=== PATIENT | male | born 1940 | race Caucasian/White ===

== ENCOUNTER 2017-12-15 16:58 | Inpatient (IN) | payer MEDICARE ==
[2017-12-15] MEDS ORDERED: SODIUM CHLORIDE 0.9% 1,000 ML IV ONE (17:20)
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
[2017-12-15] MEDS ORDERED: LORazepam 2 MG/ML INJ IV STA ×2 (17:48→22:24)
[2017-12-15 18:19] LABS: Basophils # (A) 0.1 k/uL (0-0.2); Basophils % (A) 1 %; Eosinophils # (A) 0.1 k/uL (0-0.7); Eosinophils % (A) 1 %; HCT 37.5 % (39.0-53.0); HGB 12.3 gm/dL (13.0-17.5); Lymphocytes # (A) 1.2 k/uL (1.0-4.8); Lymphocytes % (A) 19 %; MCH 28.7 pg (25.0-35.0); MCHC 32.8 g/dL (31.0-37.0); MCV 87.6 fL (80.0-100.0); Monocytes # (A) 0.5 k/uL (0-1.0); Monocytes % (A) 7 %; Neutrophils # (A) 4.6 k/uL (1.3-7.7); Neutrophils % (A) 70 %; Platelet Count 211 k/uL (150-450); RBC 4.28 m/uL (4.30-5.90); RDW 12.8 % (11.5-15.5); WBC 6.5 k/uL (3.8-10.6)
[2017-12-15 18:29] LABS: Ammonia <9 umol/L (<30); Lactic Acid, Venous 1.7 mmol/L (0.7-2.0)
[2017-12-15 18:31] LABS: ALT 32 U/L (21-72); AST 26 U/L (17-59); Albumin 4.4 g/dL (3.5-5.0); Alcohol <10 mg/dL; Alkaline Phosphatase 148 U/L (38-126); Amylase 163 U/L (30-110); Anion Gap 14 mmol/L; Blood Urea Nitrogen 16 mg/dL (9-20); Carbon Dioxide 25 mmol/L (22-30); Chloride 100 mmol/L (98-107); Glucose 351 mg/dL (74-99); Lipase 645 U/L (23-300); Potassium 4.6 mmol/L (3.5-5.1); Sodium 139 mmol/L (137-145); Total Bilirubin 0.5 mg/dL (0.2-1.3); Total Protein 7.4 g/dL (6.3-8.2)
[2017-12-15] MEDS ORDERED: INSULIN REGULAR 100 UNIT/ML VIAL IV ONE (18:46)
[2017-12-15 18:54] LABS: Glucose,Whole Blood 325 mg/dL (75-99)
[2017-12-15 21:28] LABS: Appearance,Urine Clear (Clear); Bilirubin,Urine Negative (Negative); Blood,Urine Negative (Negative); Color,Urine Light Yellow; Glucose,Urine (UA) 4+ (Negative); Ketones,Urine Negative (Negative); Leukocyte Esterase,Urine Negative (Negative); Nitrite,Urine Negative (Negative); Protein,Urine Negative (Negative); Specific Gravity,Urine 1.023 (1.001-1.035); Urobilinogen,Urine <2.0 mg/dL (<2.0)
[2017-12-15 21:37] LABS: Glucose,Whole Blood 162 mg/dL (75-99)
[2017-12-15 21:41] LABS: Amphetamine Screen,Urine Not Detected (NotDetected); Barbiturate Screen,Urine Not Detected (NotDetected); Benzodiazepines Screen,Urine Not Detected (NotDetected); Cocaine Screen,Urine Not Detected (NotDetected); Methadone Screen, Urine Not Detected (NotDetected); Opiate Screen,Urine Not Detected (NotDetected); Oxycodone Screen, Urine Not Detected (NotDetected); Phencyclidine Screen,Urine Not Detected (NotDetected); Tricyclic Antidepressant,Urine Not Detected (NotDetected); Urn Cannabinoid Scrn Not Detected (NotDetected)
--- NOTE | 2017-12-15 23:54 | CT ---
EXAMINATION TYPE: CT brain wo con DATE OF EXAM: 12/15/2017 COMPARISON: 04/16/2013 HISTORY: AMS CT DLP: 1065.90 mGycm Automated exposure control for dose reduction was used. FINDINGS: There is cerebral cortical atrophy. There is no mass effect nor midline shift. There is no sign of in tracranial hemorrhage. The calvarium is intact. There is mild mucosal thickening in ethmoid sinuses. There are small fluid levels in the maxillary sinuses. IMPRESSION: CEREBRAL ATROPHY. NO ACUTE INTRACRANIAL ABNORMALITY. WHILE SINUSITIS. BRAIN IS STABLE COMPARED TO OLD EXAM.
[2017-12-16 07:16] LABS: Glucose,Whole Blood 197 mg/dL (75-99)
[2017-12-16] MEDS: INSULIN ASPART 100 UNIT/ML 1 ML 10 ML VIAL SQ SCH ×4 (07:20→21:00)
[2017-12-16] MEDS: LISINOPRIL 2.5 MG TAB PO SCH (08:39)
[2017-12-16] MEDS: DONEPEZIL 10 MG TAB PO SCH (08:39)
[2017-12-16] MEDS: ESCITALOPRAM 10 MG TAB PO SCH (08:39)
[2017-12-16] MEDS: FUROSEMIDE 20 MG TAB PO SCH (08:39)
[2017-12-16 12:51] LABS: Glucose,Whole Blood 203 mg/dL (75-99)
[2017-12-16] MEDS ORDERED: ACETAMINOPHEN TAB 325 MG TAB PO PRN (14:17)
[2017-12-16] MEDS ORDERED: MAG HYDROX/AL HYDROX/SIMETH 30 ML CUP PO PRN (14:17)
[2017-12-16] MEDS ORDERED: MAGNESIUM HYDROXIDE 2,400 MG/10 ML CUP PO PRN (14:17)
[2017-12-16] MEDS: glipiZIDE 5 MG TAB PO SCH (15:36)
[2017-12-16 16:01] VITALS: BMI 24.2
[2017-12-16 17:30] LABS: Glucose,Whole Blood 252 mg/dL (75-99)
[2017-12-16] MEDS: metFORMIN 500 MG TAB PO SCH (17:45)
[2017-12-16 20:22] LABS: Glucose,Whole Blood 238 mg/dL (75-99)
[2017-12-16] MEDS ORDERED: NON-FORMULARY DRUG (Sitagliptin Phos/Metformin Hcl [Janumet 50-1,000 Mg Tablet] 1 TAB) PO SCH (21:00)
[2017-12-16] MEDS ORDERED: ATORVASTATIN 80 MG TAB PO SCH (21:00)
[2017-12-16] MEDS: ATORVASTATIN 80 MG TAB PO SCH (21:29)
[2017-12-17 06:58] LABS: Glucose,Whole Blood 189 mg/dL (75-99)
[2017-12-17] MEDS: INSULIN ASPART 100 UNIT/ML 1 ML 10 ML VIAL SQ SCH ×4 (07:41→21:00)
[2017-12-17] MEDS: INSULIN DETEMIR 100 UNIT/ML 10 ML VIAL SQ SCH (07:42)
[2017-12-17] MEDS ORDERED: FUROSEMIDE 20 MG TAB PO SCH (09:00)
[2017-12-17] MEDS ORDERED: ESCITALOPRAM 10 MG TAB PO SCH (09:00)
[2017-12-17] MEDS ORDERED: LISINOPRIL 2.5 MG TAB PO SCH (09:00)
[2017-12-17] MEDS ORDERED: DONEPEZIL 10 MG TAB PO SCH (09:00)
[2017-12-17] MEDS: LINAGLIPTIN 5 MG TABLET PO SCH (09:10)
[2017-12-17] MEDS: ESCITALOPRAM 10 MG TAB PO SCH (09:10)
[2017-12-17] MEDS: FUROSEMIDE 20 MG TAB PO SCH (09:10)
[2017-12-17] MEDS: LISINOPRIL 2.5 MG TAB PO SCH (09:10)
[2017-12-17] MEDS: metFORMIN 500 MG TAB PO SCH ×2 (09:10→17:32)
[2017-12-17] MEDS: DONEPEZIL 10 MG TAB PO SCH (09:11)
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
[2017-12-17 12:11] LABS: Glucose,Whole Blood 173 mg/dL (75-99)
[2017-12-17] MEDS ORDERED: glipiZIDE 10 MG TAB PO SCH (12:30)
[2017-12-17] MEDS: glipiZIDE 5 MG TAB PO SCH (12:52)
--- NOTE | 2017-12-17 14:38 | P.HP ---
Psychiatric H&P - . H&P Date: 12/17/17 History & Physical: IDENTIFYING DATA: Mr. Gomez is a 77-year-old male who has a history of Alzheimer's disease. He was admitted to the psychiatric unit involuntarily. HISTORY OF PRESENT ILLNESS: I interviewed the patient, reviewed the record and spoke to his . His only concern was ongoing conflict with his family including his , niece and son. He was unable to explain the reason for this hospitalization. He stated that he was in his car after leaving his niece' s home. The police pulled him over and brought him to the hospital. His completed a petition for hospitalization where she wrote that he is unable to control his personal behavior, he has frequent verbal outbursts leading to extreme foul language and leaving the house with no known destination and getting lost. She also noted in the petition that he made the statement "I'm either going to kill myself or kill you." His stated that the family noticed a change in his functioning and memory beginning about 4 years ago. They arranged an evaluation by a community neurologist who made the diagnosis of Alzheimer's disease. The patient refused continued follow-up with the neurologist. The neurologist initiated treatment with Aricept and titrated dose to a maximum of 10 mg per day. The reported little to no change in his functioning or his memory with the increased dose of Aricept. His family are primarily concerned about his impulsiveness, irritability and aggressive behavior. His reported this is a marked change from his normal self. She provided a list of her concerns and observations. For example, she complained that he rejects care suggestions from both his family and professionals. He canceled medical appointments including recommendations for mental health treatment and follow-up by the neurologist. He leaves the house in his car with no specific destination and becomes lost. For example she said that he called his sister [place] [address] [place] [address] and his sister had to drive to him and guide him back to her house. His called the [facility] after he had been missing from home for 9 hours. He had not taken his medication or eating properly. She complained that he currently has no ability to control his emotions and has extreme verbal outbursts and irrational behavior. He has displayed unusual r behaviors such as removing batteries from the garage door openers, withdrawing money from the bank account and carrying large sums of guevara, slamming doors, throwing objects such as coffee pots, remote controls, phone and shoes. She stated that rather than coming home to get his clothes she goes out and buys new clothing. He seems paranoid and feels people are hiding information and not communicating with him. She described incidents where he became confused, For example, in the middle of night he was "hallucinating or confused" where he woke up "messing with the bad" trying to "fix something" and when confronted he "snapped out of it and said "never mind". He does not remember his address or his phone number. He is confused about the month, the day and the year. He has difficulty conversing with people, he wanders around the house with no purpose, he has difficulty with basic household repairs and he easily gets frustrated. PAST PSYCHIATRIC HISTORY: He has had no past psychiatric hospitalizations or outpatient mental health treatment. PAST MEDICAL HISTORY: Diabetes mellitus, hyperlipidemia, hypertension, BPH. Intravenous consult appreciated. Computed tomography scan of the brain shows generalized atrophy. ALLERGIES: [No known drug allergies]. SUBSTANCE USE HISTORY: He denied history of drug or alcohol use. His denied that he is had a history of alcohol use problems.. Tobacco use: He is a former smoker. FAMILY PSYCHIATRIC/SUBSTANCE USE HISTORY: He is unaware of family history of mental illness. LEGAL HISTORY: Denied history of legal problems.. SOCIAL HISTORY: His born and raised in [place]. He graduated from high school. He's been to his current and only for 30 years. They have 2 adult children. One son lives at home. He is retired after 30 years from [employer]. He served in the [employer] and received an honorable discharge. He lives with his in their own home. He receives pension and Social Security. MENTAL STATUS EXAM: He presented as a casually groomed pleasant elderly man who maintained eye contact and appeared to attend to the interview. He had no distinguishing features or prominent physical abnormalities. He had a blunted and angry facial expression. He was alert and oriented to person, month and year. He knew he was in the hospital but did not know the name of the hospital. He showed slight psychomotor retardation but no abnormal movements. He had a normal gait. His speech was spontaneous with slight decrease in rhythm and volume. He had no articulation difficulties. His affect was dysphoric consisting of irritability and, anger and depression. He denied suicidal ideation or wishes. He denied homicidal ideation. He denied feeling hopeless, helpless or worthless. He ruminated about his family and his perception that his family are intrusive and uncaring. He did not express ideas reference or clear paranoid ideation. His thinking was concrete but his associations appeared logical. He did not demonstrate blocking or neologisms. He denied hallucinations and did not appear to be responding to internal stimuli. He denied hallucinations and did not appear to responding to internal stimuli. Global impression of intellect is average. He does not appear to have insight or understanding of his illness. We completed the Mini-Mental state exam and the frontal assessment staging of Alzheimer's disease. His total score on the Mini-Mental state exam was 19 consistent with mild to moderate cognitive impairment. He did not know the year or the date. He did not know the town or hospital. He was able to register 3 memory words but did not recall them after the attention and calculation component of the examination. He was unable to count backwards from 100 or spell the word "world " backwards. He demonstrated intact language skills that he name the pen and glasses. He is able to repeat the phrase "no if's, ands, and pots." He was able to follow 3 stage command, write a sentence and copy the drawing of intersecting pentagrams. We obtain information for the staging of the Functional Assessment Staging of Alzheimer's Disease from his . She describes problems with for for forgetting the location of objects, traveling to new locations and handling personal finances. He requires some assistance which selecting proper clothing but has no difficulty with putting clothing on properly. He shows no impairment with toileting, bathing, ambulating or communication skills. His FAST stage she has in the range of 3 or 4. STRENGTHS: Supportive family, adequate housing, adequate finances, access to appropriate medical care. WEAKNESSES: Health problems, progressive dementia. IMPRESSION: He is a 77-year-old male who has a history of probable Alzheimer's disease. He presented to the unit involuntarily with increasing impairment in functioning, paranoia, irritability and a change in personality. He shows no insight or understanding of his illness. The change in his personality with the irritability and increased aggressiveness is causing marked distress and concerned and his family. His performance on Mini- Mental state and the Functional Assessment Station of Alzheimer's Disease show mild to moderate functional impairment. It appears that the change in personality with the irritability and aggressiveness is disproportionate to the decline in his cognitive functioning. He should be treated on an inpatient basis with a combination of psychopharmacology and multimodal therapy. 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 Completed a second clinical certificate and proceed with involuntary hospitalization. Continue Aricept 10 mg daily, continue his other medications as recommended by the entry level sales consultant garde manger. When we receive a involuntary treatment order begin a trial of Depakote. Encourage participation in therapeutic groups and activities. Evaluate clinical status response to treatment on a daily basis. Laboratory Last Values WBC 6.5 k/uL (3.8-10.6) 12/15/17 18: RBC 4.28 m/uL (4.30-5.90) L 12/15/17 18: Hgb 12.3 gm/dL (13.0-17.5) L 12/15/17 18: Hct 37.5 % (39.0-53.0) L 12/15/17 18: MCV 87.6 fL (80.0-100.0) 12/15/17 18: MCH 28.7 pg (25.0-35.0) 12/15/17 18: MCHC 32.8 g/dL (31.0-37.0) 12/15/17 18: RDW 12.8 % (11.5-15.5) 12/15/17 18: Plt Count 211 k/uL (150-450) 12/15/17 18:02 Neutrophils % 70 % 12/15/17 18:02 Lymphocytes % 19 % 12/15/17 18:02 Monocytes % 7 % 12/15/17 18:02 Eosinophils % 1 % 12/15/17 18: Basophils % 1 % 12/15/17 18:02 Neutrophils # 4.6 k/uL (1.3-7.7) 12/15/17 18:02 Lymphocytes # 1.2 k/uL (1.0-4.8) 12/15/17 18: Monocytes # 0.5 k/uL (0-1.0) 12/15/17 18:02 Eosinophils # 0.1 k/uL (0-0.7) 12/15/17 18:02 Basophils # 0.1 k/uL (0-0.2) 12/15/17 18:02 Sodium 139 mmol/L (137-145) 12/15/17 18:02 Potassium 4.6 mmol/L (3.5-5.1) 12/15/17 18:02 Chloride 100 mmol/L (98-107) 12/15/17 18:02 Carbon Dioxide 25 mmol/L (22-30) 12/15/17 18:02 Anion Gap 14 mmol/L 12/15/17 18:02 BUN 16 mg/dL (9-20) 12/15/17 18:02 Creatinine 1.00 mg/dL (0.66-1.25) 12/15/17 18:02 Est GFR (CKD-EPI)AfAm 84 (>60 ml/min/1.73 sqM) 12/15/17 18:02 Est GFR (CKD-EPI)NonAf 72 (>60 ml/min/1.73 sqM) 12/15/17 18:02 Glucose 351 mg/dL (74-99) H 12/15/17 18:02 POC Glucose (mg/dL) 189 mg/dL (75-99) H 12/17/17 06:54 POC Glu Agricultural Economics Teacher ID Ghazal Chacon 12/17/17 06:54 Plasma Lactic Acid Joseph 1.7 mmol/L (0.7-2.0) 12/15/17 18: Calcium 10.0 mg/dL (8.4-10.2) 12/15/17 18:02 Total Bilirubin 0.5 mg/dL (0.2-1.3) 12/15/17 18:02 AST 26 U/L (17-59) 12/15/17 18:02 ALT 32 U/L (21-72) 12/15/17 18:02 Alkaline Phosphatase 148 U/L (38-126) H 12/15/17 18:02 Ammonia <9 umol/L (<30) 12/15/17 18:02 Total Protein 7.4 g/dL (6.3-8.2) 12/15/17 18:02 Albumin 4.4 g/dL (3.5-5.0) 12/15/17 18:02 Amylase 163 U/L (30-110) H 12/15/17 18:02 Lipase 645 U/L (23-300) H 12/15/17 18:02 Urine Color Light Yellow 12/15/17 21:17 Urine Appearance Clear (Clear) 12/15/17 21:17 Urine pH 6.0 (5.0-8.0) 12/15/17 21:17 Ur Specific [place] 1.023 (1.001-1.035) 12/15/17 21:17 Urine Protein Negative (Negative) 12/15/17 21:17 Urine Glucose (UA) 4+ (Negative) H 12/15/17 21:17 Urine Ketones Negative (Negative) 12/15/17 21:17 Urine Blood Negative (Negative) 12/15/17 21:17 Urine Nitrite Negative (Negative) 12/15/17 21:17 Urine Bilirubin Negative (Negative) 12/15/17 21:17 Urine Urobilinogen <2.0 mg/dL (<2.0) 12/15/17 21:17 Ur Leukocyte Esterase Negative (Negative) 12/15/17 21:17 Urine Opiates Screen Not Detected (NotDetected) 12/15/17 21:17 Ur Oxycodone Screen Not Detected (NotDetected) 12/15/17 21:17 Urine Methadone Screen Not Detected (NotDetected) 12/15/17 21:17 Ur Propoxyphene Screen Not Detected (NotDetected) 12/15/17 21:17 Ur Barbiturates Screen Not Detected (NotDetected) 12/15/17 21:17 U Tricyclic Antidepress Not Detected (NotDetected) 12/15/17 21:17 Ur Phencyclidine Scrn Not Detected (NotDetected) 12/15/17 21:17 Ur Amphetamines Screen Not Detected (NotDetected) 12/15/17 21:17 U Methamphetamines Scrn Not Detected (NotDetected) 12/15/17 21:17 U Benzodiazepines Scrn Not Detected (NotDetected) 12/15/17 21:17 Urine Cocaine Screen Not Detected (NotDetected) 12/15/17 21:17 U Marijuana (THC) Screen Not Detected (NotDetected) 12/15/17 21:17 Serum Alcohol <10 mg/dL 12/15/17 18:02 Acetone, Qual Negative (Negative) 12/15/17 18:02 12/17/17 09:11 12/17/17 14:00 12/17/17 14:27 health problems, progressive dementia
[2017-12-17 17:41] LABS: Glucose,Whole Blood 86 mg/dL (75-99)
[2017-12-17 18:27] LABS: Hemoglobin A1C 7.5 % (4.0-6.0)
[2017-12-17 20:18] LABS: Glucose,Whole Blood 107 mg/dL (75-99)
[2017-12-17] MEDS: ATORVASTATIN 80 MG TAB PO SCH (21:10)
[2017-12-18 06:40] LABS: Glucose,Whole Blood 75 mg/dL (75-99)
[2017-12-18] MEDS: INSULIN ASPART 100 UNIT/ML 1 ML 10 ML VIAL SQ SCH ×4 (07:47→20:13)
[2017-12-18 07:58] LABS: Glucose,Whole Blood 113 mg/dL (75-99)
[2017-12-18] MEDS: INSULIN DETEMIR 100 UNIT/ML 10 ML VIAL SQ SCH (08:28)
[2017-12-18] MEDS: metFORMIN 500 MG TAB PO SCH ×2 (08:45→19:23)
[2017-12-18] MEDS: LISINOPRIL 2.5 MG TAB PO SCH (08:46)
[2017-12-18] MEDS: FUROSEMIDE 20 MG TAB PO SCH (08:46)
[2017-12-18] MEDS: DONEPEZIL 10 MG TAB PO SCH (08:46)
[2017-12-18] MEDS: LINAGLIPTIN 5 MG TABLET PO SCH (08:46)
[2017-12-18] MEDS: ESCITALOPRAM 10 MG TAB PO SCH (08:46)
[2017-12-18 12:15] LABS: Glucose,Whole Blood 218 mg/dL (75-99)
[2017-12-18] MEDS: glipiZIDE 5 MG TAB PO SCH (12:52)
--- NOTE | 2017-12-18 13:07 | P.PN ---
Progress Note - Text Progress Note Date: 12/18/17 I reviewed the medical record, interviewed the patient and discuss his treatment and treatment plan during team meeting. He had no comments regarding the family meeting we had yesterday. He stated that he told his that he was not going to talk during the meeting. When I inquired about some of the concerns his raised he replied that she is entitled to her opinion. He denied that he is been more irritable or has had difficulty with his temper. He denied that he has episodes of confusion or that he became lost and required his sister's assistance to guide him home We talked about his experiences when he lived in [place] and his feelings about moving back to [place]. he stated he did not want to move to [place]. He had friends in [place] but is much less active here in [place]. He does not remember the home telephone number, his address or the city where he lives. We completed the [facility] Cognitive Assessment and discussed a trial of Depakote. He agreed to the medication but complained that he is already "taking too many medications." On mental status he presented as a neatly groomed elderly male who was pleasant on approach. He may contact and appeared to attend to the exam. He had no distinguishing features or prominent physical modalities. He had a angry facial expression. He was alert and oriented to person. He knew that he was in the hospital was located in [facility]. He showed slight psychomotor retardation but no abnormal movements. His gait was slow but steady. His speech was spontaneous, rate, rhythm and volume. He had no articulation difficulties. His affect was slightly irritable but stable and appropriate. He smiled during interview. He denied suicidal ideation or wishes. He denied homicidal ideation. He did not express such depressive cognitions as hopelessness, helplessness or worthlessness. He did not express ideas reference, paranoid ideation or delusions. His thinking was concrete but his associations appeared coherent. He denied hallucinations and did not appear to be responding to internal stimuli. On the [facility] Cognitive Assessment Of His Total Score Was 16/30 ; score greater than 26 is considered normal. he showed no impairments in visual spatial /executive functioning. He had difficulty with naming and didn't recognize the image of a rhinoceros. He had slight difficulties with attention and that he could not get the order of 4 digits proper and made errors when subtracting serial sevens. He demonstrated no impairment with language skills. He had difficulty with abstraction. He was unable to recall any of the 5 words. He knew the month , this city and understood that he was in hospital. He did not know her with the date. 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 Application and supporting documents have been supported probate Court for involuntary hospitalization. Continue Aricept 10 mg daily and Lexapro 10 mg daily. begin a trial of Depakote ER 250 mg at bedtime. Encourage participation in therapeutic groups and activities. Evaluate clinical status response to treatment daily basis.
[2017-12-18 17:30] LABS: Glucose,Whole Blood 54 mg/dL (75-99)
[2017-12-18 17:30] LABS: Glucose,Whole Blood 51 mg/dL (75-99)
[2017-12-18 17:54] LABS: Glucose,Whole Blood 61 mg/dL (75-99)
[2017-12-18 19:01] LABS: Glucose,Whole Blood 100 mg/dL (75-99)
[2017-12-18 19:01] LABS: Glucose,Whole Blood 78 mg/dL (75-99)
[2017-12-18 20:11] LABS: Glucose,Whole Blood 179 mg/dL (75-99)
[2017-12-18] MEDS: DIVALPROEX ER 250 MG TAB.ER.24H PO SCH (20:11)
[2017-12-18] MEDS: ATORVASTATIN 80 MG TAB PO SCH (20:11)
[2017-12-19 06:19] LABS: Glucose,Whole Blood 91 mg/dL (75-99)
[2017-12-19] MEDS: INSULIN ASPART 100 UNIT/ML 1 ML 10 ML VIAL SQ SCH ×4 (07:57→21:07)
[2017-12-19] MEDS: ESCITALOPRAM 10 MG TAB PO SCH (08:33)
[2017-12-19] MEDS: DONEPEZIL 10 MG TAB PO SCH (08:33)
[2017-12-19] MEDS: INSULIN DETEMIR 100 UNIT/ML 10 ML VIAL SQ SCH (08:34)
[2017-12-19] MEDS: LISINOPRIL 2.5 MG TAB PO SCH (10:02)
[2017-12-19] MEDS: FUROSEMIDE 20 MG TAB PO SCH (10:02)
[2017-12-19 12:37] LABS: Glucose,Whole Blood 153 mg/dL (75-99)
--- NOTE | 2017-12-19 13:51 | P.PN ---
Progress Note - Text Progress Note Date: 12/19/17 I reviewed the medical record, interviewed the patient and discuss his treatment and treatment plan during team meeting. He was without complaint or concern. He did not remember our discussion yesterday about beginning a trial of Depakote and did not remember that he had taken his first dose of Depakote last night. Staff reported that he had a good visit with his yesterday. He slept the night. He has not participated in therapeutic groups or activities. He is not been irritable, aggressive or hostile towards staff or peers. He presented as a neatly groomed casually dressed elderly man who was pleasant on approach. He made eye contact and appeared to attend to the interview. He had a blunted but bright facial expression he was alert and oriented to person only. He showed slight psychomotor retardation but no abnormal movements. Her speech was not spontaneous but had normal rate and rhythm. He answered questions with brief statements. His affect was blunted but stable and appropriate. He did not express suicidal ideation, wishes or homicidal ideation. He denied feeling hopeless or helpless. He did not express ideas reference or paranoid ideation. His thinking is concrete and associations appeared coherent and logical. He didn't express blocking or perseveration. He denied hallucinations and didn't appear to be responding to internal stimuli. Impression: probable major neurocognitive disorder due to Alzheimer's disease with behavioral disturbances Plan continue inpatient hospitalization pending the hearing for involuntary hospitalization. Continue Aricept 10 mg daily. Continue Depakote ER 250 mg at bedtime titrate based on tolerance and clinical effect. Continue to monitor interactions with staff and peers to for irritability, frustration tolerance and anger. Taper and discontinue Lexapro prior to discharge. Encourage participation as much as possible in therapeutic groups and activities. Evaluate clinical status response to treatment on a daily basis.
[2017-12-19 17:53] LABS: Glucose,Whole Blood 150 mg/dL (75-99)
[2017-12-19 20:19] LABS: Glucose,Whole Blood 137 mg/dL (75-99)
[2017-12-19] MEDS: ATORVASTATIN 80 MG TAB PO SCH (21:06)
[2017-12-19] MEDS: DIVALPROEX ER 250 MG TAB.ER.24H PO SCH (21:06)
[2017-12-20 05:45] LABS: Glucose,Whole Blood 83 mg/dL (75-99)
[2017-12-20] MEDS: INSULIN ASPART 100 UNIT/ML 1 ML 10 ML VIAL SQ SCH ×4 (07:48→21:04)
[2017-12-20] MEDS: ESCITALOPRAM 10 MG TAB PO SCH (08:48)
[2017-12-20] MEDS: DONEPEZIL 10 MG TAB PO SCH (08:48)
[2017-12-20] MEDS: INSULIN DETEMIR 100 UNIT/ML 10 ML VIAL SQ SCH (08:48)
[2017-12-20] MEDS: LISINOPRIL 2.5 MG TAB PO SCH ×2 (08:48→08:51)
[2017-12-20] MEDS: FUROSEMIDE 20 MG TAB PO SCH (08:48)
[2017-12-20 12:58] LABS: Glucose,Whole Blood 135 mg/dL (75-99)
--- NOTE | 2017-12-20 14:59 | P.PN ---
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 He was without complaint or concern. He alleged that he is sleeping well and denied side effects to his current medication. He denied feeling depressed, irritable or angry. He denied that he has had problems with his . He is understanding of the reason for this hospitalization was very concrete. He believes that his was angry at him because he did not let her drive his car and his sister called the police because she did not want him to drive. The staff reported that he became loud and appeared irritable during a telephone conversation with his . Objective - Vital Signs Vital signs: Vital Signs Temp 98.1 F 12/20/17 06:01 Pulse 70 12/20/17 10:50 Resp 17 12/20/17 10:50 BP 100/51 12/20/17 10:50 Pulse Ox 97 12/18/17 14:46 - Psychiatric Psychiatric Comment(s): He presented as a neatly groomed and casually dressed elderly male who was pleasant on approach. He made eye contact and appeared to attend to the interview. He had a blunted but bright facial expression. He is alert and oriented to person, month and year. He showed slight psychomotor retardation but no abnormal movements. His speech was spontaneous with decreased rate and rhythm. His affect was blunted but stable and appropriate. He denied suicidal ideation or wishes. He denied homicidal ideation. He denied that he is angry with his . He did not express phobias, paranoid ideation or delusional thoughts. His thinking was concrete but his associations appeared logical coherent. He denied hallucinations and didn't appear to be responding to internal stimuli. 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 Continue Depakote 250 mg at bedtime. Decrease Lexapro to 5 mg daily. Consider trial of Namenda. laundry worker to schedule a family meeting early next week to evaluate patient's behavior and interaction with his . Consider discharge next week. Encourage participation in therapeutic groups and activities. Evaluate clinical status response to treatment on a daily basis.
[2017-12-20 17:55] LABS: Glucose,Whole Blood 106 mg/dL (75-99)
[2017-12-20] MEDS: ATORVASTATIN 80 MG TAB PO SCH (19:59)
[2017-12-20] MEDS: DIVALPROEX ER 250 MG TAB.ER.24H PO SCH (20:00)
[2017-12-20 20:24] LABS: Glucose,Whole Blood 219 mg/dL (75-99)
[2017-12-21 05:59] LABS: Glucose,Whole Blood 77 mg/dL (75-99)
[2017-12-21] MEDS: INSULIN ASPART 100 UNIT/ML 1 ML 10 ML VIAL SQ SCH ×4 (07:43→20:10)
[2017-12-21] MEDS: LISINOPRIL 2.5 MG TAB PO SCH (08:41)
[2017-12-21] MEDS: INSULIN DETEMIR 100 UNIT/ML 10 ML VIAL SQ SCH (08:41)
[2017-12-21] MEDS: DONEPEZIL 10 MG TAB PO SCH (08:42)
[2017-12-21] MEDS: ESCITALOPRAM 5 MG TAB PO SCH (08:42)
[2017-12-21] MEDS: FUROSEMIDE 20 MG TAB PO SCH (08:42)
[2017-12-21 12:49] LABS: Glucose,Whole Blood 225 mg/dL (75-99)
[2017-12-21 17:38] LABS: Glucose,Whole Blood 67 mg/dL (75-99)
[2017-12-21 17:58] LABS: Glucose,Whole Blood 82 mg/dL (75-99)
[2017-12-21] MEDS: ATORVASTATIN 80 MG TAB PO SCH (20:12)
[2017-12-21] MEDS: DIVALPROEX ER 250 MG TAB.ER.24H PO SCH (20:12)
[2017-12-21 20:20] LABS: Glucose,Whole Blood 184 mg/dL (75-99)
--- NOTE | 2017-12-21 21:04 | P.PN ---
Progress Note - Text Progress Note Date: 12/21/17 Patient stated his has visited him today. He reports he'll go back to live with his up his discharge from the hospital. Reports being compliant with his medications. He however does not know the names of the medications he takes. He reports good sleep and appetite. He denies anger or agitation or irritability. He reports going to all his groups. He denies current symptoms of depression. 77-year-old male. He appears his stated age in fair grooming and hygiene. No abnormal movements noted.He maintains good eye contact. Speech and thought processes are linear and goal directed. His mood is reported as good and affect appropriate. He denies auditory or visual hallucinations. No paranoia. Denies current suicidal or homicidal ideations. He is alert and oriented 4. Continue Depakote 250 mg at bedtime, Lexapro to 5 mg daily, and Namenda. Monitor for symptoms.
[2017-12-22 06:15] LABS: Glucose,Whole Blood 73 mg/dL (75-99)
[2017-12-22] MEDS: INSULIN ASPART 100 UNIT/ML 1 ML 10 ML VIAL SQ SCH ×4 (08:35→20:52)
[2017-12-22] MEDS: FUROSEMIDE 20 MG TAB PO SCH (08:41)
[2017-12-22] MEDS: ESCITALOPRAM 5 MG TAB PO SCH (08:41)
[2017-12-22] MEDS: DONEPEZIL 10 MG TAB PO SCH (08:41)
[2017-12-22] MEDS: INSULIN DETEMIR 100 UNIT/ML 10 ML VIAL SQ SCH (08:42)
[2017-12-22] MEDS: LISINOPRIL 2.5 MG TAB PO SCH (08:43)
[2017-12-22 12:38] LABS: Glucose,Whole Blood 168 mg/dL (75-99)
[2017-12-22 17:38] LABS: Glucose,Whole Blood 201 mg/dL (75-99)
--- NOTE | 2017-12-22 18:22 | P.PN ---
Progress Note - Text Progress Note Date: 12/22/17 Patient was seen today. He reports feeling happy. He stated his will be visiting him again tonight. He is no longer angry he states. He reports good sleep and appetite. He denies symptoms of depression. rePorts going to all his groups. He plans to go back to live with his . 77-year-old male, he appeared his stated age and fair grooming and hygiene. He is pleasant and cooperative. Maintains good eye contact. No abnormal movements noted. His speech and thought processes are linear and goal directed. Mood is reported as happy affect appropriate. Denies auditory or visual hallucinations. His paranoia. He is alert and oriented 4. Insight and judgment are improving. Continue Depakote 250 mg at bedtime. Continue Lexapro 5 mg daily. Continue Namenda. Monitor for symptoms. Encourage participation in tenorio milieu and therapeutic groups. utility worker roller shop to schedule a family meeting with his and co-ordinate discharge.
[2017-12-22 20:06] LABS: Glucose,Whole Blood 152 mg/dL (75-99)
[2017-12-22] MEDS: DIVALPROEX ER 250 MG TAB.ER.24H PO SCH (20:49)
[2017-12-22] MEDS: ATORVASTATIN 80 MG TAB PO SCH (20:49)
[2017-12-23 06:16] LABS: Glucose,Whole Blood 97 mg/dL (75-99)
[2017-12-23] MEDS: INSULIN ASPART 100 UNIT/ML 1 ML 10 ML VIAL SQ SCH ×4 (07:40→20:09)
[2017-12-23] MEDS: INSULIN DETEMIR 100 UNIT/ML 10 ML VIAL SQ SCH (08:27)
[2017-12-23] MEDS: FUROSEMIDE 20 MG TAB PO SCH (08:27)
[2017-12-23] MEDS: LISINOPRIL 2.5 MG TAB PO SCH (08:27)
[2017-12-23] MEDS: ESCITALOPRAM 5 MG TAB PO SCH (08:27)
[2017-12-23] MEDS: DONEPEZIL 10 MG TAB PO SCH (08:27)
[2017-12-23 12:04] LABS: Glucose,Whole Blood 153 mg/dL (75-99)
--- NOTE | 2017-12-23 13:11 | P.PN ---
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 He was without complaint or concern. He reported a good visit with his over the weekend. He denied feeling depressed, irritable or angry. Nursing staff reported that his is "satisfied" with treatment and feels that he is less irritable than prior to admission. Objective - Vital Signs Vital signs: Vital Signs Temp 97.9 F 12/23/17 06:36 Pulse 67 12/23/17 08:30 Resp 18 12/23/17 08:30 BP 123/60 12/23/17 08:30 Pulse Ox 97 12/18/17 14:46 Intake & Output 12/22/17 12/23/17 12/23/17 18:59 06:59 18:59 Weight 70.9 kg - Psychiatric Psychiatric Comment(s): He presented as a neatly groomed casually dressed elderly man who was pleasant on approach. He made eye contact and appeared to attend to the interview. He had a blunted but bright facial expression he was alert and oriented to person only. He showed slight psychomotor retardation but no abnormal movements. Her speech was not spontaneous but had normal rate and rhythm. He answered questions with brief statements. His affect was blunted but stable and appropriate. He did not express suicidal ideation, wishes or homicidal ideation. He denied feeling hopeless or helpless. He did not express ideas reference or paranoid ideation. His thinking is concrete and associations appeared coherent and logical. He denied hallucinations and didn't appear to be responding to internal stimuli. 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 Continue Depakote 250 mg at bedtime. Discontinue Lexapro to 5 mg daily. Begin a trial of Namenda 5 mg daily and titrated according to clinical response and side effects. sand worker to schedule a family meeting early next week to evaluate patient's behavior and interaction with his . Consider discharge next week. Encourage participation in therapeutic groups and activities. Evaluate clinical status response to treatment on a daily basis.
[2017-12-23] MEDS: MEMANTINE 5 MG TAB PO SCH (14:11)
[2017-12-23 14:18] VITALS: RESP 16
[2017-12-23 17:44] LABS: Glucose,Whole Blood 124 mg/dL (75-99)
[2017-12-23 20:11] LABS: Glucose,Whole Blood 175 mg/dL (75-99)
[2017-12-23] MEDS: DIVALPROEX ER 250 MG TAB.ER.24H PO SCH (20:11)
[2017-12-23] MEDS: ATORVASTATIN 80 MG TAB PO SCH (20:11)
[2017-12-24 06:02] LABS: Glucose,Whole Blood 65 mg/dL (75-99)
[2017-12-24 06:16] LABS: Glucose,Whole Blood 79 mg/dL (75-99)
[2017-12-24 06:31] VITALS: BP 136/60; PULSE 68; TEMP 98.2
[2017-12-24] MEDS: INSULIN ASPART 100 UNIT/ML 1 ML 10 ML VIAL SQ SCH (07:45)
[2017-12-24] MEDS: INSULIN DETEMIR 100 UNIT/ML 10 ML VIAL SQ SCH (08:14)
[2017-12-24] MEDS: MEMANTINE 5 MG TAB PO SCH (08:14)
[2017-12-24] MEDS: FUROSEMIDE 20 MG TAB PO SCH (08:14)
[2017-12-24] MEDS: LISINOPRIL 2.5 MG TAB PO SCH (08:14)
[2017-12-24] MEDS: DONEPEZIL 10 MG TAB PO SCH (08:14)
--- NOTE | 2017-12-24 13:15 | P.DS ---
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 His only concern on admission was ongoing conflict with his family, niece and son. He was unable to explain the reason for this hospitalization and repeatedly referred to an incident where he left home with his car when his and his sister did not want him to drive. His completed the petition and reported increasing irritability, argumentativeness and memory impairments. His family noticed a change in his functioning and memory beginning about 4 years ago. He was evaluated by a community neurologist who made a diagnosis of Alzheimer's disease. The patient refused follow up with the neurologist but continued Aricept 10 mg daily as prescribed by a neurologist. The family doctor prescribed Lexapro 10 mg a day for treatment of his restlessness and agitation. We admitted him to the psychiatric unit involuntarily under the care of this automobile and property underwriter. We provided a copy a biopsychosocial assessment. His performance on neurocognitive testing (Mini-Mental state exam and the [place] cognitive assessment) were consistent with mild to moderate dementia. The client experience consultant head loft worker completed initial physical exam and medical history. In addition to dementia diagnosis the head loft worker diagnosed diabetes mellitus type 2, hyperglycemia (likely related to patient not taking his diabetic medications), hypertension and hyperlipidemia. We continued his outpatient medications including glipizide 5 mg daily, Janumet 50-1000 mg tablet 1 by mouth twice a day , Lantus 60 mg daily, furosemide 20 mg daily, Aricept 10 mg daily, Lipitor 80 mg daily and Lexapro 10 mg daily. We submitted the clinical certificate and proceeded with the involuntarily hospitalization application. The patient met with his assistant county attorney and consented to a deferral. We started Depakote ER 250 mg at bedtime for the treatment of his irritability. We gradually tapered and discontinued Lexapro and began a trial of Namenda 5 mg daily. The patient posed no management problem and required no emergency medications for the treatment of behavioral problems during this hospitalization. He was pleasant but had difficulty participating in therapeutic groups and activities. He maintained impeccable hygiene and grooming throughout the hospitalization. At time of discharge he presented as a neatly groomed elderly male who was pleasant on approach. He made eye contact and appeared to attend to the interview. He had a blunted facial expression. He was alert and oriented to person, month and year. He showed slight psychomotor retardation but no abnormal involuntary movements. His gait was slow but steady. His speech was not spontaneous and had decreased rate and rhythm. His affect was blunted but stable and appropriate. He denied suicidal ideation or wishes. He denied homicidal ideation. He denied feeling hopeless, helpless or worthless. He did not express ideas reference, paranoid ideation or delusional thoughts. His thinking was concrete but his associations were coherent. He denied hallucinations and did not appear to be responding to internal stimuli. Patient Condition at Discharge: Stable Plan - Discharge Summary Discharge Rx Participant: No New Discharge Prescriptions: New Divalproex ER [Depakote ER] 250 mg PO HS #30 tab.er.24h Memantine [Namenda] 5 mg PO DAILY #30 tab Continue Furosemide 20 mg PO DAILY Atorvastatin [Lipitor] 80 mg PO HS sitaGLIPtin PHOS/metFORMIN HCL [Janumet 50-1,000 mg Tablet] 1 tab PO BID glipiZIDE [Glipizide] 5 mg PO AC-LUNCH Lisinopril [Zestril] 2.5 mg PO DAILY Insulin Glargine [Lantus] 60 unit SQ DAILY Donepezil HCl [Aricept] 10 mg PO DAILY Discontinued Escitalopram [Lexapro] 10 mg PO DAILY Discharge Medication List Atorvastatin [Lipitor] 80 mg PO HS 12/21/15 [History] Furosemide 20 mg PO DAILY 12/21/15 [History] Lisinopril [Zestril] 2.5 mg PO DAILY 12/21/15 [History] glipiZIDE [Glipizide] 5 mg PO AC-LUNCH 12/21/15 [History] sitaGLIPtin PHOS/metFORMIN HCL [Janumet 50-1,000 mg Tablet] 1 tab PO BID [History] Donepezil HCl [Aricept] 10 mg PO DAILY 12/15/17 [History] Insulin Glargine [Lantus] 60 unit SQ DAILY 12/15/17 [History] Divalproex ER [Depakote ER] 250 mg PO HS #30 tab.er.24h 12/24/17 [Rx] Memantine [Namenda] 5 mg PO DAILY #30 tab 12/24/17 [Rx] Follow up Appointment(s)/Referral(s): [facility] [Outside] - 12/25/17 10:00 am (Home visit with Kecia) Franco Tracey DO [Primary Care Provider] - As Needed Patient Instructions/Handouts: Depression (GEN), Dementia (GEN) Activity/Diet/Wound Care/Special Instructions: Activity and diet as tolerated. Avoid the use of street drugs and alcohol. Take all medications as prescribed. When you are in need of refills on your medications please contact your medical provider and/or outpatient psychiatrist to have this done. Please go to scheduled outpatient appointment for aftercare treatment. If symptoms return or become worse call the crisis line at [phone] and/or go to the nearest emergency room for an evaluation. Discharge Disposition: HOME SELF-CARE
== END 2017-12-24 12:45 | disposition home or self-care (01) | DRG 57 ==
LOC: EC 16:58 → 3MHU 12-16 14:05
PROVIDERS: ADMIT Psychiatry & Neurology Psychiatry; ATTEND Psychiatry & Neurology Psychiatry
DX: G30.9 Alzheimer's disease, unspecified (principal); F02.81 Dementia in other diseases classified elsewhere, unspecified severity, with behavioral disturbance; E11.65 Type 2 diabetes mellitus with hyperglycemia; I10 Essential (primary) hypertension; E78.5 Hyperlipidemia, unspecified; N40.0 Benign prostatic hyperplasia without lower urinary tract symptoms; Z79.4 Long term (current) use of insulin; Z79.899 Other long term (current) drug therapy; Z87.891 Personal history of nicotine dependence; Z90.49 Acquired absence of other specified parts of digestive tract
CPT/HCPCS: 36415; 70450; 80053; 80306; 80320; 81003; 82009; 82140; 82150; 83036; 83605; 83690; 84443; 85025; 96361; 96374; 96376; 99285

== ENCOUNTER 2018-01-28 00:17 | Inpatient (IN) | payer MEDICARE ==
[2018-01-28 01:28] LABS: Glucose,Whole Blood 189 mg/dL (75-99)
--- NOTE | 2018-01-28 01:35 | ED ---
Psych HPI - General Chief Complaint: Psychiatric Symptoms Stated Complaint: Petition Time Seen by Provider: 01/28/18 01:19 Source: EMS, RN notes reviewed Mode of arrival: EMS - History of Present Illness Initial Comments: This is a 77-year-old male who presents to the emergency department for mental health evaluation. Patient is being petitioned by his family members. He has a history of being admitted for psychiatric issues. Patient has recently become very angry and agitated. Today, he made verbal threats about harming himself and his family members. Patient states that he does not want to speak with me. He states "I feel great." Patient is very angry and does not feel like he needs to be here. He denies any recent illnesses or infections. States he is a nonsmoker. Denies fevers or chills, chest pain or short of breath, abdominal pain, nausea or vomiting, dysuria or hematuria. Patient states that he does take insulin for diabetes but states that "I'm not going take it anymore because I don't wanna." - Related Data Home Medications Medication Instructions Recorded Confirmed Atorvastatin [Lipitor] 80 mg PO HS 12/21/15 01/28/18 Furosemide 20 mg PO DAILY 12/21/15 01/28/18 Lisinopril [Zestril] 2.5 mg PO DAILY 12/21/15 01/28/18 glipiZIDE [Glipizide] 5 mg PO AC-LUNCH 12/21/15 01/28/18 sitaGLIPtin PHOS/metFORMIN HCL 1 tab PO BID 12/21/15 01/28/18 [Janumet 50-1,000 mg Tablet] Donepezil HCl [Aricept] 10 mg PO DAILY 12/15/17 01/28/18 Insulin Glargine [Lantus] 60 unit SQ DAILY 12/15/17 01/28/18 Previous Rx's Medication Instructions Recorded Divalproex ER [Depakote ER] 250 mg PO HS #30 tab.er.24h 12/24/17 Memantine [Namenda] 5 mg PO DAILY #30 tab 12/24/17 Allergies Allergy/AdvReac Type Severity Reaction Status Date / Time No Known Allergies Allergy Verified 01/28/18 00:29 Review of Systems ROS Statement: Those systems with pertinent positive or pertinent negative responses have been documented in the HPI. ROS Other: All systems not noted in ROS Statement are negative. Past Medical History Past Medical History: Diabetes Mellitus, Hyperlipidemia, Hypertension, Prostate Disorder History of Any Multi-Drug Resistant Organisms: None Reported Past Surgical History: Appendectomy, Cholecystectomy Past Psychological History: Depression Smoking Status: Former smoker Past Alcohol Use History: None Reported Past Drug Use History: None Reported General Exam - General Exam Comments Initial Comments: General: Awake and alert, well-developed; in no apparent distress. HEENT: Head atraumatic, normocephalic. Pupils are equal, round and reactive to light. Extraocular movements intact. Oropharynx moist without erythema or exudate. Neck: Supple. Normal ROM. Cardiovascular: Regular rate and rhythm. No murmurs, rubs or gallops. Chest symmetrical. Respiratory: Lungs clear to auscultation bilaterally. No wheezes, rales or rhonchi. Normal respiratory effort with no use of accessory muscles. Musculoskeletal: Normal ROM, no tenderness bilateral upper and lower extremities. Ambulating normally. Skin: [place], warm and dry without rashes or lesions. Neurological: Alert and oriented x3. CN II-XII grossly intact. Speech is fluent and answers are appropriate. No focal neuro deficits. Psychiatric: Patient is very guarded. He is angry and agitated. Limitations: no limitations Course Vital Signs 01/28/18 00:20 Temperature 98.2 F Pulse Rate 75 Respiratory 20 Rate Blood Pressure 140/66 O2 Sat by Pulse 98 Oximetry Medical Decision Making - Medical Decision Making This is a 77-year-old male who presented to the emergency department for mental health evaluation. Patient is petitioned by his family. Patient reports feeling "great." He is angry and agitated. He is reported to have made threats against himself and his family earlier today. At this time, patient is guarded and not forthcoming. He does not want to speak with providers or nurses. Vital signs have been stable and patient is in no acute distress. CBC , CMP and UA are unremarkable. Patient's blood glucose is slightly elevated at 193. Patient states he did not take his insulin this evening. Given 2 units of Humalog. Negative ketones and no signs of infection within the urine. Patient denies any symptoms including fevers or chills, chest pain or shortness of breath, abdominal pain, nausea or vomiting. Patient evaluated by EPS nurse. He has a court hearing tomorrow regarding legal guardianship. Family does not want patient transferred to another facility because of this. Patient will be admitted to the psych unit here at [facility]. He is in no acute distress. - Lab Data Result diagrams: 01/28/18 01:35 01/28/18 01:35 Lab Results 01/28/18 01/28/18 01/28/18 Range/Units 01:27 01:35 01:35 WBC 7.1 (3.8-10.6) k/uL RBC 4.13 L (4.30-5.90) m/uL Hgb 11.9 L (13.0-17.5) gm/dL Hct 35.2 L (39.0-53.0) % MCV 85.3 (80.0-100.0) fL MCH 28.8 (25.0-35.0) pg MCHC 33.8 (31.0-37.0) g/dL RDW 12.8 (11.5-15.5) % Plt Count 224 (150-450) k/uL Neutrophils % 71 % Lymphocytes % 19 % Monocytes % 7 % Eosinophils % 1 % Basophils % 1 % Neutrophils # 5.0 (1.3-7.7) k/uL Lymphocytes # 1.4 (1.0-4.8) k/uL Monocytes # 0.5 (0-1.0) k/uL Eosinophils # 0.1 (0-0.7) k/uL Basophils # 0.1 (0-0.2) k/uL Sodium 139 (137-145) mmol/L Potassium 4.5 (3.5-5.1) mmol/L Chloride 100 (98-107) mmol/L Carbon Dioxide 25 (22-30) mmol/L Anion Gap 14 mmol/L BUN 25 H (9-20) mg/dL Creatinine 1.20 (0.66-1.25) mg/dL Est GFR (CKD-EPI)AfAm 67 (>60 ml/min/1.73 sqM) Est GFR (CKD-EPI)NonAf 58 (>60 ml/min/1.73 sqM) Glucose 193 H (74-99) mg/dL POC Glucose (mg/dL) 189 H (75-99) mg/dL POC Glu Jordan Worker ID Evangelista Ma Calcium 9.7 (8.4-10.2) mg/dL Urine Color Urine Appearance (Clear) Urine pH (5.0-8.0) Ur Specific [place] (1.001-1.035) Urine Protein (Negative) Urine Glucose (UA) (Negative) Urine Ketones (Negative) Urine Blood (Negative) Urine Nitrite (Negative) Urine Bilirubin (Negative) Urine Urobilinogen (<2.0) mg/dL Ur Leukocyte Esterase (Negative) Urine RBC (0-5) /hpf Urine WBC (0-5) /hpf Ur Squamous Epith Cells (0-4) /hpf Urine Bacteria (None) /hpf Urine Mucus (None) /hpf Urine Opiates Screen (NotDetected) Ur Oxycodone Screen (NotDetected) Urine Methadone Screen (NotDetected) Ur Propoxyphene Screen (NotDetected) Ur Barbiturates Screen (NotDetected) U Tricyclic Antidepress (NotDetected) Ur Phencyclidine Scrn (NotDetected) Ur Amphetamines Screen (NotDetected) U Methamphetamines Scrn (NotDetected) U Benzodiazepines Scrn (NotDetected) Urine Cocaine Screen (NotDetected) U Marijuana (THC) Screen (NotDetected) 01/28/18 Range/Units 01:35 WBC (3.8-10.6) k/uL RBC (4.30-5.90) m/uL Hgb (13.0-17.5) gm/dL Hct (39.0-53.0) % MCV (80.0-100.0) fL MCH (25.0-35.0) pg MCHC (31.0-37.0) g/dL RDW (11.5-15.5) % Plt Count (150-450) k/uL Neutrophils % % Lymphocytes % % Monocytes % % Eosinophils % % Basophils % % Neutrophils # (1.3-7.7) k/uL Lymphocytes # (1.0-4.8) k/uL Monocytes # (0-1.0) k/uL Eosinophils # (0-0.7) k/uL Basophils # (0-0.2) k/uL Sodium (137-145) mmol/L Potassium (3.5-5.1) mmol/L Chloride (98-107) mmol/L Carbon Dioxide (22-30) mmol/L Anion Gap mmol/L BUN (9-20) mg/dL Creatinine (0.66-1.25) mg/dL Est GFR (CKD-EPI)AfAm (>60 ml/min/1.73 sqM) Est GFR (CKD-EPI)NonAf (>60 ml/min/1.73 sqM) Glucose (74-99) mg/dL POC Glucose (mg/dL) (75-99) mg/dL POC Glu Jordan Worker ID Calcium (8.4-10.2) mg/dL Urine Color Yellow Urine Appearance Clear (Clear) Urine pH 6.5 (5.0-8.0) Ur Specific [place] 1.020 (1.001-1.035) Urine Protein Trace H (Negative) Urine Glucose (UA) 4+ H (Negative) Urine Ketones Negative (Negative) Urine Blood Negative (Negative) Urine Nitrite Negative (Negative) Urine Bilirubin Negative (Negative) Urine Urobilinogen <2.0 (<2.0) mg/dL Ur Leukocyte Esterase Small H (Negative) Urine RBC 2 (0-5) /hpf Urine WBC 8 H (0-5) /hpf Ur Squamous Epith Cells 1 (0-4) /hpf Urine Bacteria Rare H (None) /hpf Urine Mucus Rare H (None) /hpf Urine Opiates Screen Not Detected (NotDetected) Ur Oxycodone Screen Not Detected (NotDetected) Urine Methadone Screen Not Detected (NotDetected) Ur Propoxyphene Screen Not Detected (NotDetected) Ur Barbiturates Screen Not Detected (NotDetected) U Tricyclic Antidepress Not Detected (NotDetected) Ur Phencyclidine Scrn Not Detected (NotDetected) Ur Amphetamines Screen Not Detected (NotDetected) U Methamphetamines Scrn Not Detected (NotDetected) U Benzodiazepines Scrn Not Detected (NotDetected) Urine Cocaine Screen Not Detected (NotDetected) U Marijuana (THC) Screen Not Detected (NotDetected) - EKG Data EKG Comments: 1:31:31. Normal sinus rhythm. Inferior infarct, age undetermined. Ventricular 80 bpm, UT interval 146, QRS duration 80, QT/QTC 378/435. No evidence of ST segment elevation or depression. Disposition Clinical Impression: Dementia with behavioral disturbance Disposition: ADMITTED IP TO THIS HOSP Condition: Stable Is patient prescribed a controlled substance at d/c from ED?: No Referrals: Franco Tracey DO [Primary Care Provider] - 1-2 days
[2018-01-28 02:05] LABS: Basophils # (A) 0.1 k/uL (0-0.2); Basophils % (A) 1 %; Eosinophils # (A) 0.1 k/uL (0-0.7); Eosinophils % (A) 1 %; HCT 35.2 % (39.0-53.0); HGB 11.9 gm/dL (13.0-17.5); Lymphocytes # (A) 1.4 k/uL (1.0-4.8); Lymphocytes % (A) 19 %; MCH 28.8 pg (25.0-35.0); MCHC 33.8 g/dL (31.0-37.0); MCV 85.3 fL (80.0-100.0); Mean Platelet Volume 7.8; Monocytes # (A) 0.5 k/uL (0-1.0); Monocytes % (A) 7 %; Neutrophils % (A) 71 %; Platelet Count 224 k/uL (150-450); RBC 4.13 m/uL (4.30-5.90); RDW 12.8 % (11.5-15.5); WBC 7.1 k/uL (3.8-10.6)
[2018-01-28 02:20] LABS: Calcium 9.7 mg/dL (8.4-10.2); Potassium 4.5 mmol/L (3.5-5.1)
[2018-01-28 02:24] LABS: Appearance,Urine Clear (Clear); Bacteria,Urine Rare /hpf; Bilirubin,Urine Negative (Negative); Blood,Urine Negative (Negative); Color,Urine Yellow; Glucose,Urine (UA) 4+ (Negative); Ketones,Urine Negative (Negative); Leukocyte Esterase,Urine Small (Negative); Mucus,Urine Rare /hpf; Nitrite,Urine Negative (Negative); PH, Urine 6.5 (5.0-8.0); Protein,Urine Trace (Negative); RBC,Urine 2 /hpf (0-5); Squamous Epithelial Cell,Urine 1 /hpf (0-4); Urobilinogen,Urine <2.0 mg/dL (<2.0); WBC,Urine 8 /hpf (0-5)
[2018-01-28] MEDS ORDERED: INSULIN ASPART 100 UNIT/ML 1 ML 10 ML VIAL SQ ONE ×2 (02:34→21:19)
[2018-01-28] MEDS ORDERED: SODIUM CHLORIDE 0.9% 500 ML IV STA (02:36)
[2018-01-28 02:45] LABS: Amphetamine Screen,Urine Not Detected (NotDetected); Barbiturate Screen,Urine Not Detected (NotDetected); Benzodiazepines Screen,Urine Not Detected (NotDetected); Cocaine Screen,Urine Not Detected (NotDetected); Methadone Screen, Urine Not Detected (NotDetected); Opiate Screen,Urine Not Detected (NotDetected); Oxycodone Screen, Urine Not Detected (NotDetected); Phencyclidine Screen,Urine Not Detected (NotDetected); Tricyclic Antidepressant,Urine Not Detected (NotDetected); Urn Cannabinoid Scrn Not Detected (NotDetected)
[2018-01-28] MEDS ORDERED: MAG HYDROX/AL HYDROX/SIMETH 30 ML CUP PO PRN (04:43)
[2018-01-28] MEDS ORDERED: LORazepam 1 MG TAB PO PRN (04:43)
[2018-01-28] MEDS ORDERED: MAGNESIUM HYDROXIDE 2,400 MG/10 ML CUP PO PRN (04:43)
[2018-01-28] MEDS ORDERED: LINAGLIPTIN 5 MG TABLET PO SCH (09:00)
[2018-01-28] MEDS ORDERED: FUROSEMIDE 20 MG TAB PO SCH (09:00)
[2018-01-28] MEDS ORDERED: INSULIN DETEMIR 100 UNIT/ML 10 ML VIAL SQ SCH (09:00)
[2018-01-28 09:51] LABS: Valproic Acid (Depakene) 12.9 ug/mL
[2018-01-28] MEDS: DONEPEZIL 10 MG TAB PO SCH (10:07)
[2018-01-28] MEDS: LISINOPRIL 2.5 MG TAB PO SCH (10:08)
[2018-01-28] MEDS: LINAGLIPTIN 5 MG TABLET PO SCH ×2 (10:08→20:10)
[2018-01-28] MEDS: metFORMIN 500 MG TAB PO SCH ×2 (10:08→20:10)
[2018-01-28] MEDS: MEMANTINE 5 MG TAB PO SCH (10:08)
[2018-01-28] MEDS: glipiZIDE 10 MG TAB PO SCH (12:45)
[2018-01-28 13:01] LABS: Glucose,Whole Blood 183 mg/dL (75-99)
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
[2018-01-28 18:01] LABS: Hemoglobin A1C 7.9 % (4.0-6.0)
--- NOTE | 2018-01-28 18:12 | P.CONS ---
History of Present Illness - Reason for Consult Acute renal failure. - History of Present Illness 77-year-old admitted for suicidal and homicidal ideation patient does have history of Alzheimer's dementia. Patient denied any fever chills nausea vomiting. Patient had diarrhea patient does have mild renal dysfunction with creatinine going up to 1.2 patient is on Lasix at home doesn't have any history of congestive heart failure Lasix will be deciding her. Patient does have history of diabetes mellitus hypertension. Patient is on DEJAH inhibitor since it 's only mild decrease in renal function are good and continue DEJAH inhibitor for now. Blood pressure is fairly controlled and stable. Review of Systems REVIEW OF SYSTEMS: CONSTITUTIONAL: No fever, no malaise, no fatigue. HEENT: No recent visual problems or hearing problems. Denied any sore throat. CARDIOVASCULAR: No chest pain, orthopnea, PND, no palpitations, no syncope. PULMONARY: No shortness of breath, no cough, no hemoptysis. GASTROINTESTINAL: No diarrhea, no nausea, no vomiting, no abdominal pain. Normoactive bowel sounds. NEUROLOGICAL: No headaches, no weakness, no numbness. HEMATOLOGICAL: Denies any bleeding or petechiae. GENITOURINARY: Denies any burning micturition, frequency, or urgency. MUSCULOSKELETAL/RHEUMATOLOGICAL: Denies any joint pain, swelling, or any muscle pain. ENDOCRINE: Denies any polyuria or polydipsia. The rest of the 14-point review of systems is negative. Past Medical History Past Medical History: Diabetes Mellitus, Hyperlipidemia, Hypertension, Prostate Disorder History of Any Multi-Drug Resistant Organisms: None Reported Past Surgical History: Appendectomy, Cholecystectomy Past Psychological History: Depression Smoking Status: Former smoker Past Alcohol Use History: None Reported Past Drug Use History: None Reported Medications and Allergies Home Medications Medication Instructions Recorded Confirmed Type Atorvastatin [Lipitor] 80 mg PO HS 12/21/15 01/28/18 History Furosemide 20 mg PO DAILY 12/21/15 01/28/18 History Lisinopril [Zestril] 2.5 mg PO DAILY 12/21/15 01/28/18 History glipiZIDE [Glipizide] 5 mg PO AC-LUNCH 12/21/15 01/28/18 History sitaGLIPtin PHOS/metFORMIN HCL 1 tab PO BID 12/21/15 01/28/18 History [Janumet 50-1,000 mg Tablet] Donepezil HCl [Aricept] 10 mg PO DAILY 12/15/17 01/28/18 History Insulin Glargine [Lantus] 60 unit SQ DAILY 12/15/17 01/28/18 History Divalproex ER [Depakote ER] 250 mg PO HS #30 tab.er.24h 12/24/17 01/28/18 Rx Memantine [Namenda] 5 mg PO DAILY #30 tab 12/24/17 01/28/18 Rx Allergies Allergy/AdvReac Type Severity Reaction Status Date / Time No Known Allergies Allergy Verified 01/28/18 00:29 Physical Exam Vitals: Vital Signs Temp Pulse Pulse Resp BP BP Pulse Ox 01/28/18 05:54 97.3 F L 80 16 127/71 01/28/18 04:18 71 17 133/60 100 01/28/18 00:20 98.2 F 75 20 140/66 98 Intake and Output 01/28/18 01/28/18 01/28/18 06:59 14:59 22:59 Other: Weight 77.111 kg PHYSICAL EXAMINATION: GENERAL: The patient is alert and oriented x2-3, not in any acute distress. Well developed, well nourished. HEENT: Pupils are round and equally reacting to light. EOMI. No scleral icterus. No conjunctival pallor. Normocephalic, atraumatic. No pharyngeal erythema. No thyromegaly. CARDIOVASCULAR: S1 and S2 present. No murmurs, rubs, or gallops. PULMONARY: Chest is clear to auscultation, no wheezing or crackles. ABDOMEN: Soft, nontender, nondistended, normoactive bowel sounds. No palpable organomegaly. MUSCULOSKELETAL: No joint swelling or deformity. EXTREMITIES: No cyanosis, clubbing, or pedal edema. NEUROLOGICAL: Gross neurological examination did not reveal any focal deficits. SKIN: No rashes. Results CBC & Chem 7: 01/28/18 01:35 01/28/18 01:35 Labs: Abnormal Lab Results - Last 24 Hours (Table) 01/28/18 01/28/18 01/28/18 Range/Units 01:27 01:35 01:35 RBC 4.13 L (4.30-5.90) m/uL Hgb 11.9 L (13.0-17.5) gm/dL Hct 35.2 L (39.0-53.0) % BUN 25 H (9-20) mg/dL Glucose 193 H (74-99) mg/dL POC Glucose (mg/dL) 189 H (75-99) mg/dL Urine Protein (Negative) Urine Glucose (UA) (Negative) Ur Leukocyte Esterase (Negative) Urine WBC (0-5) /hpf Urine Bacteria (None) /hpf Urine Mucus (None) /hpf 01/28/18 01/28/18 Range/Units 01:35 12:34 RBC (4.30-5.90) m/uL Hgb (13.0-17.5) gm/dL Hct (39.0-53.0) % BUN (9-20) mg/dL Glucose (74-99) mg/dL POC Glucose (mg/dL) 183 H (75-99) mg/dL Urine Protein Trace H (Negative) Urine Glucose (UA) 4+ H (Negative) Ur Leukocyte Esterase Small H (Negative) Urine WBC 8 H (0-5) /hpf Urine Bacteria Rare H (None) /hpf Urine Mucus Rare H (None) /hpf Assessment and Plan Plan: -Mild acute renal failure: Hold off on Lasix. -Type 2 diabetes mellitus -Hypertension -Alzheimer's dementia with the some behavioral issues. Visual issues are being managed by psychiatry. Patient was resumed on Namenda -Hyperlipidemia continue with statin -Depression Medications and consideration is reviewed appropriate corrections were made will continue to follow on as-needed basis.
[2018-01-28 20:08] LABS: Glucose,Whole Blood 290 mg/dL (75-99)
[2018-01-28] MEDS: ATORVASTATIN 80 MG TAB PO SCH (20:10)
[2018-01-28] MEDS: DIVALPROEX ER 250 MG TAB.ER.24H PO SCH (20:10)
[2018-01-29 00:22] LABS: Glucose,Whole Blood 45 mg/dL (75-99)
[2018-01-29 00:51] LABS: Glucose,Whole Blood 75 mg/dL (75-99)
[2018-01-29 03:53] LABS: Glucose,Whole Blood 209 mg/dL (75-99)
[2018-01-29 06:02] LABS: Glucose,Whole Blood 204 mg/dL (75-99)
[2018-01-29] MEDS: INSULIN ASPART 100 UNIT/ML 1 ML 10 ML VIAL SQ SCH ×4 (08:00→20:17)
[2018-01-29] MEDS: metFORMIN 500 MG TAB PO SCH ×2 (09:07→20:19)
[2018-01-29] MEDS: LINAGLIPTIN 5 MG TABLET PO SCH ×2 (09:07→20:18)
[2018-01-29] MEDS: INSULIN DETEMIR 100 UNIT/ML 10 ML VIAL SQ SCH (09:07)
[2018-01-29] MEDS: LISINOPRIL 2.5 MG TAB PO SCH (09:07)
[2018-01-29] MEDS: DONEPEZIL 10 MG TAB PO SCH (09:07)
[2018-01-29] MEDS: MEMANTINE 5 MG TAB PO SCH (09:07)
[2018-01-29 12:18] LABS: Glucose,Whole Blood 194 mg/dL (75-99)
[2018-01-29] MEDS: glipiZIDE 10 MG TAB PO SCH (13:13)
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
[2018-01-29 17:23] LABS: Glucose,Whole Blood 106 mg/dL (75-99)
[2018-01-29 20:17] LABS: Glucose,Whole Blood 224 mg/dL (75-99)
[2018-01-29] MEDS: ATORVASTATIN 80 MG TAB PO SCH (20:18)
[2018-01-29] MEDS: DIVALPROEX ER 250 MG TAB.ER.24H PO SCH (20:18)
[2018-01-29] MEDS: ACETAMINOPHEN TAB 325 MG TAB PO PRN (22:44)
[2018-01-30 06:05] LABS: Glucose,Whole Blood 117 mg/dL (75-99)
[2018-01-30] MEDS: INSULIN DETEMIR 100 UNIT/ML 10 ML VIAL SQ SCH (08:59)
[2018-01-30] MEDS: INSULIN ASPART 100 UNIT/ML 1 ML 10 ML VIAL SQ SCH ×4 (08:59→21:12)
[2018-01-30] MEDS: MEMANTINE 5 MG TAB PO SCH (09:17)
[2018-01-30] MEDS: LINAGLIPTIN 5 MG TABLET PO SCH ×2 (09:17→21:09)
[2018-01-30] MEDS: metFORMIN 500 MG TAB PO SCH ×2 (09:17→21:08)
[2018-01-30] MEDS: LISINOPRIL 2.5 MG TAB PO SCH (09:17)
[2018-01-30] MEDS: DONEPEZIL 10 MG TAB PO SCH (09:17)
[2018-01-30] MEDS: glipiZIDE 10 MG TAB PO SCH (12:52)
[2018-01-30] MEDS: ACETAMINOPHEN TAB 325 MG TAB PO PRN (16:21)
--- NOTE | 2018-01-30 16:22 | P.PN ---
Subjective Progress Note Date: 01/30/18 Principal diagnosis: Probable major neurocognitive disorder due to Alzheimer's type with behavioral disturbances I reviewed the medical record, interviewed the patient and discussed his treatment and treatment plan during team meeting. He remains angry regarding this hospitalization. He used foul language when talking about his family. He has no insight or understanding of his cognitive impairment. During the interview he became frustrated and several time while talking about his family stated "why don't you just line me up and shoot me." Objective - Vital Signs Vital signs: Vital Signs Temp 98.3 F 01/30/18 06:10 Pulse 81 01/30/18 09:19 Resp 18 01/30/18 09:19 BP 132/61 01/30/18 09:19 Pulse Ox 100 01/28/18 04:18 - Psychiatric Psychiatric Comment(s): He presented as a casually dressed casually groomed elderly male who is irritable and angry. He made eye contact and appeared to attend to the interview. He was alert and oriented to person and place. He was at times restless but displayed no abnormal movements. His speech was spontaneous with increased volume when talking about his family. His affect was labile, angry and irritable. He expressed suicidal thoughts but denied plan or intent. He feels helpless and hopeless. He did not express clear paranoid ideation or delusional thoughts. His thinking was concrete and associations were not logical. He did not appear to responding to internal stimuli. - Labs CBC & Chem 7: 01/28/18 01:35 01/28/18 01:35 Labs: Abnormal Lab Results - Last 24 Hours (Table) 01/29/18 01/29/18 01/30/18 Range/Units 17:21 20:11 06:00 POC Glucose (mg/dL) 106 H 224 H 117 H (75-99) mg/dL Assessment and Plan Assessment: He remains angry regarding this hospitalization. He has no insight or understanding of his illness, cognitive limitations or impairment in judgment. (1) Suicidal ideation Current Visit: Yes Status: Acute Code(s): R45.851 - SUICIDAL IDEATIONS SNOMED Code(s): 6998762 (2) Homicidal ideation Current Visit: Yes Status: Acute Code(s): R45.850 - HOMICIDAL IDEATIONS SNOMED Code(s): 387137948 (3) Probable major neurocognitive disorder due to Alzheimer's disease with behavioral disturbance Current Visit: No Status: Chronic Priority: High Code(s): G30.9 - ALZHEIMER'S DISEASE, UNSPECIFIED; F02.81 - DEMENTIA IN OTH DISEASES CLASSD ELSWHR W BEHAVIORAL DISTURB SNOMED Code(s): 556372733 Plan: Continue inpatient hospitalization. Safety precautions. Probate hearing scheduled for 01/31/2018. His and son obtain guardianship on 01/28/2018. Continue psychotropic medications-Depakote ER 250 mg at bedtime, Aricept 10 mg daily and Namenda 5 mg daily. Continue other medications as recommended by the beauty sales consultant. Encourage participation in therapeutic groups and activities as tolerated. Evaluate clinical status response to treatment on a daily basis. receiving worker will coordinate discharge and aftercare with his family.
[2018-01-30 17:47] LABS: Glucose,Whole Blood 182 mg/dL (75-99)
[2018-01-30 20:21] LABS: Glucose,Whole Blood 147 mg/dL (75-99)
[2018-01-30] MEDS: ATORVASTATIN 80 MG TAB PO SCH (21:08)
[2018-01-30] MEDS: DIVALPROEX ER 250 MG TAB.ER.24H PO SCH (21:09)
[2018-01-31 06:21] LABS: Glucose,Whole Blood 150 mg/dL (75-99)
[2018-01-31] MEDS: INSULIN ASPART 100 UNIT/ML 1 ML 10 ML VIAL SQ SCH ×4 (08:01→20:09)
[2018-01-31] MEDS: metFORMIN 500 MG TAB PO SCH ×2 (08:07→20:07)
[2018-01-31] MEDS: DONEPEZIL 10 MG TAB PO SCH (08:07)
[2018-01-31] MEDS: INSULIN DETEMIR 100 UNIT/ML 10 ML VIAL SQ SCH (08:07)
[2018-01-31] MEDS: MEMANTINE 5 MG TAB PO SCH ×2 (08:07→20:08)
[2018-01-31] MEDS: LISINOPRIL 2.5 MG TAB PO SCH (08:08)
[2018-01-31] MEDS: LINAGLIPTIN 5 MG TABLET PO SCH ×2 (08:08→20:06)
[2018-01-31 12:33] LABS: Glucose,Whole Blood 194 mg/dL (75-99)
[2018-01-31] MEDS: glipiZIDE 10 MG TAB PO SCH (12:45)
--- NOTE | 2018-01-31 16:33 | P.PN ---
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 He wouldn't speak to me today. He made eye contact but would not exchange greeting. Objective - Vital Signs Vital signs: Vital Signs Temp 98.3 F 01/31/18 06:53 Pulse 76 01/31/18 08:10 Resp 18 01/31/18 08:10 BP 134/60 01/31/18 08:10 Pulse Ox 96 01/31/18 06:53 - Psychiatric Psychiatric Comment(s): He presented as a casually dressed casually groomed elderly male who is irritable and angry. Also time he was sitting alone in his room or in a chair in the hallway. He appears angry and internally preoccupied. He made eye contact but would not engage in a conversation or answer questions. He was alert. His speech was not spontaneous. His affect was labile, angry and irritable. He did not express suicidal thoughts. He did not express clear paranoid ideation or delusional thoughts. His thinking was concrete and associations were not logical. He did not appear to responding to internal stimuli. - Labs CBC & Chem 7: 01/28/18 01:35 01/28/18 01:35 Labs: Abnormal Lab Results - Last 24 Hours (Table) 01/30/18 01/30/18 01/31/18 Range/Units 17:42 20:19 06:06 POC Glucose (mg/dL) 182 H 147 H 150 H (75-99) mg/dL 01/31/18 Range/Units 12:29 POC Glucose (mg/dL) 194 H (75-99) mg/dL Assessment and Plan Assessment: He remains angry regarding this hospitalization. He has no insight or understanding of his illness, cognitive limitations or impairment in judgment. 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 Safety precautions. Probate hearing deferred. His and son obtain guardianship on 01/28/2018. Continue psychotropic medications-Depakote ER 250 mg at bedtime, Aricept 10 mg daily but increase Namenda 5 mg twice a day. Continue other medications as recommended by the information services consultant. Encourage participation in therapeutic groups and activities as tolerated. Evaluate clinical status response to treatment on a daily basis. stage set up worker will coordinate discharge and aftercare with his family.
[2018-01-31 17:58] LABS: Glucose,Whole Blood 125 mg/dL (75-99)
[2018-01-31 19:08] LABS: Urine Alcohol Negative (Negative); Urine Barbiturate Negative (Negative); Urine Cocaine Negative (Negative); Urine Methadone Negative (Negative); Urine Opiates Negative (Negative); Urine Phencyclidine Negative (Negative)
[2018-01-31] MEDS: ATORVASTATIN 80 MG TAB PO SCH (20:06)
[2018-01-31] MEDS: DIVALPROEX ER 250 MG TAB.ER.24H PO SCH (20:07)
[2018-01-31 20:14] LABS: Glucose,Whole Blood 194 mg/dL (75-99)
[2018-01-31] MEDS: ACETAMINOPHEN TAB 325 MG TAB PO PRN (22:42)
[2018-02-01 06:06] LABS: Glucose,Whole Blood 131 mg/dL (75-99)
[2018-02-01] MEDS: INSULIN DETEMIR 100 UNIT/ML 10 ML VIAL SQ SCH (08:37)
[2018-02-01] MEDS: MEMANTINE 5 MG TAB PO SCH ×2 (08:37→20:18)
[2018-02-01] MEDS: LISINOPRIL 2.5 MG TAB PO SCH (08:37)
[2018-02-01] MEDS: INSULIN ASPART 100 UNIT/ML 1 ML 10 ML VIAL SQ SCH ×4 (08:37→20:17)
[2018-02-01] MEDS: metFORMIN 500 MG TAB PO SCH ×2 (08:37→20:18)
[2018-02-01] MEDS: DONEPEZIL 10 MG TAB PO SCH (08:37)
[2018-02-01] MEDS: LINAGLIPTIN 5 MG TABLET PO SCH ×2 (08:38→20:19)
[2018-02-01] MEDS: glipiZIDE 10 MG TAB PO SCH (12:24)
[2018-02-01] MEDS: OLANZapine 5 MG TAB PO SCH ×2 (12:24→20:19)
[2018-02-01 12:31] LABS: Glucose,Whole Blood 235 mg/dL (75-99)
[2018-02-01 17:36] LABS: Glucose,Whole Blood 166 mg/dL (75-99)
--- NOTE | 2018-02-01 18:19 | PN ---
PROGRESS NOTE DATE OF SERVICE: 02/01/2018 CHIEF COMPLAINT: The patient has had onset of dementia with increasingly disorganized and impulsive behavior. He recently attempted to drive to [place]. He made threats to kill himself with his car. INTERVAL HISTORY: Patient has been continuing to struggle, he has quite a negative outlook. He continues to complain that his family are doing nefarious things to harm him. He says that they are simply trying to take all his money and abandon him. He feels his family is just trying to "put me away." He continues with a lot of anger about circumstances of his coming into the hospital when I am in an effort to review some of the things that were going on, he had difficulty recalling details. His orientation was limited. He expressed paranoid thoughts about things going on around him. When I asked him about his medications, he was not able to give any information about any aspects of his health issues or medications. He has been taking his medications. MENTAL STATUS: Patient gave fair eye contact. Psychomotor activity was restless. He answered questions with responses that were somewhat tangential. He had an intense affect. He was quite dysphoric. His mood was depressed. He was significantly distressed. He had paranoid thinking. When I attempted to do a basic cognitive exam, he did make an effort to answer any questions. ASSESSMENT AND PLAN: I will continue the current diagnosis and treatment plan. Will continue to engage the patient in individual and group therapeutic activities. Will continue the patient on Depakote 250 mg a day. He is also on Aricept and Namenda. I had a telephone call to Dr. Ivy who agreed with a plan of starting an antipsychotic for paranoia related to mood disorder as well as dementia. He will be started on Zyprexa 5 mg twice a day. I made effort to review issues regarding his admission and treatment plan. We will continue to focus on stabilization and discharge planning. I reviewed medical records and reviewed progress with staff. The patient was interviewed. KARTHIKEYAN / ANDRIA: [id number] /
[2018-02-01 20:10] LABS: Glucose,Whole Blood 200 mg/dL (75-99)
[2018-02-01] MEDS: ATORVASTATIN 80 MG TAB PO SCH (20:18)
[2018-02-01] MEDS: DIVALPROEX ER 250 MG TAB.ER.24H PO SCH (20:20)
[2018-02-02 07:00] LABS: Glucose,Whole Blood 110 mg/dL (75-99)
[2018-02-02] MEDS: INSULIN ASPART 100 UNIT/ML 1 ML 10 ML VIAL SQ SCH ×4 (08:59→20:18)
[2018-02-02] MEDS: INSULIN DETEMIR 100 UNIT/ML 10 ML VIAL SQ SCH (09:19)
[2018-02-02] MEDS: metFORMIN 500 MG TAB PO SCH ×2 (09:20→20:15)
[2018-02-02] MEDS: LISINOPRIL 2.5 MG TAB PO SCH (09:20)
[2018-02-02] MEDS: DONEPEZIL 10 MG TAB PO SCH (09:21)
[2018-02-02] MEDS: MEMANTINE 5 MG TAB PO SCH ×2 (09:21→20:16)
[2018-02-02] MEDS: LINAGLIPTIN 5 MG TABLET PO SCH ×2 (09:21→20:15)
[2018-02-02] MEDS: OLANZapine 5 MG TAB PO SCH ×2 (09:31→20:16)
[2018-02-02 12:56] LABS: Glucose,Whole Blood 241 mg/dL (75-99)
[2018-02-02] MEDS: glipiZIDE 10 MG TAB PO SCH (13:15)
[2018-02-02 17:35] LABS: Glucose,Whole Blood 113 mg/dL (75-99)
--- NOTE | 2018-02-02 17:56 | PN ---
PROGRESS NOTE DATE OF SERVICE: 02/02/2018. CHIEF COMPLAINT: The patient has had onset of dementia with increasingly disorganized and impulsive behavior. He recently attempted to drive to [place]. He made threats to kill himself with his car. INTERVAL HISTORY: Patient has been doing fair. He had a quiet evening last night. He slept 5 and 0.5 hours. He has been up. Staff seem to note that he is a little more irritable and negative today. He has been intrusive, going into another person's room and making efforts to go through things in the room. He does respond to staff support and will leave the room when requested. He has seemed to be a little more quiet, withdrawn mood today. When I saw him, he did not have much to say. He made a few comments about feeling he was okay. He did not have any complaints or concerns. Staff have noted that he has shown clear signs of cognitive difficulties and memory limitations. He tolerates his psychotropic medications. MENTAL STATUS: Patient gave fair eye contact. Psychomotor activity was slow. Speech was monotone. He answered questions with brief responses. He did not say much. His affect was blunted. His mood reserved. It was difficult to say if he was distressed in any way. ASSESSMENT: I will continue current diagnosis and treatment plan. I will continue psychotropic medications the same. We will continue to focus on stabilization and discharge planning. KARTHIKEYAN / ANDRIA: [id number] /
[2018-02-02] MEDS: DIVALPROEX ER 250 MG TAB.ER.24H PO SCH (20:16)
[2018-02-02] MEDS: ATORVASTATIN 80 MG TAB PO SCH (20:16)
[2018-02-02 20:19] LABS: Glucose,Whole Blood 179 mg/dL (75-99)
[2018-02-03 07:20] LABS: Glucose,Whole Blood 132 mg/dL (75-99)
[2018-02-03] MEDS: INSULIN ASPART 100 UNIT/ML 1 ML 10 ML VIAL SQ SCH ×4 (08:19→21:36)
[2018-02-03] MEDS: INSULIN DETEMIR 100 UNIT/ML 10 ML VIAL SQ SCH (08:21)
[2018-02-03] MEDS: DONEPEZIL 10 MG TAB PO SCH (09:37)
[2018-02-03] MEDS: LINAGLIPTIN 5 MG TABLET PO SCH ×3 (09:37→21:46)
[2018-02-03] MEDS: LISINOPRIL 2.5 MG TAB PO SCH (09:38)
[2018-02-03] MEDS: MEMANTINE 5 MG TAB PO SCH ×2 (09:38→21:28)
[2018-02-03] MEDS: metFORMIN 500 MG TAB PO SCH ×3 (09:39→21:46)
[2018-02-03] MEDS: OLANZapine 5 MG TAB PO SCH ×2 (09:39→21:28)
[2018-02-03 12:42] LABS: Glucose,Whole Blood 124 mg/dL (75-99)
[2018-02-03] MEDS: glipiZIDE 10 MG TAB PO SCH (13:28)
--- NOTE | 2018-02-03 13:48 | P.PN ---
Progress Note - Text Progress Note Date: 02/03/18 Interval History: Patient is a 77-year-old male who was admitted after he had been discharged earlier this year and was refusing to take his medications, threatening to kill himself and other family members as well as having left in his car to drive self. Patient states that he doesn't like it here and doesn't understand why he is here and blames his eldest son for putting him here. He states that he and his argued and he said he was going to leave and she said goodbye. He states that he decided he was going to drive [place] and states that he ended up in [place] when he decided to turn around and when checking into a motel states that the police came to his door. Patient is unable to tell me what medications he was taking in the past and states that he took his medications at home including his insulin. Patient states that he is unaware that he was diagnosed with a dementia in the past. Patient had been admitted here in November, states he is unsure of why he was admitted at that time. Patient states he doesn't want to wait for his hearing and doesn't understand why he is here. Mental Status: Appearance/Attitude: Patient is appropriately dressed, makes eye contact and is cooperative Behavior: Patient does not exhibit any psychomotor agitation or retardation but is easily irritated during the interview Speech/Language: Patient's speech is spontaneous, normal volume and rhythm and he is coherent Thought Process: Patient attempts to answer questions, his responses are vague and not goal directed and when he responds to the same question on different occasions his answers are different is no evidence of loose association or flight of ideas Thought Content: Patient denies any auditory or visual hallucinations and no delusions were elicited the patient is very upset with his son who he blames for putting him here and states that he also gets upset with his and DrGalindo and then stated that he wasn't taking his medications due to that. Patient denies that he was ever diagnosed with a dementia and then stated that his keeps telling him he has Alzheimer's disease. Patient denies that he refused medications in the past, denies that he threatened to hurt anyone. Patient is unable to give goal-directed responses, his responses are vague with little detail and his responses change during the course of the interview. Patient denies any sleep or appetite disturbance. Suicidal/Homicidal Ideation: Patient denies any current suicidal or homicidal ideation Sensorium/Cognition: Patient is alert and oriented to person, month but not year , that he is in the hospital and the name of the city. Patient's recent and remote memory were not formally tested but the patient has obvious difficulties with both recent and remote memory. Please see prior evaluation for more formal cognitive testing results which revealed that the patient had a neurocognitive disorder. Mood/Affect: Patient's mood is irritable, suspicious and his affect is appropriate to his mood Insight/Judgment: Patient's insight and judgment are impaired Assessment: Patient presents and complains that he doesn't know why he is in the hospital, states that he is upset with his oldest son who he feels is the reason he is here, he states that he did drive off [place] go [place] because he and his got into an argument however he doesn't understand why he is in the hospital and on one occasion stated that he was taking his medications and on another occasion stated that he had been refusing his medications. Patient states that his tells him he is been diagnosed with Alzheimer's but he states he doesn't know that he has or recall that he ever was told that he had this. Patient is not attending groups or activities. Plan: Patient currently is being treated with Aricept, Namenda and Zyprexa 5 mg twice a day to target his agitation and irritability is also continued on Depakote 250 mg at bedtime. Patient is awaiting a hearing on February 12 and his son and are currently his guardians which was obtained on January 28. Patient continues to require hospitalization and plans for discharge have been discussed with his and recommendations have been made. Patient will require supervised living situation upon discharge.
[2018-02-03 17:31] LABS: Glucose,Whole Blood 132 mg/dL (75-99)
[2018-02-03 20:38] LABS: Glucose,Whole Blood 196 mg/dL (75-99)
[2018-02-03] MEDS: DIVALPROEX ER 250 MG TAB.ER.24H PO SCH (21:28)
[2018-02-03] MEDS: ATORVASTATIN 80 MG TAB PO SCH (21:28)
[2018-02-04 06:40] LABS: Glucose,Whole Blood 93 mg/dL (75-99)
[2018-02-04] MEDS: INSULIN ASPART 100 UNIT/ML 1 ML 10 ML VIAL SQ SCH ×4 (08:05→20:19)
[2018-02-04] MEDS: DONEPEZIL 10 MG TAB PO SCH (09:13)
[2018-02-04] MEDS: LINAGLIPTIN 5 MG TABLET PO SCH ×2 (09:13→20:20)
[2018-02-04] MEDS: OLANZapine 5 MG TAB PO SCH ×2 (09:13→20:20)
[2018-02-04] MEDS: LISINOPRIL 2.5 MG TAB PO SCH ×2 (09:13→09:15)
[2018-02-04] MEDS: MEMANTINE 5 MG TAB PO SCH ×2 (09:13→20:20)
[2018-02-04] MEDS: INSULIN DETEMIR 100 UNIT/ML 10 ML VIAL SQ SCH (09:13)
[2018-02-04] MEDS: metFORMIN 500 MG TAB PO SCH ×2 (09:13→20:20)
--- NOTE | 2018-02-04 11:50 | P.PN ---
Progress Note - Text Progress Note Date: 02/04/18 Interval History: Patient is a 77-year-old male who was approached today and he refused to speak with me stating he had nothing to say to me. Mental Status: Patient refused to speak with me Assessment: Patient was continued on Depakote extended release and Zyprexa 5 mg twice a day and slept 6 hours last night. Patient did become agitated yesterday with another patient and tried to kick him. Patient refused to speak with me today telling me that he had nothing to say to me. Plan: Discharge planning was discussed in the team treatment meeting and his just contact the facility today. Patient will continue on Depakote extended release 250 mg at bedtime and Zyprexa 5 mg twice a day and his hearing is scheduled for February 12. Patient continues to require hospitalization to further stabilize his mood. We'll continue to work on placement.
[2018-02-04 12:28] LABS: Glucose,Whole Blood 139 mg/dL (75-99)
[2018-02-04] MEDS: glipiZIDE 10 MG TAB PO SCH (12:49)
[2018-02-04 17:55] LABS: Glucose,Whole Blood 160 mg/dL (75-99)
[2018-02-04 20:02] LABS: Glucose,Whole Blood 189 mg/dL (75-99)
[2018-02-04] MEDS: DIVALPROEX ER 250 MG TAB.ER.24H PO SCH (20:20)
[2018-02-04] MEDS: ATORVASTATIN 80 MG TAB PO SCH (20:20)
[2018-02-05 06:35] LABS: Glucose,Whole Blood 121 mg/dL (75-99)
[2018-02-05] MEDS: INSULIN ASPART 100 UNIT/ML 1 ML 10 ML VIAL SQ SCH ×4 (08:07→20:21)
[2018-02-05] MEDS: INSULIN DETEMIR 100 UNIT/ML 10 ML VIAL SQ SCH (08:54)
[2018-02-05] MEDS: metFORMIN 500 MG TAB PO SCH ×2 (09:04→20:19)
[2018-02-05] MEDS: DONEPEZIL 10 MG TAB PO SCH (09:04)
[2018-02-05] MEDS: OLANZapine 5 MG TAB PO SCH ×2 (09:04→20:19)
[2018-02-05] MEDS: MEMANTINE 5 MG TAB PO SCH ×2 (09:04→20:19)
[2018-02-05] MEDS: LINAGLIPTIN 5 MG TABLET PO SCH ×2 (09:04→20:19)
[2018-02-05] MEDS: LISINOPRIL 2.5 MG TAB PO SCH (09:05)
--- NOTE | 2018-02-05 12:22 | P.PN ---
Progress Note - Text Progress Note Date: 02/05/18 Interval History: Patient is a 77-year-old male who was refusing to come to the interview room with me and was seen in the parker. He denied any thoughts of hurting himself or others and states that he is refusing to go to groups because he doesn't want to go. He states that he has no idea why he is here and denies that he was ever assaultive or angry with anyone. Patient states that he is eating well. Mental Status: Appearance/Attitude: Patient is appropriately dressed, makes intermittent eye contact and is superficially cooperative. Patient refused to come to the interview room and would answer questions with me in the parker. Behavior: Patient has not exhibited any psychomotor agitation or retardation Speech/Language: Patient's speech is of normal volume and rhythm, he is not spontaneous answering questions with very brief responses. Thought Process: Patient's responses to questions are limited to 3-4 word sentences he does not volunteer any information and there is poverty of thought. Thought Content: Patient denies auditory or visual hallucinations and no delusions or paranoid ideation or elicited. Patient refuses to attend groups stating he doesn't want to, states he still does not understand why he is here and denies that he ever was angry or assaultive toward anyone in the past. Patient states he is sleeping and slept 6 hours last night and states that his appetite is good. Suicidal/Homicidal Ideation: Patient denies any current suicidal or homicidal ideation Sensorium/Cognition: Patient is alert and oriented to person further testing was not done as the patient refuses to answer the questions Mood/Affect: Patient's mood remains restricted and his affect blunted Insight/Judgment: Patient's insight and judgment are limited Assessment: Patient is not attending groups or activities however he has been taking his medications. He refuses to attend groups stating that he doesn't want to attend him and states that he is not going to the hearing next week either. Patient refused to come to the interview room with me in his responses to questions are very brief answers, he does not volunteer any information and does not spontaneously begin conversation. In team meeting it was discussed that his had contacted to the placements that were hurt her and she stated that they can't afford them. His son was contacted who stated that he has a list of adult foster care homes and will find one for his father. Plan: Patient will continue on Zyprexa 5 mg twice a day to target his behavior, he continues on his medications for dementia on Namenda and Aricept. Patient requires placement at the time of discharge. Patient's hearing was scheduled for February 12 at this time the patient continues to require hospitalization.
[2018-02-05 12:41] LABS: Glucose,Whole Blood 207 mg/dL (75-99)
[2018-02-05] MEDS: glipiZIDE 10 MG TAB PO SCH (12:43)
[2018-02-05 17:32] LABS: Glucose,Whole Blood 142 mg/dL (75-99)
[2018-02-05 20:10] LABS: Glucose,Whole Blood 185 mg/dL (75-99)
[2018-02-05] MEDS: DIVALPROEX ER 250 MG TAB.ER.24H PO SCH (20:19)
[2018-02-05] MEDS: ATORVASTATIN 80 MG TAB PO SCH (20:19)
[2018-02-06 05:55] LABS: Glucose,Whole Blood 124 mg/dL (75-99)
[2018-02-06] MEDS: INSULIN ASPART 100 UNIT/ML 1 ML 10 ML VIAL SQ SCH ×4 (07:59→20:14)
[2018-02-06] MEDS: INSULIN DETEMIR 100 UNIT/ML 10 ML VIAL SQ SCH (08:40)
[2018-02-06] MEDS: LINAGLIPTIN 5 MG TABLET PO SCH ×2 (08:41→20:12)
[2018-02-06] MEDS: metFORMIN 500 MG TAB PO SCH ×2 (08:41→20:12)
[2018-02-06] MEDS: OLANZapine 5 MG TAB PO SCH ×2 (08:41→20:12)
[2018-02-06] MEDS: LISINOPRIL 2.5 MG TAB PO SCH (08:41)
[2018-02-06] MEDS: DONEPEZIL 10 MG TAB PO SCH (08:41)
[2018-02-06] MEDS: MEMANTINE 5 MG TAB PO SCH ×2 (08:41→20:12)
[2018-02-06 12:19] LABS: Glucose,Whole Blood 173 mg/dL (75-99)
[2018-02-06] MEDS: glipiZIDE 10 MG TAB PO SCH (13:39)
--- NOTE | 2018-02-06 15:50 | P.PN ---
Progress Note - Text Progress Note Date: 02/06/18 Interval History: Patient is a 77-year-old male who was seen today again in the hallways the patient would not come with me to the interview room. Patient stated that he was sleeping fine, eating well. Patient again denied that he was feeling suicidal or homicidal. Patient states these been taking his medications. Patient stated he is not attending groups or activities because he does not want to. Patient had no other concerns or complaints at this time. Mental Status: Appearance/Attitude: Patient is neatly dressed, makes intermittent eye contact and was cooperative Behavior: Patient did not exhibit any psychomotor agitation or retardation Speech/Language: Patient is not spontaneous in his speech, he only answers questions in very brief sentences and he speaks in a normal volume and rhythm and is coherent. Thought Process: Patient is goal-directed in his responses although they are very brief wears no evidence of loose association or flight of ideas Thought Content: Patient denied any auditory or visual hallucinations no delusions or paranoid ideation were elicited. Patient states he is eating and sleeping well. Patient reported no other concerns or complaints at this time other than that he wonders why he continues to be in the hospital Suicidal/Homicidal Ideation: Patient denied any current suicidal or homicidal ideation Sensorium/Cognition: Patient is alert and oriented to person, location and during the interview had difficulty finding words for objects and has been diagnosed with a neurocognitive disorder Mood/Affect: Patient's mood is cooperative and his affect is blunted Insight/Judgment: Patient's insight and judgment are limited Assessment: Patient has been cooperative on the unit there've been no episodes of aggressive or assaultive or threatening behavior. He has been compliant taking his medications as requested. Patient has been sleeping and has been eating well. Patient has not been attending groups or activities. In team treatment meeting it was discussed that family stated that they could not find any affordable placement for the patient and aunt suggested the patient living in an apartment with meals on wheels. Later this afternoon social work and staff approached me stating that the patient's had contacted them stating that he had threatened to kill himself last night during a family meeting. Plan: [Patient continue on Depakote 250 mg extended release at night and Zyprexa 5 mg twice a day to target his aggressive behavior and mood. Patient has not had any episodes of aggressive or assaultive behavior on the unit and it was felt that it and for hearing was not required and so the court was contacted and letter sent to rescind the demand for hearing. Patient does require some type of supervised living once he is released from the hospital whether that is in his home or in another facility has yet to be determined in the family continues to be encouraged to find a discharge living situation.
[2018-02-06 17:20] LABS: Glucose,Whole Blood 212 mg/dL (75-99)
[2018-02-06 20:01] LABS: Glucose,Whole Blood 90 mg/dL (75-99)
[2018-02-06] MEDS: DIVALPROEX ER 250 MG TAB.ER.24H PO SCH (20:12)
[2018-02-06] MEDS: ATORVASTATIN 80 MG TAB PO SCH (20:12)
[2018-02-07 06:51] LABS: Glucose,Whole Blood 146 mg/dL (75-99)
[2018-02-07] MEDS: INSULIN ASPART 100 UNIT/ML 1 ML 10 ML VIAL SQ SCH ×4 (07:55→19:51)
[2018-02-07] MEDS: INSULIN DETEMIR 100 UNIT/ML 10 ML VIAL SQ SCH (08:08)
[2018-02-07] MEDS: LISINOPRIL 2.5 MG TAB PO SCH (08:10)
[2018-02-07] MEDS: LINAGLIPTIN 5 MG TABLET PO SCH ×2 (08:10→21:16)
[2018-02-07] MEDS: MEMANTINE 5 MG TAB PO SCH ×2 (08:10→21:16)
[2018-02-07] MEDS: DONEPEZIL 10 MG TAB PO SCH (08:10)
[2018-02-07] MEDS: metFORMIN 500 MG TAB PO SCH ×2 (08:11→21:16)
[2018-02-07] MEDS: OLANZapine 5 MG TAB PO SCH ×2 (08:11→21:16)
[2018-02-07 13:17] LABS: Glucose,Whole Blood 147 mg/dL (75-99)
[2018-02-07] MEDS: glipiZIDE 10 MG TAB PO SCH (13:21)
--- NOTE | 2018-02-07 14:54 | P.PN ---
Progress Note - Text Progress Note Date: 02/07/18 Interval History: Patient is a 77-year-old male who was seen today and he reports that he has been sleeping and eating well. Patient states that he has not been attending groups and does not want to. When I questioned the patient regarding his threatening to kill himself when he met with his on Saturday evening he denied that he made any of those statements stating "why would I kill myself". Patient had no complaints other than to question why he is in the hospital. Mental Status: Appearance/Attitude: Patient is casually dressed, makes good eye contact and was cooperative. Behavior: Patient did not exhibit any psychomotor agitation or retardation. Speech/Language: Patient's speech is in response to questions only, normal volume and rhythm and he is coherent. Thought Process: Patient's responses are goal directed however very brief and non-elaborative is no evidence of loose association or flight of ideas Thought Content: Patient denies any auditory or visual hallucinations there is no evidence that he is responding to internal stimuli. Patient did not exhibit any paranoid or delusional ideation although he is angry with his family for placing him in the hospital. Patient states that he sleeping and eating well. Patient reports he does not want to attend groups and will not do so. Suicidal/Homicidal Ideation: Patient when questioned whether he had made suicidal or homicidal statements to his family stated he had not and stated why would I want to harm myself. Patient states that he is not suicidal or homicidal at this time. Sensorium/Cognition: Patient is alert and oriented to person, situation and continues to have difficulty finding words when he is responding to questions as well as difficulty recalling information patient has been diagnosed with Alzheimer's Mood/Affect: Patient's mood has been less irritable and his affect is blunted Insight/Judgment: Patient's insight and judgment are impaired Assessment: Patient has not shown any aggression or self-harm behavior while on the unit and has been cooperative taking his medications. He has been eating and sleeping well. Patient has not been attending groups and states that he does not wish to. Patient's family has reported that in the meeting with his on Saturday night he voiced the fact that he would kill himself and his son and stated that when they met with him prior to the family meeting today that he again voiced he would kill himself or them. The family meeting was held today with his son Ash, and his , his coguardian as well as social work, Dr. Russo, recipient rights advisor, in the director of the unit and myself and his coguardian, his son Blaze. In this meeting it was discussed with the family that the patient requires supervised placement on discharge as after his last discharge home he became agitated, per the family, he was making threats to hurt himself and family members as well as was not being compliant with his medication. Patient's family reported that they had looked into several placement options but that the costs were too high. Patient 's diagnosis and behavioral issues were discussed with the family as well as his current treatment of both Depakote 250 mg extended release and Zyprexa 5 mg twice a day to target his behavior. Patient's family was encouraged to look at placement options as the patient does require supervision on discharge and his stated that his returning home was not an option. Patient's was given a referral to an [facility] to speak with them and view this facility and will get back with us regarding this. Plan: Patient continues on Depakote 250 mg extended release daily and Zyprexa 5 mg twice a day to target his behavior. Patient continues to verbalize to his family suicidal or threatening statements however on the unit he has been compliant with medication and has not verbalized any threatening behavior, self- harm behavior. Patient's family will continue to look for a supervised placement and advise us when this has been located. Patient requires hospitalization until such placement can be obtained.
[2018-02-07 17:10] LABS: Glucose,Whole Blood 148 mg/dL (75-99)
[2018-02-07 19:52] LABS: Glucose,Whole Blood 144 mg/dL (75-99)
[2018-02-07] MEDS: DIVALPROEX ER 250 MG TAB.ER.24H PO SCH (21:16)
[2018-02-07] MEDS: ATORVASTATIN 80 MG TAB PO SCH (21:16)
[2018-02-08 06:50] LABS: Glucose,Whole Blood 136 mg/dL (75-99)
[2018-02-08] MEDS: INSULIN ASPART 100 UNIT/ML 1 ML 10 ML VIAL SQ SCH ×4 (07:44→19:59)
[2018-02-08] MEDS: INSULIN DETEMIR 100 UNIT/ML 10 ML VIAL SQ SCH (09:07)
[2018-02-08] MEDS: metFORMIN 500 MG TAB PO SCH ×2 (09:08→19:59)
[2018-02-08] MEDS: OLANZapine 5 MG TAB PO SCH ×2 (09:09→19:59)
[2018-02-08] MEDS: LISINOPRIL 2.5 MG TAB PO SCH (09:09)
[2018-02-08] MEDS: DONEPEZIL 10 MG TAB PO SCH (09:09)
[2018-02-08] MEDS: LINAGLIPTIN 5 MG TABLET PO SCH ×2 (09:09→19:59)
[2018-02-08] MEDS: MEMANTINE 5 MG TAB PO SCH ×2 (09:10→19:59)
[2018-02-08 12:45] LABS: Glucose,Whole Blood 182 mg/dL (75-99)
[2018-02-08] MEDS: glipiZIDE 10 MG TAB PO SCH (12:48)
--- NOTE | 2018-02-08 14:44 | P.PN ---
Progress Note - Text Progress Note Date: 02/08/18 Interval history: Patient is seen in [facility] [place] today. He seems to report that he slept well last night and is eating well. He seems to describe his mood as okay. He does not voice any adverse psychotropic medication side effects. Mental status exam: He is alert and cooperative with the interview. He does not show any significant agitation. He is somewhat hard of hearing. He seems to describe his mood as okay. He denies any thoughts of harm to self or others. He has not verbalize any hallucinations. Plan: Patient will be maintained on current psychotropic medications. We'll monitor for any medication side effects side effects and monitor his ongoing response. We'll continue to cover this patient through the weekend.
[2018-02-08 17:34] LABS: Glucose,Whole Blood 102 mg/dL (75-99)
[2018-02-08] MEDS: ATORVASTATIN 80 MG TAB PO SCH (19:59)
[2018-02-08] MEDS: DIVALPROEX ER 250 MG TAB.ER.24H PO SCH (19:59)
[2018-02-08 20:07] LABS: Glucose,Whole Blood 155 mg/dL (75-99)
[2018-02-09 06:18] LABS: Glucose,Whole Blood 136 mg/dL (75-99)
[2018-02-09] MEDS: INSULIN ASPART 100 UNIT/ML 1 ML 10 ML VIAL SQ SCH ×4 (07:45→20:14)
[2018-02-09] MEDS: DONEPEZIL 10 MG TAB PO SCH (08:47)
[2018-02-09] MEDS: metFORMIN 500 MG TAB PO SCH ×2 (08:48→20:38)
[2018-02-09] MEDS: MEMANTINE 5 MG TAB PO SCH ×2 (08:48→20:38)
[2018-02-09] MEDS: OLANZapine 5 MG TAB PO SCH ×2 (08:48→20:38)
[2018-02-09] MEDS: LINAGLIPTIN 5 MG TABLET PO SCH ×2 (08:48→20:38)
[2018-02-09] MEDS: LISINOPRIL 2.5 MG TAB PO SCH (08:48)
[2018-02-09] MEDS: INSULIN DETEMIR 100 UNIT/ML 10 ML VIAL SQ SCH (09:40)
[2018-02-09 12:16] LABS: Glucose,Whole Blood 195 mg/dL (75-99)
[2018-02-09] MEDS: glipiZIDE 10 MG TAB PO SCH (12:36)
--- NOTE | 2018-02-09 14:56 | P.PN ---
Progress Note - Text Progress Note Date: 02/09/18 Interval history: Patient is seen again in [facility] today. He reports that he is sleeping and eating well. When asked about his mood he describes that it was doing good, but now verbalizes concerns over what his family is trying to do to him. When asked regarding this, he mentions multiple court things that he needs to go to. He does not seem to voice any adverse psychotropic medication side effects. Mental status exam: He is alert and cooperative with the interview. He voices that his mood was doing good but now verbalizes concern over what his family is trying to do to him. He denies any thoughts of harm to self and relates he has not been having any thoughts of harm to self over the last few days. He does not verbalize any thoughts of harm to others. He does not show any significant degree of agitation. He has not verbalize any hallucinations. Plan: We'll maintain current psychotropic medication regimen. We'll continue to monitor for any medication side effects and for his ongoing response.
[2018-02-09 17:26] LABS: Glucose,Whole Blood 129 mg/dL (75-99)
[2018-02-09 20:12] LABS: Glucose,Whole Blood 197 mg/dL (75-99)
[2018-02-09] MEDS: DIVALPROEX ER 250 MG TAB.ER.24H PO SCH (20:38)
[2018-02-09] MEDS: ATORVASTATIN 80 MG TAB PO SCH (20:38)
[2018-02-10 06:38] LABS: Glucose,Whole Blood 158 mg/dL (75-99)
[2018-02-10] MEDS: INSULIN ASPART 100 UNIT/ML 1 ML 10 ML VIAL SQ SCH ×4 (07:59→20:00)
[2018-02-10] MEDS: DONEPEZIL 10 MG TAB PO SCH (08:42)
[2018-02-10] MEDS: LISINOPRIL 2.5 MG TAB PO SCH (08:43)
[2018-02-10] MEDS: LINAGLIPTIN 5 MG TABLET PO SCH ×2 (08:43→20:02)
[2018-02-10] MEDS: MEMANTINE 5 MG TAB PO SCH ×2 (08:43→20:02)
[2018-02-10] MEDS: OLANZapine 5 MG TAB PO SCH ×2 (08:44→20:02)
[2018-02-10] MEDS: metFORMIN 500 MG TAB PO SCH ×2 (08:44→20:02)
[2018-02-10] MEDS: INSULIN DETEMIR 100 UNIT/ML 10 ML VIAL SQ SCH (08:45)
[2018-02-10 09:42] VITALS: BMI 23.2
[2018-02-10] MEDS: glipiZIDE 10 MG TAB PO SCH (12:39)
[2018-02-10 12:47] LABS: Glucose,Whole Blood 191 mg/dL (75-99)
--- NOTE | 2018-02-10 16:22 | P.PN ---
Progress Note - Text Progress Note Date: 02/10/18 Interval History: Patient is a 77-year-old male who was seen today and he states that he is sleeping and eating well. Patient and I discussed that his again reported that he had made suicidal statements this weekend while she was visiting the patient again adamantly denied that stating that she is lying about it and states that he has no current suicidal thoughts nor any homicidal thoughts. Patient states that his older son is instigating all this garbage. Patient then went on to state that he feels his older son once his house for his children. And patient also stated that they want to send me somewhere. Patient continues to refuse to go to groups stating that he doesn't like them. Mental Status: Appearance/Attitude: Patient is casually dressed, makes intermittent eye contact and was cooperative Behavior: Patient does not exhibit any psychomotor agitation or retardation. Speech/Language: Patient's speech is nonspontaneous but normal volume and rhythm , he responds only to my questions and is coherent Thought Process: Patient is goal-directed in his responses no evidence of loose association or flight of ideas Thought Content: Patient denies any auditory or visual hallucinations and no delusions or paranoid ideation or elicited. Patient states that he is sleeping and eating well. Suicidal/Homicidal Ideation: Patient continues to deny adamantly to me that he has any suicidal thoughts or homicidal thoughts and states that he has never made any suicidal threats while his is been visiting. Sensorium/Cognition: Patient is alert and oriented to person, situation stated that it was January 11 and could not recall the year and continues to have difficulty recalling words when he is discussing things, has been diagnosed with a neurocognitive disorder. Mood/Affect: Patient's mood is slightly irritable and his affect is blunted Insight/Judgment: Patient's insight and judgment are limited Assessment: Patient continues to deny that he is ever made any suicidal or homicidal threats to his or to other family members, when confronted again with this he again denies it. Patient's had reported to security that while visiting with him over the weekend he again made suicidal threats. Patient has been compliant with his medications and does not attend any groups or activities stating that he dislikes them. He has been sleeping and eating well. Patient's family contacted us and stated that they have found a senior apartment in [place] and that they would provide meals and dispense medication but that this was not a 24 hour supervised living situation or a locked unit. When I spoke with Blaze the patient's guardian he stated that the family was comfortable with this placement situation, when I discussed with him that we were uncomfortable with the placement secondary to the patient's continued voicing of suicidal threats per his he again stated that the family was comfortable with this placement. When I asked about [facility] he stated there were no beds available. I again voiced my concerns regarding the lack of supervised living, lack of a locked living situation and concerns that the patient would act on the threats that he has made to the family. Plan: Patient will continue on Depakote 250 mg extended release and Zyprexa 5 mg twice a day to target his aggressive agitated behavior. Patient remains in the hospital awaiting an appropriate placement as he continues to verbalize while family members visit suicidal threats. Patient's son, Blaze stated that he would get back with us regarding my concerns about this most recent placement suggestion of the family's.
[2018-02-10 17:24] LABS: Glucose,Whole Blood 165 mg/dL (75-99)
[2018-02-10 20:00] LABS: Glucose,Whole Blood 205 mg/dL (75-99)
[2018-02-10] MEDS: ATORVASTATIN 80 MG TAB PO SCH (20:02)
[2018-02-10] MEDS: DIVALPROEX ER 250 MG TAB.ER.24H PO SCH (20:02)
[2018-02-11 06:28] LABS: Glucose,Whole Blood 137 mg/dL (75-99)
[2018-02-11] MEDS: INSULIN ASPART 100 UNIT/ML 1 ML 10 ML VIAL SQ SCH ×4 (08:00→20:14)
[2018-02-11] MEDS: LINAGLIPTIN 5 MG TABLET PO SCH ×2 (08:28→21:03)
[2018-02-11] MEDS: DONEPEZIL 10 MG TAB PO SCH (08:28)
[2018-02-11] MEDS: MEMANTINE 5 MG TAB PO SCH ×2 (08:28→21:03)
[2018-02-11] MEDS: metFORMIN 500 MG TAB PO SCH ×2 (08:28→21:03)
[2018-02-11] MEDS: LISINOPRIL 2.5 MG TAB PO SCH (08:28)
[2018-02-11] MEDS: OLANZapine 5 MG TAB PO SCH ×2 (08:29→21:03)
[2018-02-11] MEDS: INSULIN DETEMIR 100 UNIT/ML 10 ML VIAL SQ SCH (08:55)
[2018-02-11 12:05] LABS: Glucose,Whole Blood 184 mg/dL (75-99)
[2018-02-11] MEDS: glipiZIDE 10 MG TAB PO SCH (12:54)
--- NOTE | 2018-02-11 13:27 | P.PN ---
Progress Note - Text Progress Note Date: 02/11/18 Interval History: Patient is a 77-year-old male who was seen today and states he had no complaints and states he is doing fine. He states he is eating and sleeping well. Patient became irritable when I discussed guardianship with him blaming his older son stating that he thinks his older son is after his money and feels that the older son should be helping his younger brother out financially. Patient did agree that he was having some difficulty with his memory but stated it sold age and it really isn't that much of a problem. Patient stated he had no other concerns at this time and stated he's had no side effects from his medication. Mental Status: Appearance/Attitude: Patient is appropriately dressed, makes intermittent eye contact and was cooperative Behavior: Patient did not display any psychomotor agitation or retardation but did become irritable when discussing guardianship. Speech/Language: Patient spoke in a normal volume and rhythm and he responded to questions otherwise he was not spontaneous and he was coherent Thought Process: Patient was goal-directed in his responses to questions are very brief and non-elaborative there is no evidence of loose association or flight of ideas Thought Content: Patient denied any auditory or visual hallucinations no delusions or paranoid ideation were elicited. Patient states that he is eating and sleeping well. Patient states he really dislikes his older son because he thinks he should be helping his brother financially and states that he is upset about the guardianship and that they have taken everything from him. He feels his guardian should've been his and his younger son. Patient stated that he had no complaints today no side effects from medication. Suicidal/Homicidal Ideation: Patient again adamantly stated that he is not currently suicidal or homicidal Sensorium/Cognition: Patient is alert and oriented to person, situation and further cognitive testing was not performed today the patient has a diagnosis of neurocognitive disorder Mood/Affect: Patient's mood became irritable when we were discussing his older son and guardianship patient's affect is slightly blunted Insight/Judgment: Patient's insight and judgment are limited Assessment: Patient has been compliant with medication, has not been attending groups or activities stating that he doesn't like groups. Patient is seen occasionally on the unit interacting with peers. Patient remains irritable when discussing the idea of guardianship and states that his younger son and should've been guardian as he dislikes his older son feels that he is out after his money and should be helping his younger brother financially. Patient again adamantly denies that he has any suicidal or homicidal ideation and denies that he is ever made those statements. Patient did admit today that he does have some problems with his memory but feels that stress due to old age. Patient states that he is eating and sleeping well the patient is appropriately dressed and groomed. Patient has not exhibited any aggressive behavior on the unit nor is there been any evidence of self-harm on the unit. Plan: abrasive worker spoken with his older son jimy again today and they discussed that the family has planned to visit an [facility] in [place] today after their visit they contacted the long term care social worker and said that they were agreeable with this placement. Social work has confirmed with the placement that they do not need to screen the patient, this is a supervised living situation and they will provide transportation to the [facility] tomorrow and the family was agreeable with staff transporting patient to [facility]. Patient will continue on Zyprexa 5 twice a day as well as the Depakote 250 mg extended release at bedtime. Plan will be for patient to be discharged to the [facility] tomorrow by staff, I will be informing the patient of this tomorrow when I meet with him.
[2018-02-11 17:49] LABS: Glucose,Whole Blood 145 mg/dL (75-99)
[2018-02-11 19:58] LABS: Glucose,Whole Blood 171 mg/dL (75-99)
[2018-02-11] MEDS: ATORVASTATIN 80 MG TAB PO SCH (21:02)
[2018-02-11] MEDS: DIVALPROEX ER 250 MG TAB.ER.24H PO SCH (21:02)
[2018-02-12 06:29] LABS: Glucose,Whole Blood 128 mg/dL (75-99)
[2018-02-12 06:54] VITALS: TEMP 98.1
[2018-02-12] MEDS: INSULIN ASPART 100 UNIT/ML 1 ML 10 ML VIAL SQ SCH ×2 (07:53→12:29)
[2018-02-12] MEDS: INSULIN DETEMIR 100 UNIT/ML 10 ML VIAL SQ SCH (09:08)
[2018-02-12] MEDS: OLANZapine 5 MG TAB PO SCH (09:11)
[2018-02-12] MEDS: LISINOPRIL 2.5 MG TAB PO SCH (09:12)
[2018-02-12] MEDS: DONEPEZIL 10 MG TAB PO SCH (09:12)
[2018-02-12] MEDS: LINAGLIPTIN 5 MG TABLET PO SCH (09:12)
[2018-02-12] MEDS: MEMANTINE 5 MG TAB PO SCH (09:12)
[2018-02-12] MEDS: metFORMIN 500 MG TAB PO SCH (09:12)
[2018-02-12 09:14] VITALS: BP 114/59; PULSE 88; RESP 16
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
[2018-02-12] MEDS ORDERED: glipiZIDE 5 MG TAB PO SCH (12:30)
[2018-02-12 12:32] LABS: Glucose,Whole Blood 224 mg/dL (75-99)
== END 2018-02-12 13:45 | disposition home or self-care (01) | DRG 57 ==
LOC: EC 00:17 → 3MHU 04:33
PROVIDERS: ADMIT Psychiatry & Neurology Psychiatry; ATTEND Psychiatry & Neurology Psychiatry
DX: G30.9 Alzheimer's disease, unspecified (principal); F02.81 Dementia in other diseases classified elsewhere, unspecified severity, with behavioral disturbance; R45.851 Suicidal ideations; N17.9 Acute kidney failure, unspecified; R45.850 Homicidal ideations; E11.9 Type 2 diabetes mellitus without complications; E78.5 Hyperlipidemia, unspecified; I10 Essential (primary) hypertension; N40.0 Benign prostatic hyperplasia without lower urinary tract symptoms; F39 Unspecified mood [affective] disorder; H91.90 Unspecified hearing loss, unspecified ear; Z79.84 Long term (current) use of oral hypoglycemic drugs; Z79.899 Other long term (current) drug therapy; Z90.49 Acquired absence of other specified parts of digestive tract; Z87.891 Personal history of nicotine dependence
CPT/HCPCS: 36415; 80048; 80061; 80164; 80306; 81001; 82075; 83036; 85025; 93005; 99285

== ENCOUNTER 2018-04-25 14:25 | Observation (INO) | payer MEDICARE ==
--- NOTE | 2018-04-25 15:30 | XR ---
EXAMINATION TYPE: XR hand complete LT DATE OF EXAM: 04/25/2018 CLINICAL HISTORY: pain TECHNIQUE: Frontal, lateral and oblique images of the left hand are obtained. COMPARISON: None. FINDINGS: There is no acute fracture/dislocation evident. Erosive changes noted at the DIP joint to left fifth digit. Scattered joint space narrowing identified. The overlying soft tissue appears unrem arkable. IMPRESSION: There is no acute fracture or dislocation. ICD 10 NO FRACTURE, INITIAL EVALUATION
[2018-04-25] MEDS ORDERED: SODIUM CHLORIDE 0.9% 1,000 ML IV STA (15:53)
[2018-04-25] MEDS ORDERED: AMPICILLIN-SULBACTAM 3 GM in SODIUM CHLORIDE 0.9% 100 ML IVPB STA (15:54)
[2018-04-25] MEDS ORDERED: NALOXONE 0.4 MG/ML 1 ML VIAL IV PRN (16:33)
[2018-04-25] MEDS ORDERED: HYDROcodone/APAP 5-325MG 1 EACH TAB PO PRN (16:33)
[2018-04-25] MEDS ORDERED: ACETAMINOPHEN TAB 325 MG TAB PO PRN (16:33)
--- NOTE | 2018-04-25 16:33 | ED ---
General Adult HPI - General Source: patient, RN notes reviewed Mode of arrival: ambulatory Limitations: no limitations <Saman Espino - Last Filed: 04/25/18 16:51> <Ross Hernandez - Last Filed: 04/25/18 17:03> - General Chief complaint: Extremity Injury, Upper Stated complaint: hand pain Time Seen by Provider: 04/25/18 15:24 - History of Present Illness Initial comments: 77-year-old male with a history of Type 2 diabetes controlled on metformin, hyperlipidemia, and hypertensionpresents to the emergency department for a chief complaint of left hand pain x 2 days. Patient states he has difficulty closing his fingers and hand. Patient states he has a history of a "trigger finger" in the past that he was supposed to have a surgery for but did not receive it. Patient states he did not have any difficulty with any other digits besides theleft fourth digit prior to this. Patient also complains of pain in the left wrist. Patient states this started last night and did keep him awake. Patient states he also noticed redness up the arm earlier today. He denies fevers or chills at home. Patient has no other complaints at this time including shortness of breath, chest pain, abdominal pain, nausea or vomiting, headache, or visual changes. (Saman Espino) - Related Data Home Medications Medication Instructions Recorded Confirmed sitaGLIPtin PHOSPHATE [Januvia] 100 mg PO DAILY 04/25/18 04/25/18 Previous Rx's Medication Instructions Recorded Atorvastatin [Lipitor] 80 mg PO HS #28 tab 02/12/18 Divalproex ER [Depakote ER] 250 mg PO HS #28 tab.er.24h 02/12/18 Donepezil HCl [Aricept] 10 mg PO DAILY #28 tablet 02/12/18 Insulin Detemir [Levemir] 15 unit SQ DAILY 28 Days #28 syr 02/12/18 Lisinopril [Zestril] 2.5 mg PO DAILY #28 tab 02/12/18 Memantine [Namenda] 5 mg PO DAILY #28 tab 02/12/18 OLANZapine [ZyPREXA] 5 mg PO BID #56 tab 02/12/18 glipiZIDE [Glucotrol] 5 mg PO AC-LUNCH #28 tab 02/12/18 metFORMIN HCL [Glucophage] 1,000 mg PO BID #152 tab 02/12/18 Allergies Allergy/AdvReac Type Severity Reaction Status Date / Time No Known Allergies Allergy Verified 04/25/18 14:31 Review of Systems ROS Other: All systems not noted in ROS Statement are negative. <Saman Espino P - Last Filed: 04/25/18 16:51> ROS Other: All systems not noted in ROS Statement are negative. <Ross Hernandez - Last Filed: 04/25/18 17:03> ROS Statement: Those systems with pertinent positive or pertinent negative responses have been documented in the HPI. Past Medical History Past Medical History: Diabetes Mellitus, Hyperlipidemia, Hypertension, Prostate Disorder History of Any Multi-Drug Resistant Organisms: None Reported Past Surgical History: Appendectomy, Cholecystectomy Past Psychological History: Depression Smoking Status: Former smoker Past Alcohol Use History: None Reported Past Drug Use History: None Reported <Saman Espino P - Last Filed: 04/25/18 16:51> General Exam Limitations: no limitations General appearance: alert, in no apparent distress Head exam: Present: atraumatic, normocephalic, normal inspection Eye exam: Present: normal appearance, PERRL, EOMI. Absent: scleral icterus, conjunctival injection, periorbital swelling ENT exam: Present: normal exam, mucous membranes moist Neck exam: Present: normal inspection, full ROM. Absent: tenderness, meningismus, lymphadenopathy, thyromegaly Respiratory exam: Present: normal lung sounds bilaterally. Absent: respiratory distress, wheezes, rales, rhonchi, stridor Cardiovascular Exam: Present: regular rate, normal rhythm, normal heart sounds. Absent: systolic murmur, diastolic murmur, rubs, gallop, clicks Extremities exam: Present: tenderness (Patient does have left flexor wrist tenderness. ), normal capillary refill (Capillary refill less than 2 seconds and radial pulse 2+ in the left upper extremity. ), other (Patient does have 2 areas of streaking redness from the wrist up the medial aspect of the forearm to the left elbow. Sensation intact in the left upper extremity). Absent: full ROM (Patient is not able to fully flex fingers and iso coordinator strength is decreased. No pain with extension of the fingers. No tenderness or erythema along the flexor tendons. Patient has limited flexion and extension of the left wrist as well. He has about 10 flexion and extension of the wrist) Neurological exam: Present: alert, oriented X3, CN II-XII intact Psychiatric exam: Present: normal affect, normal mood <Saman Espino - Last Filed: 04/25/18 16:51> Vital Signs 04/25/18 14:30 Temperature 97.7 F Pulse Rate 65 Respiratory 18 Rate Blood Pressure 130/69 O2 Sat by Pulse 100 Oximetry Medical Decision Making - Lab Data Result diagrams: 04/25/18 16:10 <Saman Espino - Last Filed: 04/25/18 16:51> - Lab Data Result diagrams: 04/25/18 16:10 <Ross Hernandez - Last Filed: 04/25/18 17:03> - Medical Decision Making 77-year-old male with history of diabetes, hypertension, hyperlipidemia presents to the emergency department for left hand and wrist pain 2 days. Patient states he noticed the left wrist pain last night and it kept him awake. Patient states he noticed redness this morning. Patient has decreased range of motion of the left wrist to about 20 flexion and extension. Patient does have pain with both flexion and extension. There is evident redness noted on the fall or wrist radial aspect. There are 2 small streaks noted from the wrist up to the volar aspect of the left elbow consistent with lymphangitis Patient also complains of left hand pain. No pain with extension of the fingers or tenderness of the flexor tendons in the hand. No erythema noted of the flexor tendons in the hand. CBC unremarkable with a white count of 7.6. Blood cultures were obtained. X-rays of the hand and wrist were also obtained. Hand x-ray shows no acute fracture or dislocation. There are erosive changes noted at the DIP joint of the left fifth digit. Scattered joint space narrowing identified. Wrist x-ray pending at this time. Patient was started on Unasyn. Patient will be admitted to Dr. keith. Dr. Hernandez did see the patient and spoke with Dr. keith. (Saman Espino) Patient reevaluated by myself, Dr. Hernandez. Patient does have some erythema of the bullae are left wrist with lymphangitic streaking above the left elbow. Mild tenderness. Patient and family updated on results and plan. Case was discussed in detail with Dr. keith, who will admit for Dr. Tracey. (Ross Hernandez) - Lab Data Lab Results 04/25/18 Range/Units 16:10 WBC 7.6 (3.8-10.6) k/uL RBC 4.33 (4.30-5.90) m/uL Hgb 12.3 L (13.0-17.5) gm/dL Hct 37.3 L (39.0-53.0) % MCV 86.0 (80.0-100.0) fL MCH 28.4 (25.0-35.0) pg MCHC 33.0 (31.0-37.0) g/dL RDW 13.4 (11.5-15.5) % Plt Count 193 (150-450) k/uL Neutrophils % 69 % Lymphocytes % 19 % Monocytes % 7 % Eosinophils % 3 % Basophils % 1 % Neutrophils # 5.2 (1.3-7.7) k/uL Lymphocytes # 1.4 (1.0-4.8) k/uL Monocytes # 0.5 (0-1.0) k/uL Eosinophils # 0.3 (0-0.7) k/uL Basophils # 0.1 (0-0.2) k/uL Disposition Is patient prescribed a controlled substance at d/c from ED?: No Time of Disposition: 16:33 <Saman Espino - Last Filed: 04/25/18 16:51> <Ross Hernandez - Last Filed: 04/25/18 17:03> Clinical Impression: Wrist pain, left, Lymphangitis Disposition: ADMITTED IP TO THIS HOSP Condition: Good Referrals: Franco Tracey DO [Primary Care Provider] - 1-2 days
[2018-04-25 16:36] LABS: Basophils # (A) 0.1 k/uL (0-0.2); Basophils % (A) 1 %; Eosinophils # (A) 0.3 k/uL (0-0.7); Eosinophils % (A) 3 %; HCT 37.3 % (39.0-53.0); HGB 12.3 gm/dL (13.0-17.5); Lymphocytes # (A) 1.4 k/uL (1.0-4.8); Lymphocytes % (A) 19 %; MCH 28.4 pg (25.0-35.0); Mean Platelet Volume 8.8; Monocytes # (A) 0.5 k/uL (0-1.0); Monocytes % (A) 7 %; Neutrophils # (A) 5.2 k/uL (1.3-7.7); Neutrophils % (A) 69 %; Platelet Count 193 k/uL (150-450); RBC 4.33 m/uL (4.30-5.90); RDW 13.4 % (11.5-15.5); WBC 7.6 k/uL (3.8-10.6)
--- NOTE | 2018-04-25 16:58 | XR ---
EXAMINATION TYPE: XR wrist complete LT DATE OF EXAM: 04/25/2018 COMPARISON: NONE HISTORY: Pain and redness TECHNIQUE: 4 views FINDINGS: There is atherosclerotic vascular calcification. There are small degenerative cyst in the d istal scaphoid bone. There is minor spurring at the first carpometacarpal joint. I see no fracture no r dislocation. IMPRESSION: No acute abnormality of the left wrist.
[2018-04-25 16:59] LABS: ALT 38 U/L (21-72); AST 43 U/L (17-59); Albumin 4.5 g/dL (3.5-5.0); Alkaline Phosphatase 111 U/L (38-126); Anion Gap 10 mmol/L; Blood Urea Nitrogen 19 mg/dL (9-20); C Reactive Protein <5.0 mg/L (<10.0); Calcium 10.1 mg/dL (8.4-10.2); Carbon Dioxide 26 mmol/L (22-30); Chloride 103 mmol/L (98-107); Glucose 123 mg/dL (74-99); Sodium 139 mmol/L (137-145); Total Bilirubin 0.4 mg/dL (0.2-1.3); Total Protein 7.8 g/dL (6.3-8.2)
[2018-04-25 17:28] VITALS: BMI 25.0
[2018-04-25 18:07] LABS: Glucose,Whole Blood 87 mg/dL (75-99)
[2018-04-25] MEDS ORDERED: ALPRAZolam 0.25 MG TAB PO PRN (18:17)
--- NOTE | 2018-04-25 19:33 | P.CNOR ---
History of Present Illness - [facility] Consult date: 04/25/18 Consult reason: other (Lymph swelling left upper extremity) History of present illness: Patient is a pleasant 77-year-old male who started having some pain and mild swelling in his left upper extremity yesterday. He says it was bothering him and he was unable to sleep last night and he denies any injury. Denies any pain in his left upper extremity today. He says he feels like getting better. Denies any changes in his neurologic status is lumbar and left upper extremity. Denies any neck pain. Denies any injury or trauma. Denies any recent bites or abrasions of his left upper extremity. Review of Systems Denies chest pain shortness breath. Denies neck pain. Denies any weakness in his upper extremity. He says his pain in the left upper extremity getting significantly better. He's noticed some red streaking at the left volar forearm with some very mild swelling however this seems to be resolving well. He is not having changes in sensation. Denies any trauma area denies any history of this issue in the past. Denies a proximal right upper extremity. Past Medical History Past Medical History: Dementia, Diabetes Mellitus, Hyperlipidemia, Hypertension , Prostate Disorder, Seizure Disorder History of Any Multi-Drug Resistant Organisms: None Reported Past Surgical History: Appendectomy, Cholecystectomy Past Psychological History: Depression Smoking Status: Former smoker Past Alcohol Use History: None Reported Past Drug Use History: None Reported - Past Family History Mother Family Medical History: Diabetes Mellitus Father History Unknown: Yes Medications and Allergies Home Medications Medication Instructions Recorded Confirmed Type Atorvastatin [Lipitor] 80 mg PO HS #28 tab 02/12/18 04/25/18 Rx Divalproex ER [Depakote ER] 250 mg PO HS #28 tab.er.24h 02/12/18 04/25/18 Rx Donepezil HCl [Aricept] 10 mg PO DAILY #28 tablet 02/12/18 04/25/18 Rx Insulin Detemir [Levemir] 15 unit SQ DAILY 28 Days #28 syr 02/12/18 04/25/18 Rx Lisinopril [Zestril] 2.5 mg PO DAILY #28 tab 02/12/18 04/25/18 Rx Memantine [Namenda] 5 mg PO DAILY #28 tab 02/12/18 04/25/18 Rx OLANZapine [ZyPREXA] 5 mg PO BID #56 tab 02/12/18 04/25/18 Rx glipiZIDE [Glucotrol] 5 mg PO AC-LUNCH #28 tab 02/12/18 04/25/18 Rx metFORMIN HCL [Glucophage] 1,000 mg PO BID #152 tab 02/12/18 04/25/18 Rx sitaGLIPtin PHOSPHATE [Januvia] 100 mg PO DAILY 04/25/18 04/25/18 History Allergies Allergy/AdvReac Type Severity Reaction Status Date / Time No Known Allergies Allergy Verified 04/25/18 17:42 Physical Examination Osteopathic Statement: *. No significant issues noted on an osteopathic structural exam other than those noted in the History and Physical/Consult. - Wrist & Hand left Location of pain: no pain, volar wrist (At left lower extremity there is some very mild volar streaking ranging coming from the wrist up toward the elbow. There is no swelling. He is nontender over the area. There is no significant meningitis at his axilla or neck. He has good motion of his wrist and fingers and hand. His good strength. Cap refill less than 2 seconds pulses are 2 over 4. His compartments are soft. He has good motion and is nontender to palpation over his wrist and fingers perform elbow or shoulder. He's no pain with active passive range of motion of his neck. Remainder of exam is essentially negative) Results - Labs Labs: Abnormal Lab Results - Last 24 Hours (Table) 04/25/18 04/25/18 Range/Units 16:10 16:10 Hgb 12.3 L (13.0-17.5) gm/dL Hct 37.3 L (39.0-53.0) % Glucose 123 H (74-99) mg/dL H & H 04/25/18 Range/Units 16:10 Hgb 12.3 L (13.0-17.5) gm/dL Hct 37.3 L (39.0-53.0) % Result Diagrams: 04/25/18 16:10 04/25/18 16:10 - Diagnostic results Wrist/Hand x-ray: report reviewed, image reviewed (X-rays of the forearm and left wrist and hand show no evidence of any fracture dislocation or foreign object) Assessment and Plan Assessment: Mild left forearm swelling with some lymphangitis, acute and resolving Plan: The patient does not have any bony injury. He does not seem to have any injury around his joint. There is no trauma. He has some very mild swelling and very mild streaking or wrist limp tract at the volar forearm but this seems to be resolving well with medical management. I do not plan any surgical intervention or further orthopedic imaging. It is okay for him to use his left upper extremity to his tolerance. He should continue his medical management per medicine service. From an orthopedic standpoint we can sign off and We can follow him up on as-needed basis.
--- NOTE | 2018-04-25 20:20 | HP ---
HISTORY AND PHYSICAL DATE OF SERVICE: 04/05/2018 CHIEF COMPLAINT: Pain and redness of the left wrist. HISTORY OF PRESENT ILLNESS: This 77-year-old gentleman with past medical history of dementia, hypertension, hyperlipidemia, history of diabetes, prostate disorder being followed by Dr. Tracey in the outpatient setting, living in an assisted living facility. The patient noted some hardness in the left palm and as well as noted some difficulty in the left wrist and was unable to sleep last night. This morning, the patient woke up and still discomfort was persisting. Patient noted diffuse reddish lesions on the left wrist with streaking also, history of lymphangitis also. There is no history of fever, rigors or chills. No history of headache, loss of consciousness, seizures at this time. PAST MEDICAL HISTORY: History of dementia, diabetes, hypertension, hyperlipidemia, history of prostate disorder. MEDICATIONS: Prior to admission include home medication include: 1. Glucophage 1000 mg p.o. b.i.d. 2. Glucotrol 5 mg a.c. lunch. 3. Namenda 5 mg p.o. daily. 4. Zestril 2.5 mg daily. 5. Aricept 10 mg p.o. daily. 6. Depakote ER 250 mg q.h.s. 7. Janumet 100 mg p.o. daily. 8. Zyprexa 5 mg p.o. b.i.d. 9. Levemir 115 units subcu daily. 10.Lipitor 80 mg q.h.s. ALLERGIES: None. FAMILY HISTORY: History of diabetes in the family. SOCIAL HISTORY: Previous history of smoking. No history of current smoking or alcohol intake. REVIEW OF SYSTEMS: ENT: Diminished hearing and diminished vision. CARDIOVASCULAR: No angina or palpitations. RESPIRATORY: No cough. No hemoptysis. GASTROINTESTINAL: As mentioned earlier. : No dysuria or retention. NERVOUS SYSTEM: No numbness or weakness. ALLERGY/IMMUNOLOGY: No asthma or hayfever. MUSCULOSKELETAL: As mentioned earlier. HEMATOLOGY/ONCOLOGY: As mentioned earlier. CONSTITUTIONAL: As mentioned earlier. ENDOCRINE: As mentioned earlier. DERMATOLOGY: As mentioned earlier. RHEUMATOLOGY: Negative. PSYCHIATRIC: As mentioned earlier. PHYSICAL EXAMINATION: Alert and oriented x3. The pulse is 61, blood pressure 139/66, respirations 16, temperature 97.6, pulse ox 94% on 2 L. HEENT: Conjunctivae normal. Oral mucosa moist. Neck is no jugular venous distention. No carotid bruit. No lymph node enlargement. Cardiovascular: S1, S2 muffled. No S3, no S4. RESPIRATORY: Breath sounds diminished in the bases. A few scattered rhonchi. ABDOMEN: Soft, nontender. No mass palpable. LEGS: No edema. No swelling. Nervous system: Higher functions as mentioned earlier. Moves all four extremities. No focal motor or sensory deficits. Lymphatics: No lymph nodes palpable in the neck, axillae or groin. movement of joint, left wrist joint is mildly painful. Skin: Sticky reddish areas in the left wrist also moving proximally also noted. LABS: WBC 11.7, hemoglobin 12.3. ASSESSMENT: 1. 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 2. Dementia. 3. Diabetes mellitus type 2. 4. Hypertension. 5. Hyperlipidemia. 6. History of prostate disorder. 7. History of depression. 8. Remote history of nicotine dependence. 9. NO CODE, NO CPR, NO VENT. RECOMMENDATIONS AND DISCUSSION: In this 77-year-old gentleman who presented with multiple complex medical issues , at this time, I recommend to continue current management and symptomatic treatment. The exact etiology of the redness unknown at this time. I will treat the patient empirically with Unasyn. Orthopedic and infectious disease evaluation. Otherwise, I would also resume the home medications. Monitor blood sugars closely. Guarded prognosis because of multiple complex medical issues. Further recommendations to follow. Discussed with the family. See orders for details. Copy of dictation forwarded to Dr. Tracey who is the primary physician. MMZABRINA / FERNANDON: [id number] / MTDD
[2018-04-25 20:27] LABS: Glucose,Whole Blood 162 mg/dL (75-99)
[2018-04-25] MEDS: ATORVASTATIN 80 MG TAB PO SCH (20:38)
[2018-04-25] MEDS: PANTOPRAZOLE 40 MG TABLET PO SCH (20:38)
[2018-04-25] MEDS: SODIUM CHLORIDE 0.9% 1,000 ML IV SCH (20:38)
[2018-04-25] MEDS: metFORMIN 500 MG TAB PO SCH (20:38)
[2018-04-25] MEDS: HEPARIN SODIUM,PORCINE 5,000 UNIT/ML 1 ML VIAL SQ SCH (20:38)
[2018-04-25] MEDS: OLANZapine 5 MG TAB PO SCH (20:38)
[2018-04-25] MEDS: DIVALPROEX ER 250 MG TAB.ER.24H PO SCH (20:39)
[2018-04-25] MEDS: INSULIN ASPART 100 UNIT/ML 1 ML 10 ML VIAL SQ SCH (20:39)
[2018-04-25 23:50] LABS: Appearance,Urine Clear (Clear); Bilirubin,Urine Negative (Negative); Blood,Urine Negative (Negative); Color,Urine Light Yellow; Glucose,Urine (UA) Negative (Negative); Ketones,Urine Negative (Negative); Leukocyte Esterase,Urine Negative (Negative); Nitrite,Urine Negative (Negative); Protein,Urine Negative (Negative); Specific Gravity,Urine 1.009 (1.001-1.035); Urobilinogen,Urine <2.0 mg/dL (<2.0)
[2018-04-25] MEDS: AMPICILLIN-SULBACTAM 3 GM in SODIUM CHLORIDE 0.9% 100 ML IVPB SCH (23:50)
[2018-04-26] MEDS: AMPICILLIN-SULBACTAM 3 GM in SODIUM CHLORIDE 0.9% 100 ML IVPB SCH ×4 (04:02→20:08)
[2018-04-26] MEDS: SODIUM CHLORIDE 0.9% 1,000 ML IV SCH (04:03)
[2018-04-26 06:53] LABS: Glucose,Whole Blood 114 mg/dL (75-99)
[2018-04-26] MEDS: INSULIN ASPART 100 UNIT/ML 1 ML 10 ML VIAL SQ SCH ×4 (07:12→20:09)
[2018-04-26 07:35] VITALS: RESP 16
[2018-04-26 07:36] LABS: Basophils % (A) 0 %; Eosinophils # (A) 0.1 k/uL (0-0.7); Eosinophils % (A) 2 %; HCT 33.8 % (39.0-53.0); HGB 10.6 gm/dL (13.0-17.5); Lymphocytes # (A) 0.9 k/uL (1.0-4.8); Lymphocytes % (A) 14 %; MCH 27.7 pg (25.0-35.0); MCHC 31.5 g/dL (31.0-37.0); MCV 88.1 fL (80.0-100.0); Monocytes # (A) 0.3 k/uL (0-1.0); Monocytes % (A) 5 %; Neutrophils % (A) 78 %; Platelet Count 156 k/uL (150-450); RBC 3.84 m/uL (4.30-5.90); RDW 13.3 % (11.5-15.5); WBC 6.3 k/uL (3.8-10.6)
[2018-04-26 07:59] LABS: Anion Gap 8 mmol/L; Blood Urea Nitrogen 15 mg/dL (9-20); Calcium 9.1 mg/dL (8.4-10.2); Carbon Dioxide 26 mmol/L (22-30); Chloride 107 mmol/L (98-107); Glucose 102 mg/dL (74-99); Potassium 4.6 mmol/L (3.5-5.1); Sodium 141 mmol/L (137-145)
[2018-04-26] MEDS: LISINOPRIL 2.5 MG TAB PO SCH (08:42)
[2018-04-26] MEDS: LINAGLIPTIN 5 MG TABLET PO SCH (08:42)
[2018-04-26] MEDS: MEMANTINE 5 MG TAB PO SCH (08:42)
[2018-04-26] MEDS: metFORMIN 500 MG TAB PO SCH ×2 (08:42→20:08)
[2018-04-26] MEDS: DONEPEZIL 10 MG TAB PO SCH (08:42)
[2018-04-26] MEDS: OLANZapine 5 MG TAB PO SCH ×2 (08:42→20:08)
[2018-04-26] MEDS: PANTOPRAZOLE 40 MG TABLET PO SCH (08:42)
[2018-04-26] MEDS: INSULIN DETEMIR 100 UNIT/ML 10 ML VIAL SQ SCH (08:42)
[2018-04-26] MEDS: HEPARIN SODIUM,PORCINE 5,000 UNIT/ML 1 ML VIAL SQ SCH ×2 (08:44→20:09)
[2018-04-26 12:19] LABS: Glucose,Whole Blood 144 mg/dL (75-99)
[2018-04-26] MEDS ORDERED: glipiZIDE 5 MG TAB PO SCH (12:30)
[2018-04-26 16:51] LABS: Glucose,Whole Blood 168 mg/dL (75-99)
[2018-04-26 19:55] LABS: Glucose,Whole Blood 125 mg/dL (75-99)
--- NOTE | 2018-04-26 19:55 | PN ---
PROGRESS NOTE DATE OF SERVICE: 04/26/2018. HISTORY: This 77-year-old gentleman admitted with erythema and lymphangitis of the left wrist is started on broad-spectrum IV antibiotics. The patient is feeling much better at this time. No chest pain. No palpitations. No fever. The cultures are negative so far. Uric acid was only 5. EXAM: Alert, oriented x3. Pulse is 68, blood pressure 140/75, respirations 6, temperature 97.2, pulse ox 100 percent on room air. HEENT: Conjunctivae normal. Oral mucosa moist. NECK: No jugular venous distention. No lymph node enlargement. CARDIOVASCULAR: S1 and S2 muffled. LUNGS: Breath sounds diminished in the bases. No rhonchi, no crackles. ABDOMEN: Soft, nontender. EXTREMITIES: Left arm minimal erythema present, otherwise much improved. No other focal deficits. LABS: WBC 6.2, hemoglobin 10.6. ASSESSMENT: 1. Acute left wrist cellulitis and lymphangitis. 2. Dementia. 3. Diabetes mellitus type 2. 4. Hypertension. 5. Hyperlipidemia. 6. History of prostate disorder. 7. History of depression. 8. Remote history of nicotine dependency. 9. NO CODE, NO CPR, NO VENT. RECOMMENDATIONS: Continue current management. Continue with antibiotics. Monitor blood sugars closely. Orthopedic input appreciated. Guarded prognosis. Further recommendations to follow. MMODL / IJN: [id number] /
[2018-04-26] MEDS: ATORVASTATIN 80 MG TAB PO SCH (20:08)
[2018-04-26] MEDS: DIVALPROEX ER 250 MG TAB.ER.24H PO SCH (20:08)
[2018-04-27] MEDS: SODIUM CHLORIDE 0.9% 1,000 ML IV SCH (01:57)
[2018-04-27] MEDS: AMPICILLIN-SULBACTAM 3 GM in SODIUM CHLORIDE 0.9% 100 ML IVPB SCH ×2 (03:26→09:04)
--- NOTE | 2018-04-27 05:27 | CONS ---
CONSULTATION DATE OF SERVICE: 04/26/2018. REASON FOR CONSULTATION: Left forearm lymphangitis and possible cellulitis. HISTORY OF PRESENT ILLNESS: The patient is a 77-year-old male who presented to the ER at [facility] yesterday with the chief complaints of left hand and forearm pain for 2 days. The patient was complaining of some difficulty closing his fingers and hand. The patient denies any history of any trauma. Subsequently noticed to have some redness involving the left forearm just above the wrist and a little bit medially. The patient is complaining of pain to be more of a dull aching pain intensity 3 to 4/10, and no radiation with the redness spreading. The patient got concerned and he was brought to the ER. The patient denies any high-grade fever, rigors or chills though. The patient has been diagnosed with cellulitis/lymphangitis. He did have x-rays of the hand and wrist area which did not show any bony destruction. The patient has been in the hospital started on Unasyn. Infectious Disease was consulted for further recommendation regarding antibiotic therapy. REVIEW OF SYSTEMS: CONSTITUTIONAL: Positive for weakness. No high-grade fever. EYES: No complaint. ENT: No complaint. RESPIRATORY: No complaint. CARDIOVASCULAR: No complaint. GENITOURINARY no complaint. GASTROINTESTINAL: No complaint. MUSCULOSKELETAL as per HPI. INTEGUMENTARY as per HPI. PSYCHOLOGICAL no complaint. ENDOCRINE no complaint. NEUROLOGIC no complaint. PAST MEDICAL HISTORY: Diabetes mellitus type 2, hypertension, hyperlipidemia, benign prostatic hypertrophy. PAST SURGICAL HISTORY: Appendectomy and cholecystectomy. SOCIAL HISTORY: Remote history of smoking. No drinking or drug use. FAMILY HISTORY: No pertinent findings noticed. ALLERGIES: No known drug allergies. MEDICATIONS: The patient is currently on Tylenol, [place], Xanax, Unasyn 3 g q.6h. He is on Lipitor, Depakote, Aricept, Glucotrol, heparin, NovoLog, Levemir, Tradjenta, Zestril, Namenda, Glucophage, Narcan, Zyprexa, Protonix. EXAMINATION: VITAL SIGNS: Blood pressure 155/63 with a pulse of 74, temperature 98.8. He is 98% on room air. GENERAL DESCRIPTION is an elderly male up in the room in no distress. No tachypnea or accessory muscles for respiration use. HEENT: Shows slight pallor. No scleral icterus. Oral mucosal membranes is dry. No pharyngeal erythema or thrush. NECK: Trachea central. No thyromegaly. LUNGS: Unlabored breathing. Clear to auscultation anteriorly. No wheeze or crackles. HEART S1, S2. Regular rate and rhythm. ABDOMEN: Soft, no tenderness. No guarding or rigidity. EXTREMITIES: No edema of the feet. Examination of left forearm, the area of the redness seems to have completely resolved. The patient did have good movement of the wrist joint. No open wounds were noticed or any drainage. NEUROLOGICAL: The patient is awake, alert, oriented x3. Mood and affect normal. LABS: Hemoglobin is 10.6, white count 6.3, BUN of 15, creatinine 0.91. Electrolytes have been normal. Blood culture obtained currently pending. DIAGNOSTIC IMPRESSION AND PLAN: Patient admitted to the hospital with left wrist hand and the forearm swelling and redness with concern for cellulitis/lymphangitis more likely from a gram-positive skin ramón that seemed to have responded well to the Unasyn. PLAN: 1. The patient will be kept on Unasyn 3 g every 6 hours. 2. If the patient continues to improve, plan to finish therapy with oral Augmentin 875 b.i.d. for about 5-7 days with close outpatient followup. Family was present at bedside. Their questions were answered. MMODL / IJN: [id number] /
[2018-04-27 06:52] LABS: Glucose,Whole Blood 79 mg/dL (75-99)
[2018-04-27] MEDS: INSULIN ASPART 100 UNIT/ML 1 ML 10 ML VIAL SQ SCH ×2 (07:00→12:59)
[2018-04-27 07:20] LABS: Basophils % (A) 1 %; Eosinophils # (A) 0.1 k/uL (0-0.7); Eosinophils % (A) 3 %; HCT 29.2 % (39.0-53.0); HGB 9.6 gm/dL (13.0-17.5); Lymphocytes % (A) 21 %; MCH 28.3 pg (25.0-35.0); MCHC 32.7 g/dL (31.0-37.0); MCV 86.4 fL (80.0-100.0); Mean Platelet Volume 8.3; Monocytes # (A) 0.3 k/uL (0-1.0); Monocytes % (A) 6 %; Neutrophils # (A) 3.3 k/uL (1.3-7.7); Neutrophils % (A) 68 %; Platelet Count 132 k/uL (150-450); RBC 3.38 m/uL (4.30-5.90); RDW 13.2 % (11.5-15.5); WBC 4.9 k/uL (3.8-10.6)
[2018-04-27 07:23] VITALS: BP 135/74; PULSE 76; TEMP 98.6
[2018-04-27 07:29] LABS: Calcium 8.3 mg/dL (8.4-10.2); Potassium 4.3 mmol/L (3.5-5.1)
[2018-04-27] MEDS: MEMANTINE 5 MG TAB PO SCH (08:10)
[2018-04-27] MEDS: LISINOPRIL 2.5 MG TAB PO SCH (08:10)
[2018-04-27] MEDS: LINAGLIPTIN 5 MG TABLET PO SCH (08:10)
[2018-04-27] MEDS: DONEPEZIL 10 MG TAB PO SCH (08:10)
[2018-04-27] MEDS: metFORMIN 500 MG TAB PO SCH (08:10)
[2018-04-27] MEDS: PANTOPRAZOLE 40 MG TABLET PO SCH (08:10)
[2018-04-27] MEDS: OLANZapine 5 MG TAB PO SCH (08:10)
[2018-04-27] MEDS: HEPARIN SODIUM,PORCINE 5,000 UNIT/ML 1 ML VIAL SQ SCH (08:10)
[2018-04-27] MEDS: INSULIN DETEMIR 100 UNIT/ML 10 ML VIAL SQ SCH (09:04)
[2018-04-27 11:55] LABS: Glucose,Whole Blood 88 mg/dL (75-99)
--- NOTE | 2018-04-27 15:44 | DS ---
DISCHARGE SUMMARY DATE OF SERVICE: 04/27/2018 FINAL DIAGNOSES: 1. Acute left wrist cellulitis and lymphangitis. 2. Dementia. 3. Diabetes mellitus type 2. 4. Hypertension. 5. Hyperlipidemia. 6. History of prostate disease. 7. History of depression. 8. Remote history of nicotine dependence. 9. NO CODE, NO CPR. DISCHARGE DISPOSITION: The patient is being discharged in stable condition with guarded prognosis. HISTORY OF PRESENT ILLNESS: This 77-year-old gentleman with past medical history of multiple medical problems being followed by Dr. Tracey in the outpatient admitted with pain and swelling of the left wrist and as well as lymphangitic streaks going upwards. Patient treated with IV antibiotics. The patient improved significantly. Dr. Bell saw the patient. Cultures are negative at this time. Dr. Bell saw the patient during hospitalization. On exam, vital signs are stable. CARDIOVASCULAR: S1, S2. ABDOMEN: Soft. NERVOUS SYSTEM: No focal deficits. Left wrist appears to be normal. No limitation of movement. No swelling. DISCHARGE ADVICE AND MEDICATIONS: 1. Diet is cardiac. 2. Activity limited until followup. 3. Follow up with Dr. Franco Tracey in 1 to 2 days. Medications are: 1. Sitagliptin 100 mg p.o. daily. 2. Augmentin 875 1 p.o. b.i.d. 3. Lipitor 80 mg q.h.s. 4. Depakote ER 250 mg. 5. Aricept 10 mg p.o. daily. 6. Glucotrol 5 mg a.c. lunch. 7. Levemir 15 units subcu daily. 8. Zestril 2.5 mg daily. 9. Namenda 5 mg p.o. daily. 10.Glucophage 1000 mg p.o. b.i.d. 11.Multivitamins 1 p.o. daily. 12.Zyprexa 5 mg p.o. b.i.d. Follow up labs. Followup evaluation by Dr. Tracey. KARTHIKEYAN / FERNANDON: [id number] /
== END 2018-04-27 13:30 | disposition home or self-care (01) ==
LOC: EC 14:25 → 3SUR 17:03
PROVIDERS: ADMIT Family Medicine; ATTEND Family Medicine
DX: L03.114 Cellulitis of left upper limb (principal); I89.1 Lymphangitis; F03.90 Unspecified dementia, unspecified severity, without behavioral disturbance, psychotic disturbance, mood disturbance, and anxiety; E11.9 Type 2 diabetes mellitus without complications; Z79.84 Long term (current) use of oral hypoglycemic drugs; I10 Essential (primary) hypertension; E78.5 Hyperlipidemia, unspecified; N40.0 Benign prostatic hyperplasia without lower urinary tract symptoms; F32.9 Major depressive disorder, single episode, unspecified; Z87.891 Personal history of nicotine dependence; Z66 Do not resuscitate; G40.909 Epilepsy, unspecified, not intractable, without status epilepticus; M65.30 Trigger finger, unspecified finger; Z90.49 Acquired absence of other specified parts of digestive tract; Z79.899 Other long term (current) drug therapy; Z79.4 Long term (current) use of insulin
CPT/HCPCS: 99284 ×2; 96365 ×2; 96366 ×3; 96372 ×3; 36415; 80053; 80048 ×2; 84550; 85025 ×3; 86140; 81003; 87040; 87086; 83036; 73110; 73130; G0378 ×3; J1644 ×3; J0295 ×3

== ENCOUNTER 2019-06-03 10:02 | Emergency (ER) | payer MEDICARE ==
[2019-06-03 10:16] VITALS: BP 114/60; PULSE 87; RESP 18; TEMP 98
--- NOTE | 2019-06-03 11:10 | XR ---
EXAMINATION TYPE: XR thoracic spine 2V DATE OF EXAM: 06/03/2019 CLINICAL HISTORY: pain TECHNIQUE: Frontal, lateral, and swimmer's view of thoracic spine are obtained. COMPARISON: None. FINDINGS: Thoracic spine show satisfactory alignment without evidence of acute fracture or dislocatio n. Vertebral body heights are preserved. Mild scattered degenerative disc space narrowing. Visuali zed ribs are unremarkable. IMPRESSION: No acute fracture or dislocation is seen in the thoracic spine. ICD 10 NO FRACTURE, INIT IAL EVALUATION
--- NOTE | 2019-06-03 11:35 | ED ---
Back Pain HPI - General Source: patient, family Limitations: no limitations <Jaclyn Rich - Last Filed: 06/03/19 11:13> <Edison Bernal - Last Filed: 06/03/19 11:46> - General Chief Complaint: Back Pain/Injury Stated Complaint: fall, back pain Time Seen by Provider: 06/03/19 10:38 - History of Present Illness Initial Comments: Patient is a 79-year-old male, with history of dementia, presenting to emergency Department with complaints of thoracic back pain that has been intermittent for the last 3-4 weeks. Patient denies any injuries to his back. His states he has had some falls in the past with his most recent being 1 month ago. Patient denies any injuries with that fall. Patient denies any surgeries of his back. Patient's states that he does sit in one certain chair for most of the day and frequently falls asleep in the same chair making him slouched over. Patient has no other complaints at this time. Patient denies fever, chills, numbness and tingling into his extremities. Upon arrival to the ER, vital signs are stable. (Jaclyn Rich) - Related Data Home Medications Medication Instructions Recorded Confirmed sitaGLIPtin PHOSPHATE [Januvia] 100 mg PO DAILY 04/25/18 01/19/19 Divalproex ER [Depakote ER] 500 mg PO HS 01/19/19 01/19/19 Insulin Detemir (Levemir) [Levemir] See Protocol SQ DAILY 01/19/19 01/19/19 Previous Rx's Medication Instructions Recorded Atorvastatin [Lipitor] 80 mg PO HS #28 tab 02/12/18 Donepezil HCl [Aricept] 10 mg PO DAILY #28 tablet 02/12/18 Lisinopril [Zestril] 2.5 mg PO DAILY #28 tab 02/12/18 Memantine [Namenda] 5 mg PO DAILY #28 tab 02/12/18 OLANZapine [ZyPREXA] 5 mg PO BID #56 tab 02/12/18 glipiZIDE [Glucotrol] 5 mg PO AC-LUNCH #28 tab 02/12/18 metFORMIN HCL [Glucophage] 1,000 mg PO BID #152 tab 02/12/18 Allergies Allergy/AdvReac Type Severity Reaction Status Date / Time No Known Allergies Allergy Verified 06/03/19 10:12 Review of Systems ROS Other: All systems not noted in ROS Statement are negative. <Jaclyn Rich - Last Filed: 06/03/19 11:13> ROS Other: All systems not noted in ROS Statement are negative. <Edison Bernal - Last Filed: 06/03/19 11:46> ROS Statement: Those systems with pertinent positive or pertinent negative responses have been documented in the HPI. Past Medical History Past Medical History: Dementia, Diabetes Mellitus, Hyperlipidemia, Hypertension, Prostate Disorder History of Any Multi-Drug Resistant Organisms: None Reported Past Surgical History: Appendectomy, Cholecystectomy Past Psychological History: Depression Smoking Status: Former smoker Past Alcohol Use History: None Reported Past Drug Use History: None Reported - Past Family History Mother Family Medical History: Diabetes Mellitus Father History Unknown: Yes <Jaclyn Rich - Last Filed: 06/03/19 11:13> General Exam Limitations: no limitations <Jaclyn Rich - Last Filed: 06/03/19 11:13> - General Exam Comments Initial Comments: GENERAL: Well-appearing, well-nourished and in no acute distress. HEAD: Atraumatic, normocephalic. EYES: Pupils equal round and reactive to light, extraocular movements intact, sclera anicteric, conjunctiva are normal. ENT: TMs normal, nares patent, oropharynx clear without exudates. Moist mucous membranes. NECK: Normal range of motion, supple without lymphadenopathy or JVD. LUNGS: Breath sounds clear to auscultation bilaterally and equal. No wheezes rales or rhonchi. HEART: Regular rate and rhythm without murmurs, rubs or gallops. ABDOMEN: Soft, nontender, normoactive bowel sounds. No guarding, no rebound. No masses appreciated. : Deferred EXTREMITIES: Normal range of motion, no pitting or edema. No clubbing or cyanosis. No pain with palpation of the cervical, thoracic, lumbar spine. No pain of the paraspinals. Patient has full trunk range of motion. NEUROLOGICAL: Cranial nerves II through XII grossly intact. Normal speech, normal gait. PSYCH: Normal mood, normal affect. SKIN: Warm, Dry, normal turgor, no rashes or lesions noted. (Jaclyn Rich) Course <Edison Bernal - Last Filed: 06/03/19 11:46> Vital Signs 06/03/19 10:12 Temperature 98 F Pulse Rate 87 Respiratory 18 Rate Blood Pressure 114/60 O2 Sat by Pulse 92 L Oximetry - Reevaluation(s) Reevaluation #1: 06/03/19 11:46 PA supervision: I proceeded [id number] evaluation the patient he did present with complaints this back pain the workup thus far is negative I do agree with the assessment and plan patient be discharged after follow-up with his family doctor. I did discuss this with the patient's family. (Edison Bernal) Medical Decision Making <Jaclyn Rich - Last Filed: 06/03/19 11:13> - Medical Decision Making Patient is a 79-year-old male presenting with thoracic intermittent back pain 3-4 weeks. Patient denies any injuries or trauma to the back. Patient has history dementia. X-rays reveal no acute fractures or dislocations. It was discussed with patient his pain is most likely from a sitting in a chair and falling asleep hunched over. Patient will attempt to use heat to the area as well as not using that position for sleep. Patient and are in agreement with this plan of care. Patient is stable for discharge at this time. Patient was discussed with Dr. Bernal who agrees this plan of care. (Jaclyn Rich) Disposition Is patient prescribed a controlled substance at d/c from ED?: No <Jaclyn Rich - Last Filed: 06/03/19 11:13> <Edison Bernal - Last Filed: 06/03/19 11:46> Clinical Impression: Thoracic back pain Disposition: HOME SELF-CARE Condition: Stable Instructions (If sedation given, give patient instructions): Back Pain (ED) Additional Instructions: Please return to the Emergency Department if symptoms worsen or any other concerns. May use Tylenol for pain. Also try heat to the area and avoid sleeping in a slouched position. Referrals: Franco Tracey DO [Primary Care Provider] - 1-2 days
== END 2019-06-03 11:46 | disposition home or self-care (01) ==
LOC: EC 10:02
DX: M54.6 Pain in thoracic spine (principal); F03.90 Unspecified dementia, unspecified severity, without behavioral disturbance, psychotic disturbance, mood disturbance, and anxiety; E11.9 Type 2 diabetes mellitus without complications; F32.9 Major depressive disorder, single episode, unspecified; Z79.4 Long term (current) use of insulin; Z79.899 Other long term (current) drug therapy
CPT/HCPCS: 72070; 99283

== ENCOUNTER 2019-07-13 04:42 | Inpatient (IN) | payer MEDICARE ==
--- NOTE | 2019-07-13 05:05 | ED ---
Altered Mental Status HPI - General Chief Complaint: Altered Mental Status Stated Complaint: Neuro Deficit Time Seen by Provider: 07/13/19 04:46 Source: family, EMS Mode of arrival: EMS Limitations: no limitations - History of Present Illness Initial Comments: this patient is a 79-year-old man who presents to be evaluated for possible stroke. The patient reportedly has history of dementia, and family found him wandering around the house this morning around 4 AM. When he sat down and he appeared to be leaning to his left side. He was last seen around 10 PM and was normal. The patient denies any complaints when I interview him. He is not having headache, chest or abdominal pain. No dyspnea. MD Complaint: altered mental status -: hour(s) Severity: moderate - Related Data Home Medications Medication Instructions Recorded Confirmed sitaGLIPtin PHOSPHATE [Januvia] 100 mg PO DAILY 04/25/18 01/19/19 Divalproex ER [Depakote ER] 500 mg PO HS 01/19/19 01/19/19 Insulin Detemir (Levemir) [Levemir] See Protocol SQ DAILY 01/19/19 01/19/19 Previous Rx's Medication Instructions Recorded Atorvastatin [Lipitor] 80 mg PO HS #28 tab 02/12/18 Donepezil HCl [Aricept] 10 mg PO DAILY #28 tablet 02/12/18 Lisinopril [Zestril] 2.5 mg PO DAILY #28 tab 02/12/18 Memantine [Namenda] 5 mg PO DAILY #28 tab 02/12/18 OLANZapine [ZyPREXA] 5 mg PO BID #56 tab 02/12/18 glipiZIDE [Glucotrol] 5 mg PO AC-LUNCH #28 tab 02/12/18 metFORMIN HCL [Glucophage] 1,000 mg PO BID #152 tab 02/12/18 Allergies Allergy/AdvReac Type Severity Reaction Status Date / Time No Known Allergies Allergy Verified 06/03/19 10:12 Review of Systems ROS Statement: Those systems with pertinent positive or pertinent negative responses have been documented in the HPI. ROS Other: All systems not noted in ROS Statement are negative. Constitutional: Denies: fever, weakness Eyes: Denies: vision change Respiratory: Denies: cough, dyspnea Cardiovascular: Denies: chest pain, syncope Gastrointestinal: Denies: abdominal pain, vomiting Musculoskeletal: Denies: back pain Neurological: Denies: headache, weakness, numbness Past Medical History Past Medical History: Dementia, Diabetes Mellitus, Hyperlipidemia, Hypertension, Prostate Disorder History of Any Multi-Drug Resistant Organisms: None Reported Past Surgical History: Appendectomy, Cholecystectomy Past Psychological History: Depression Smoking Status: Former smoker Past Alcohol Use History: None Reported Past Drug Use History: None Reported - Past Family History Mother Family Medical History: Diabetes Mellitus Father History Unknown: Yes General Exam Limitations: no limitations General appearance: alert, in no apparent distress Head exam: Present: atraumatic, normocephalic Eye exam: Present: normal appearance, PERRL, EOMI. Absent: scleral icterus, conjunctival injection ENT exam: Present: normal oropharynx Neck exam: Present: normal inspection Respiratory exam: Present: normal lung sounds bilaterally. Absent: respiratory distress, wheezes, rales, rhonchi, stridor Cardiovascular Exam: Present: regular rate, normal rhythm, systolic murmur (.). Absent: diastolic murmur, rubs, gallop GI/Abdominal exam: Present: soft. Absent: distended, tenderness, guarding, gary ound, rigid Extremities exam: Present: normal inspection, normal capillary refill. Absent: pedal edema, calf tenderness Back exam: Present: normal inspection. Absent: CVA tenderness (R), CVA tenderness (L) Neurological exam: Present: alert, CN II-XII intact. Absent: oriented X3 (patient is oriented to person and place but did not know the date.), motor sensory deficit Skin exam: Present: warm, dry, intact, normal color. Absent: rash Course Vital Signs 07/13/19 07/13/19 07/13/19 04:43 06:58 07:08 Temperature 99.1 F 99.1 F Pulse Rate 91 82 82 Respiratory 18 18 18 Rate Blood Pressure 107/58 131/62 117/63 O2 Sat by Pulse 98 98 97 Oximetry Medical Decision Making - Lab Data Result diagrams: 07/13/19 04:50 07/13/19 04:50 Lab Results 07/13/19 07/13/19 07/13/19 Range/Units 04:50 04:50 04:50 WBC 8.3 (3.8-10.6) k/uL RBC 3.64 L (4.30-5.90) m/uL Hgb 10.3 L (13.0-17.5) gm/dL Hct 31.0 L (39.0-53.0) % MCV 85.3 (80.0-100.0) fL MCH 28.2 (25.0-35.0) pg MCHC 33.0 (31.0-37.0) g/dL RDW 13.4 (11.5-15.5) % Plt Count 236 (150-450) k/uL Neutrophils % 84 % Lymphocytes % 8 % Monocytes % 6 % Eosinophils % 0 % Basophils % 0 % Neutrophils # 6.9 (1.3-7.7) k/uL Lymphocytes # 0.6 L (1.0-4.8) k/uL Monocytes # 0.5 (0-1.0) k/uL Eosinophils # 0.0 (0-0.7) k/uL Basophils # 0.0 (0-0.2) k/uL PT 10.8 (9.0-12.0) sec INR 1.0 (<1.2) APTT 26.2 (22.0-30.0) sec Sodium 137 (137-145) mmol/L Potassium 5.7 H (3.5-5.1) mmol/L Chloride 105 (98-107) mmol/L Carbon Dioxide 22 (22-30) mmol/L Anion Gap 10 mmol/L BUN 35 H (9-20) mg/dL Creatinine 1.07 (0.66-1.25) mg/dL Est GFR (CKD-EPI)AfAm 77 (>60 ml/min/1.73 sqM) Est GFR (CKD-EPI)NonAf 66 (>60 ml/min/1.73 sqM) Glucose 285 H (74-99) mg/dL Calcium 9.6 (8.4-10.2) mg/dL Total Bilirubin 0.4 (0.2-1.3) mg/dL AST 21 (17-59) U/L ALT 21 (4-49) U/L Alkaline Phosphatase 103 (38-126) U/L Troponin I (0.000-0.034) ng/mL Total Protein 6.6 (6.3-8.2) g/dL Albumin 3.8 (3.5-5.0) g/dL Urine Color Urine Appearance (Clear) Urine pH (5.0-8.0) Ur Specific Surveyor (1.001-1.035) Urine Protein (Negative) Urine Glucose (UA) (Negative) Urine Ketones (Negative) Urine Blood (Negative) Urine Nitrite (Negative) Urine Bilirubin (Negative) Urine Urobilinogen (<2.0) mg/dL Ur Leukocyte Esterase (Negative) 07/13/19 07/13/19 Range/Units 04:50 05:15 WBC (3.8-10.6) k/uL RBC (4.30-5.90) m/uL Hgb (13.0-17.5) gm/dL Hct (39.0-53.0) % MCV (80.0-100.0) fL MCH (25.0-35.0) pg MCHC (31.0-37.0) g/dL RDW (11.5-15.5) % Plt Count (150-450) k/uL Neutrophils % % Lymphocytes % % Monocytes % % Eosinophils % % Basophils % % Neutrophils # (1.3-7.7) k/uL Lymphocytes # (1.0-4.8) k/uL Monocytes # (0-1.0) k/uL Eosinophils # (0-0.7) k/uL Basophils # (0-0.2) k/uL PT (9.0-12.0) sec INR (<1.2) APTT (22.0-30.0) sec Sodium (137-145) mmol/L Potassium (3.5-5.1) mmol/L Chloride (98-107) mmol/L Carbon Dioxide (22-30) mmol/L Anion Gap mmol/L BUN (9-20) mg/dL Creatinine (0.66-1.25) mg/dL Est GFR (CKD-EPI)AfAm (>60 ml/min/1.73 sqM) Est GFR (CKD-EPI)NonAf (>60 ml/min/1.73 sqM) Glucose (74-99) mg/dL Calcium (8.4-10.2) mg/dL Total Bilirubin (0.2-1.3) mg/dL AST (17-59) U/L ALT (4-49) U/L Alkaline Phosphatase (38-126) U/L Troponin I <0.012 (0.000-0.034) ng/mL Total Protein (6.3-8.2) g/dL Albumin (3.5-5.0) g/dL Urine Color Yellow Urine Appearance Clear (Clear) Urine pH 5.5 (5.0-8.0) Ur Specific Surveyor 1.023 (1.001-1.035) Urine Protein Negative (Negative) Urine Glucose (UA) 3+ H (Negative) Urine Ketones 1+ H (Negative) Urine Blood Negative (Negative) Urine Nitrite Negative (Negative) Urine Bilirubin Negative (Negative) Urine Urobilinogen <2.0 (<2.0) mg/dL Ur Leukocyte Esterase Negative (Negative) - EKG Data -: EKG Interpreted by De EKG shows normal: sinus rhythm, axis (normal), intervals (normal), QRS complexes (normal), ST-T waves (normal) Rate: normal (Rate 86 bpm) Interpretation: normal EKG Disposition Clinical Impression: Pneumonia Disposition: ADMITTED IP TO THIS [facility] Condition: Fair Instructions (If sedation given, give patient instructions): Altered Mental Status (ED) Is patient prescribed a controlled substance at d/c from ED?: No Referrals: Franco Tracey DO [Primary Care Provider] - 1-2 days
[2019-07-13 05:07] LABS: Basophils % (A) 0 %; Eosinophils % (A) 0 %; HGB 10.3 gm/dL (13.0-17.5); Lymphocytes # (A) 0.6 k/uL (1.0-4.8); Lymphocytes % (A) 8 %; MCH 28.2 pg (25.0-35.0); MCV 85.3 fL (80.0-100.0); Mean Platelet Volume 8.5; Monocytes # (A) 0.5 k/uL (0-1.0); Monocytes % (A) 6 %; Neutrophils # (A) 6.9 k/uL (1.3-7.7); Neutrophils % (A) 84 %; Platelet Count 236 k/uL (150-450); RBC 3.64 m/uL (4.30-5.90); RDW 13.4 % (11.5-15.5); WBC 8.3 k/uL (3.8-10.6)
--- NOTE | 2019-07-13 05:14 | CT ---
EXAM: CT Head Without Intravenous Contrast CLINICAL HISTORY: ITS.REASON CT Reason: Neuro deficit, acute, stroke suspected TECHNIQUE: Axial computed tomography images of the head/brain without intravenous contrast. CTDI is 49 mGy and DLP is 1109 mGy-cm. This CT exam was performed using one or more of the following dose reduction techniques: automated exposure control, adjustment of the mA and/or kV according to patient size, and/or use of iterative reconstruction technique. COMPARISON: No relevant prior studies available. FINDINGS: Brain: No hemorrhage, herniation, or mass effect. Chronic microvascular ischemic changes. Ventricles: No hydrocephalus. Moderate cerebral volume loss. Bones/joints: Unremarkable. Soft tissues: Unremarkable. Sinuses: Trace bilateral maxillary sinus air-fluid levels. Mastoid air cells: Clear. IMPRESSION: No acute hemorrhage, hydrocephalus, or mass effect. Correlate with maxillary sinusitis.
[2019-07-13 05:16] LABS: Partial Thromboplastin Time 26.2 sec (22.0-30.0); Prothrombin Time 10.8 sec (9.0-12.0)
[2019-07-13 05:17] LABS: Albumin 3.8 g/dL (3.5-5.0); Calcium 9.6 mg/dL (8.4-10.2); Potassium 5.7 mmol/L (3.5-5.1); Total Bilirubin 0.4 mg/dL (0.2-1.3); Total Protein 6.6 g/dL (6.3-8.2)
[2019-07-13 05:24] LABS: Appearance,Urine Clear (Clear); Bilirubin,Urine Negative (Negative); Blood,Urine Negative (Negative); Color,Urine Yellow; Glucose,Urine (UA) 3+ (Negative); Ketones,Urine 1+ (Negative); Leukocyte Esterase,Urine Negative (Negative); Nitrite,Urine Negative (Negative); PH, Urine 5.5 (5.0-8.0); Protein,Urine Negative (Negative); Specific Gravity,Urine 1.023 (1.001-1.035); Urobilinogen,Urine <2.0 mg/dL (<2.0)
--- NOTE | 2019-07-13 05:44 | XR ---
EXAM: XR Chest, 1 View CLINICAL HISTORY: ITS.REASON XR Reason: altered mental status TECHNIQUE: Frontal view of the chest. COMPARISON: No relevant prior studies available. IMPRESSION: Cardiomegaly. Left lower lobe opacity, possibly aspiration/infection versus atelectasis. Possible trace left pleural effusion.
[2019-07-13] MEDS ORDERED: PNEUMONIA PROTOCOL UTILIZED 1 EACH MISC PO PRN (07:03)
[2019-07-13] MEDS: AZITHROMYCIN 500 MG TAB PO SCH (09:09)
[2019-07-13] MEDS: DONEPEZIL 10 MG TAB PO SCH (09:17)
[2019-07-13] MEDS: metFORMIN 500 MG TAB PO SCH ×2 (09:17→21:05)
[2019-07-13] MEDS: LISINOPRIL 2.5 MG TAB PO SCH (09:17)
[2019-07-13] MEDS: MEMANTINE 5 MG TAB PO SCH (09:17)
[2019-07-13] MEDS: LINAGLIPTIN 5 MG TABLET PO SCH (09:17)
[2019-07-13] MEDS: OLANZapine 5 MG TAB PO SCH ×2 (09:17→21:04)
[2019-07-13 11:38] LABS: Glucose,Whole Blood 255 mg/dL (75-99)
[2019-07-13] MEDS: glipiZIDE 5 MG TAB PO SCH (11:58)
--- NOTE | 2019-07-13 13:21 | P.HPIM ---
History of Present Illness H&P Date: 07/13/19 Chief Complaint: increased lethargy this is a 79-year-old gentleman with history of dementia, diabetes mellitus, hyperlipidemia, hypertension, prostate disorder, depression, former nicotine dependence and multiple other medical issues, presented to the ER with worsening lethargy,wandering around early this morning,appeared to be leaning more to the left side upon sitting,as per . Patient was last seen around 10 PM, sitting upright,normal. Speech appropriate,generalized weakness.Patient denies chest pain, palpitations or increased shortness of breath. Denies headache, lightheadedness, dizziness or focal deficits.denies numbness.Vital signs stable with O2 sats of high 90s on room air.T-max 99.1,normal WBC, hemoglobin 10.3. BUN 35, creatinine 1.07, potassium 5.7.glucose on admission 285. Brain CT reporting no acute hemorrhage, hydrocephalus or mass effect, bi lateralmaxillary sinusitis. chest x-ray reporting left lower lobe opacity, possibly aspiration/infection , atelectasis. Trace left pleural effusion. EKG reporting normal sinus rhythm,troponins negative 1 urine 3+ glucose, 1+ ketones Zithromycin and Rocephin initiated. Review of Systems ROS Statement: Those systems with pertinent positive or pertinent negative responses have been documented in the HPI. ROS Other: All systems not noted in ROS Statement are negative. Past Medical History Past Medical History: Dementia, Diabetes Mellitus, Hyperlipidemia, Hypertension, Prostate Disorder Additional Past Medical History / Comment(s): "right carotid artery cleaned out".. cataracts History of Any Multi-Drug Resistant Organisms: None Reported Past Surgical History: Appendectomy, Cholecystectomy Past Psychological History: Depression Smoking Status: Former smoker Past Alcohol Use History: None Reported Past Drug Use History: None Reported - Past Family History Mother Family Medical History: Diabetes Mellitus Father History Unknown: Yes Medications and Allergies Home Medications Medication Instructions Recorded Confirmed Type Atorvastatin [Lipitor] 80 mg PO HS #28 tab 02/12/18 07/13/19 Rx Donepezil HCl [Aricept] 10 mg PO DAILY #28 tablet 02/12/18 07/13/19 Rx Lisinopril [Zestril] 2.5 mg PO DAILY #28 tab 02/12/18 07/13/19 Rx Memantine [Namenda] 5 mg PO DAILY #28 tab 07/18/18 12/16/19 Rx OLANZapine [ZyPREXA] 5 mg PO BID #56 tab 02/12/18 07/13/19 Rx glipiZIDE [Glucotrol] 5 mg PO AC-LUNCH #28 tab 02/12/18 07/13/19 Rx sitaGLIPtin PHOSPHATE [Januvia] 100 mg PO DAILY 04/25/18 07/13/19 History Divalproex ER [Depakote ER] 500 mg PO HS 01/19/19 07/13/19 History Insulin Detemir (Levemir) [Levemir] 30 unit SQ HS 07/13/19 07/13/19 History metFORMIN HCL 1,000 mg PO BID 07/13/19 07/13/19 History Allergies Allergy/AdvReac Type Severity Reaction Status Date / Time No Known Allergies Allergy Verified 07/13/19 07:13 Physical Exam Vitals: Vital Signs Temp Pulse Pulse Resp BP BP Pulse Ox 07/13/19 08:23 98.0 F 83 16 128/71 97 07/13/19 07:59 99.1 F 88 18 145/69 98 07/13/19 07:08 99.1 F 82 18 117/63 97 07/13/19 06:58 82 18 131/62 98 07/13/19 04:43 99.1 F 91 18 107/58 98 Intake and Output 07/12/19 07/13/19 07/13/19 22:59 06:59 14:59 Other: Voiding Method Incontinent Weight 58.967 kg 58.967 kg PHYSICAL EXAM: VITAL SIGNS: [as above] GENERAL: lying in bed, no acute distress HEENT: Conjunctivae normal. eyes normal. NECK: No JVD. No thyroid enlargement. No LNs CARDIOVASCULAR: S1, S2 regular.. No murmur RESPIRATION: Breath sounds diminished in the bases. No rhonchi or crackles. No bronchial breathing. ABDOMEN: Soft, nontender . No guarding. no masses palpable. No ascites, No hepatosplenomegaly.Bowel sounds heard. LEGS: No edema. no swelling PSYCHIATRY: Alert and oriented X2,disoriented to date, mood and affect normal. NERVOUS SYSTEM: Cranial N 2-12 grossly normal. Moves all 4 limbs. Diffuse weakness No focal deficits. Strength and sensation grossly intact. Skin: no lesions, no rash Joints: No active swelling. No inflammation. Lymphatic system. No LN neck axilla or groin. Results CBC & Chem 7: 07/13/19 04:50 07/13/19 04:50 Labs: Abnormal Lab Results - Last 24 Hours (Table) 07/13/19 07/13/19 07/13/19 Range/Units 04:50 04:50 05:15 RBC 3.64 L (4.30-5.90) m/uL Hgb 10.3 L (13.0-17.5) gm/dL Hct 31.0 L (39.0-53.0) % Lymphocytes # 0.6 L (1.0-4.8) k/uL Potassium 5.7 H (3.5-5.1) mmol/L BUN 35 H (9-20) mg/dL Glucose 285 H (74-99) mg/dL Urine Glucose (UA) 3+ H (Negative) Urine Ketones 1+ H (Negative) Thrombosis Risk Factor Assmnt - Choose All That Apply Each Risk Factor Represents 3 Points: Age 75 years or older Thrombosis Risk Factor Assessment Total Risk Factor Score: 3 Thrombosis Risk Factor Assessment Level: Moderate Risk Assessment and Plan Assessment: acute exacerbation of advancing Parkinson's Disease,with advancing dementia,Pos sible acute TIA acute left lower lobe pneumonia, community-acquired, possibly aspiration atelectasis dehydration hyperkalemia secondary to the above Mild Acute renal failure secondary to dehydration. Baseline creatinine around 0.9. Chronic renal failure, stage II anemia, possibly chronic secondary to renal failure plan: Continue on current medication regime ,monitoring and symptomatic treatmen t. Neurology consulted. Strict aspiration precautions ordered. Speech therapy consulted. low potassium diet. Maintain IV antibiotics of Zithromax. close monitoring of electrolytes and renal function with repeat labs ordered for a.m. Rocephin.PT/OT consulted. Social work consulted for potential subacute rehab/ECF placement.plan of care discussed at bedside with both patient and , verbalize understanding of, and agreement with. Questions and concerns addressed. The impression and plan of care has been dictated as directed. : I performed a history and examination of this patient, discussed the same with the dictator. I agree with the dictator's note ,documented as a scribe. Any additional findings or plans will be noted.
[2019-07-13] MEDS: ASPIRIN 81 MG PO SCH (13:29)
[2019-07-13 16:42] LABS: Glucose,Whole Blood 220 mg/dL (75-99)
[2019-07-13] MEDS: ATORVASTATIN 80 MG TAB PO SCH (21:04)
[2019-07-13] MEDS: DIVALPROEX ER 500 MG TAB.ER.24H PO SCH (21:04)
[2019-07-13 21:24] LABS: Glucose,Whole Blood 123 mg/dL (75-99)
[2019-07-13] MEDS: INSULIN DETEMIR (LEVEMIR) 100 UNIT/ML SYR SQ SCH (21:29)
[2019-07-14 07:03] LABS: Glucose,Whole Blood 54 mg/dL (75-99)
[2019-07-14 07:26] LABS: Glucose,Whole Blood 89 mg/dL (75-99)
[2019-07-14] MEDS: ASPIRIN 81 MG PO SCH (07:59)
[2019-07-14] MEDS: AZITHROMYCIN 500 MG TAB PO SCH (07:59)
[2019-07-14] MEDS: LINAGLIPTIN 5 MG TABLET PO SCH (08:00)
[2019-07-14] MEDS: MEMANTINE 5 MG TAB PO SCH (08:00)
[2019-07-14] MEDS: metFORMIN 500 MG TAB PO SCH (08:00)
[2019-07-14] MEDS: DONEPEZIL 10 MG TAB PO SCH (08:00)
[2019-07-14] MEDS: OLANZapine 5 MG TAB PO SCH ×2 (08:00→11:47)
[2019-07-14] MEDS: LISINOPRIL 2.5 MG TAB PO SCH (08:00)
[2019-07-14 08:51] LABS: Basophils % (A) 0 %; Eosinophils # (A) 0.1 k/uL (0-0.7); Eosinophils % (A) 1 %; HCT 34.3 % (39.0-53.0); HGB 11.1 gm/dL (13.0-17.5); Hypochromasia Slight; Lymphocytes # (A) 0.9 k/uL (1.0-4.8); Lymphocytes % (A) 10 %; MCH 28.2 pg (25.0-35.0); MCHC 32.4 g/dL (31.0-37.0); MCV 87.2 fL (80.0-100.0); Mean Platelet Volume 8.6; Monocytes # (A) 0.5 k/uL (0-1.0); Monocytes % (A) 6 %; Neutrophils # (A) 7.3 k/uL (1.3-7.7); Neutrophils % (A) 82 %; Platelet Count 256 k/uL (150-450); RBC 3.93 m/uL (4.30-5.90); RDW 13.2 % (11.5-15.5); WBC 8.9 k/uL (3.8-10.6)
[2019-07-14 09:10] LABS: African American GFR (CKD) >90 (>60 ml/min/1.73 sqM); Anion Gap 16 mmol/L; Blood Urea Nitrogen 18 mg/dL (9-20); Calcium 9.7 mg/dL (8.4-10.2); Carbon Dioxide 23 mmol/L (22-30); Chloride 102 mmol/L (98-107); Glucose 162 mg/dL (74-99); Non-African American GFR(CKD) 85 (>60 ml/min/1.73 sqM); Potassium 5.3 mmol/L (3.5-5.1); Sodium 141 mmol/L (137-145)
[2019-07-14] MEDS ORDERED: IPRATROPIUM-ALBUTEROL 3 ML NEB INHALATION PRN (10:18)
--- NOTE | 2019-07-14 10:22 | P.PN ---
Subjective Progress Note Date: 07/14/19 this is a 79-year-old gentleman with history of dementia, diabetes mellitus, hyperlipidemia, hypertension, prostate disorder, depression, former nicotine dependence and multiple other medical issues, presented to the ER with worsening lethargy,wandering around early this morning,appeared to be leaning more to the left side upon sitting,as per . Patient was last seen around 10 PM, sitting upright,normal. Speech appropriate,generalized weakness.Patient denies chest pain, palpitations or increased shortness of breath. Denies headache, lightheadedness, dizziness or focal deficits.denies numbness.Vital signs stable with O2 sats of high 90s on room air.T-max 99.1,normal WBC, hemoglobin 10.3. BUN 35, creatinine 1.07, potassium 5.7.glucose on admission 285. Brain CT reporting no acute hemorrhage, hydrocephalus or mass effect, bilateralmaxillary sinusitis. chest x-ray reporting left lower lobe opacity, possibly aspiration/infection , atelectasis. Trace left pleural effusion. EKG reporting normal sinus rhythm,troponins negative 1 urine 3+ glucose, 1+ ketones 07/14/2019 evaluated by speech therapy reporting no overt signs/symptoms of aspiration with varying consistencies.neurology consult in place, recommendations pending.PT/OT evaluation pending.afebrile,normal WBCvital signs stable, maintaining O2 sats in the 90s on room air. maintained on Zithromax, Rocephin. Reports nonproductive cough.potassium 5.3.hemoglobin 11.1.good diet intake, consuming 100% of breakfast. Denies nausea vomiting or diarrhea.denies chest pain or palpitations.denies increased shortness of breath. Objective - Vital Signs Vital signs: Vital Signs Temp 97.5 F L 07/14/19 06:31 Pulse 79 07/14/19 06:31 Resp 15 07/14/19 06:31 BP 105/57 07/14/19 06:31 Pulse Ox 97 07/14/19 06:31 Intake & Output 07/13/19 07/14/19 07/14/19 18:59 06:59 18:59 Intake Total 1280 100 Output Total 675 Balance 1280 -575 Weight 58.967 kg Intake: Oral 1280 100 Output: Urine 675 Other: Voiding Method Incontinent Incontinent # Voids 2 - Exam VITAL SIGNS: [as above] GENERAL: sitting up at bedside, no acute distress HEENT: Conjunctivae normal. eyes normal. NECK: No JVD. No thyroid enlargement. No LNs CARDIOVASCULAR: S1, S2 regular. No murmur RESPIRATION: Breath sounds diminished in the bases. scattered rhonchi or crackles. fine expiratory wheezing ABDOMEN: Soft, nontender . No guarding. no masses palpable. No ascites, No hepatosplenomegaly.Bowel sounds heard. LEGS: No edema. no swelling PSYCHIATRY: Alert and oriented X2,disoriented to date, mood and affect normal. NERVOUS SYSTEM: Cranial N 2-12 grossly normal. Moves all 4 limbs. Diffuse weakness No focal deficits. Strength and sensation grossly intact. Skin: no rash - Labs CBC & Chem 7: 07/14/19 08:25 07/14/19 08:25 Labs: Abnormal Lab Results - Last 24 Hours (Table) 07/13/19 07/13/19 07/13/19 Range/Units 11:33 16:35 21:20 RBC (4.30-5.90) m/uL Hgb (13.0-17.5) gm/dL Hct (39.0-53.0) % Lymphocytes # (1.0-4.8) k/uL Potassium (3.5-5.1) mmol/L Glucose (74-99) mg/dL POC Glucose (mg/dL) 255 H 220 H 123 H (75-99) mg/dL 07/14/19 07/14/19 07/14/19 Range/Units 06:53 08:25 08:25 RBC 3.93 L (4.30-5.90) m/uL Hgb 11.1 L (13.0-17.5) gm/dL Hct 34.3 L (39.0-53.0) % Lymphocytes # 0.9 L (1.0-4.8) k/uL Potassium 5.3 H (3.5-5.1) mmol/L Glucose 162 H (74-99) mg/dL POC Glucose (mg/dL) 54 L (75-99) mg/dL Assessment and Plan Assessment: acute exacerbation of advancing Parkinson's Disease,with advancing dementia,Possible acute TIA. acute left lower lobe pneumonia, community-acquired, possibly aspiration atelectasis dehydration hyperkalemia secondary to the above Mild Acute renal failure secondary to dehydration. Baseline creatinine around 0.9. Chronic renal failure, stage II anemia, possibly chronic secondary to renal failure plan: Continue on current medication regime ,monitoring and symptomatic treatment. Neurology consult in place, recommendations pending. continue antibiotics of Zithromax. low potassium diet.close monitoring of electrolytes and renal function with repeat labs ordered for a.m. up in chair for meals.PT/OT evaluation pending. Social work assisting with discharge planning to subacute rehab/ECF. The impression and plan of care has been dictated as directed. : I performed a history and examination of this patient, discussed the same with the dictator. I agree with the dictator's note ,documented as a scribe. Any additional findings or plans will be noted.
[2019-07-14 11:47] LABS: Glucose,Whole Blood 158 mg/dL (75-99)
[2019-07-14] MEDS: IPRATROPIUM-ALBUTEROL 3 ML NEB INHALATION SCH ×3 (12:20→19:17)
[2019-07-14] MEDS: glipiZIDE 5 MG TAB PO SCH (12:38)
[2019-07-14 13:43] VITALS: BMI 19.9
[2019-07-14 16:46] LABS: Glucose,Whole Blood 282 mg/dL (75-99)
--- NOTE | 2019-07-14 19:07 | P.CNNES ---
History of Present Illness Consult date: 07/14/19 Reason for Consult: TIA/Parkinson's Exacerbation Chief complaint: Leaning to his L side History of Present Illness: HISTORY OF PRESENT ILLNESS: Thank you for allowing me to evaluate Mr. Blaze Gomez. Mr. Gomez is a 79 year-old man with PMhx of dementia, diabetes, HLD, HTN, prostate disorder, depression, consulting Neurology for concern for TIA. No family at bedside, but per ED note, patient's family had reported that they noticed patient leaning towards the L side and there was concern for stroke. No obvious weakness noted. PAST MEDICAL HISTORY: dementia, diabetes, HLD, HTN, prostate disorder, depression PAST SURGICAL HISTORY: appendectomy, cholecystectomy HOME MEDICATIONS: Januvia, Depakote, insulin, atorvastatin, donepezil, lisinopril, memantine, olanzapine, glipizide, metformin ALLERGIES: NKDA SOCIAL HISTORY: Former smoker REVIEW OF SYSTEMS: The 14 systems are reviewed and no additional points are identified compared to the review of systems documented history and physical PHYSICAL EXAMINATION: VITAL SIGNS: T 97.5 HR 79 RR 15 O2 sat 105/57 O2 sat 97% on RA GEN.: NAD, moderately irritable but mostly cooperative HEENT: NCAT, sclera without icterus NECK: Supple SKIN AND EXTREMITIES: Warm to touch, no edema NEURO: MENTAL STATUS: Patient alert and oriented to name only. Speech fluent, able to name with some redirection and repeat, following all commands readily. No right and left disorientation, neglect. CRANIAL NERVES II THROUGH XII: II: Pupils are equal and reactive to light symmetrically. Blinks to threat bilaterally. III, IV, : No ptosis. Extraocular movements full. No nystagmus. V: Facial sensation intact from V1-3. VII. No clear facial asymmetry. IX, X: Symmetric palate elevation. XI: Shoulder shrug intact. XII: Tongue midline without fasciculation or atrophy. MOTOR: Normal bulk/tone. No pronator drift or tremor. Strength is 4+/5 in b/l UE. Patient is able to keep b/l LE against gravity and also against some resistance. SENSORY: Intact to light touch in all 4 extremities. REFLEXES: 2+ throughout. Toes are downgoing. COORDINATION: Finger to nose intact. No dysmetria. GAIT: Patient with difficulty sitting up but able to stay seated once he is sitting. Unable to stand on his own and unable to place himself back in his bed. DIAGNOSTIC TESTING: LABORATORY: WBC 8.9 Hgb 11.1 Platelet 256 Na 141 K 5.3 Cl 102 CO2 23 BUN 18 Cr 0.81 Glucose 162 IMAGING: CT head w/o contrast 07/13/19 No acute hemorrhage, hydrocephalus, or mass effect. CXR 07/13/19: Cardiomegaly. LLL opacity, possible aspiration/infection vs. atelectasis ASSESSMENT: 79 year-old man with PMhx of dementia, diabetes, HLD, HTN, prostate disorder, depression, consulting Neurology for concern for TIA. Patient with history of dementia, unable to obtain 100% accurate neuro exam, but patient with difficulty sitting up and standing. No focal deficits at this time, but patient with risk factors for stroke. Will first obtain MRI brain w/o contrast, and if there's any indication for further stroke management. RECOMMENDATIONS: 1. MRI brain w/o contrast 2. If MRI brain negative, Neurology will sign off. 3. continue meds for dementia 4. Patient needs follow up with his outpatient neurologist within 2-3 weeks of discharge. Past Medical History Past Medical History: Dementia, Diabetes Mellitus, Hyperlipidemia, Hypertension, Prostate Disorder Additional Past Medical History / Comment(s): "right carotid artery cleaned out".. cataracts History of Any Multi-Drug Resistant Organisms: None Reported Past Surgical History: Appendectomy, Cholecystectomy Past Psychological History: Depression Smoking Status: Former smoker Past Alcohol Use History: None Reported Past Drug Use History: None Reported - Past Family History Mother Family Medical History: Diabetes Mellitus Father History Unknown: Yes Medications and Allergies Home Medications Medication Instructions Recorded Confirmed Type Atorvastatin [Lipitor] 80 mg PO HS #28 tab 02/12/18 07/13/19 Rx Donepezil HCl [Aricept] 10 mg PO DAILY #28 tablet 02/12/18 07/13/19 Rx Lisinopril [Zestril] 2.5 mg PO DAILY #28 tab 02/12/18 07/13/19 Rx Memantine [Namenda] 5 mg PO DAILY #28 tab 02/12/18 07/13/19 Rx OLANZapine [ZyPREXA] 5 mg PO BID #56 tab 02/12/18 07/13/19 Rx glipiZIDE [Glucotrol] 5 mg PO AC-LUNCH #28 tab 02/12/18 07/13/19 Rx sitaGLIPtin PHOSPHATE [Januvia] 100 mg PO DAILY 04/25/18 07/13/19 History Divalproex ER [Depakote ER] 500 mg PO HS 01/19/19 07/13/19 History Insulin Detemir (Levemir) [Levemir] 30 unit SQ HS 07/13/19 07/13/19 History metFORMIN HCL 1,000 mg PO BID 07/13/19 07/13/19 History Allergies Allergy/AdvReac Type Severity Reaction Status Date / Time No Known Allergies Allergy Verified 07/13/19 07:13 Physical Examination - Vital Signs Vital Signs: Vital Signs Temp Pulse Resp BP Pulse Ox 07/14/19 06:31 97.5 F L 79 15 105/57 97 07/13/19 22:02 97.2 F L 72 16 136/63 98 07/13/19 15:41 77 16 07/13/19 13:28 97.7 F 77 16 115/66 99 Intake and Output 07/13/19 07/14/19 07/14/19 22:59 06:59 14:59 Intake Total 740 100 Output Total 375 300 Balance 365 -200 Intake: Oral 740 100 Output: Urine 375 300 Other: Voiding Method Incontinent Incontinent Incontinent # Voids 2 Results - Laboratory Findings CBC and BMP: 07/14/19 08:25 07/14/19 08:25 Abnormal Lab Findings: Abnormal Labs 07/13/19 07/13/19 07/13/19 04:50 04:50 05:15 RBC 3.64 L Hgb 10.3 L Hct 31.0 L Lymphocytes # 0.6 L Potassium 5.7 H BUN 35 H Glucose 285 H POC Glucose (mg/dL) Urine Glucose (UA) 3+ H Urine Ketones 1+ H 07/13/19 07/13/19 07/13/19 11:33 16:35 21:20 RBC Hgb Hct Lymphocytes # Potassium BUN Glucose POC Glucose (mg/dL) 255 H 220 H 123 H Urine Glucose (UA) Urine Ketones 07/14/19 07/14/19 07/14/19 06:53 08:25 08:25 RBC 3.93 L Hgb 11.1 L Hct 34.3 L Lymphocytes # 0.9 L Potassium 5.3 H BUN Glucose 162 H POC Glucose (mg/dL) 54 L Urine Glucose (UA) Urine Ketones
[2019-07-14] MEDS ORDERED: LORazepam 2 MG/ML INJ IV STA (20:15)
[2019-07-14] MEDS: ATORVASTATIN 80 MG TAB PO SCH (21:00)
[2019-07-14] MEDS: QUEtiapine 25 MG TAB PO SCH (21:00)
[2019-07-14] MEDS: DIVALPROEX ER 500 MG TAB.ER.24H PO SCH (21:00)
[2019-07-14 21:53] LABS: Glucose,Whole Blood 193 mg/dL (75-99)
[2019-07-14] MEDS: INSULIN DETEMIR (LEVEMIR) 100 UNIT/ML SYR SQ SCH (22:34)
[2019-07-15] MEDS: metFORMIN 500 MG TAB PO SCH ×2 (01:42→10:00)
[2019-07-15] MEDS: IPRATROPIUM-ALBUTEROL 3 ML NEB INHALATION SCH ×4 (07:06→19:17)
[2019-07-15 07:19] LABS: Glucose,Whole Blood 45 mg/dL (75-99)
[2019-07-15 07:42] LABS: Glucose,Whole Blood 41 mg/dL (75-99)
[2019-07-15 07:42] LABS: Glucose,Whole Blood 46 mg/dL (75-99)
[2019-07-15 08:10] LABS: Glucose,Whole Blood 74 mg/dL (75-99)
[2019-07-15 08:10] LABS: Glucose,Whole Blood 56 mg/dL (75-99)
[2019-07-15] MEDS: DONEPEZIL 10 MG TAB PO SCH (09:55)
[2019-07-15] MEDS: LISINOPRIL 2.5 MG TAB PO SCH (09:55)
[2019-07-15] MEDS: MEMANTINE 5 MG TAB PO SCH (09:55)
[2019-07-15] MEDS: OLANZapine 5 MG TAB PO SCH ×2 (09:55→19:52)
[2019-07-15] MEDS: AZITHROMYCIN 500 MG TAB PO SCH (09:55)
[2019-07-15] MEDS: ASPIRIN 81 MG PO SCH (09:55)
[2019-07-15] MEDS: LINAGLIPTIN 5 MG TABLET PO SCH (10:00)
[2019-07-15 10:05] LABS: Basophils % (A) 0 %; Eosinophils % (A) 1 %; HCT 31.8 % (39.0-53.0); HGB 10.2 gm/dL (13.0-17.5); Lymphocytes # (A) 0.6 k/uL (1.0-4.8); Lymphocytes % (A) 8 %; MCH 27.9 pg (25.0-35.0); MCHC 32.2 g/dL (31.0-37.0); MCV 86.6 fL (80.0-100.0); Mean Platelet Volume 8.4; Monocytes # (A) 0.5 k/uL (0-1.0); Monocytes % (A) 7 %; Neutrophils # (A) 6.3 k/uL (1.3-7.7); Neutrophils % (A) 83 %; Platelet Count 208 k/uL (150-450); RBC 3.67 m/uL (4.30-5.90); RDW 13.6 % (11.5-15.5); WBC 7.5 k/uL (3.8-10.6)
[2019-07-15 10:11] LABS: African American GFR (CKD) >90 (>60 ml/min/1.73 sqM); Anion Gap 11 mmol/L; Blood Urea Nitrogen 14 mg/dL (9-20); Calcium 9.6 mg/dL (8.4-10.2); Carbon Dioxide 26 mmol/L (22-30); Chloride 102 mmol/L (98-107); Glucose 220 mg/dL (74-99); Non-African American GFR(CKD) 82 (>60 ml/min/1.73 sqM); Potassium 4.7 mmol/L (3.5-5.1); Sodium 139 mmol/L (137-145)
[2019-07-15 12:10] LABS: Glucose,Whole Blood 298 mg/dL (75-99)
[2019-07-15] MEDS: INSULIN ASPART (NovoLOG) 100 UNIT/ML VIAL SQ SCH ×3 (12:49→21:55)
--- NOTE | 2019-07-15 12:52 | P.PN ---
Progress Note - Text Progress Note Date: 07/15/19 SUBJECTIVE/INTERVAL EVENTS: No acute overnight events. There are times when patient gets very irritable. at bedside. Discussed with her about future plans. Patient cannot tolerate MRI. Patient, before this episode, was able to walk with walker although he always needed help getting into bed. 's biggest concern at this time is that she cannot take care of the patient. Discussed with about how patient has exam findings that could indicate Parkinsons' disease. Discussed about how Parkinson's medication can cause agitation, manic episodes. would prefer not starting the medication as she doesn't feel that the tremor or stiffness really affects the patient's daily living. PHYSICAL EXAMINATION: VITAL SIGNS: T 97.6 HR 88 RR 20 BP 122/70 O2 sat 96% on RA GEN.: NAD, moderately irritable but mostly cooperative HEENT: NCAT, sclera without icterus NECK: Supple SKIN AND EXTREMITIES: Warm to touch, no edema NEURO: MENTAL STATUS: Patient alert and oriented to name only. Speech fluent, able to name with some redirection and repeat, following all commands readily. No right and left disorientation, neglect. CRANIAL NERVES II THROUGH XII: II: Pupils are equal and reactive to light symmetrically. Blinks to threat bilaterally. III, IV, : No ptosis. Extraocular movements full. No nystagmus. V: Facial sensation intact from V1-3. VII. No clear facial asymmetry. IX, X: Symmetric palate elevation. XI: Shoulder shrug intact. XII: Tongue midline without fasciculation or atrophy. MOTOR: Decreased bulk. Increased tone in b/l UE. Did not notice yesterday, but patient noticed to have pill-rolling tremor intermittently. Strength is 4+/5 in b/l UE. Patient is able to keep b/l LE against gravity and also against some resistance. SENSORY: Intact to light touch in all 4 extremities. REFLEXES: 2+ throughout. Toes are downgoing. COORDINATION: Finger to nose intact. No dysmetria. GAIT: Patient with difficulty sitting up but able to stay seated once he is sitting. Unable to stand on his own and unable to place himself back in his bed. DIAGNOSTIC TESTING: LABORATORY: WBC 8.9 Hgb 11.1 Platelet 256 Na 141 K 5.3 Cl 102 CO2 23 BUN 18 Cr 0.81 Glucose 162 IMAGING: CT head w/o contrast 07/13/19 No acute hemorrhage, hydrocephalus, or mass effect. CXR 07/13/19: Cardiomegaly. LLL opacity, possible aspiration/infection vs. atelectasis ASSESSMENT: 79 year-old man with PMhx of dementia, diabetes, HLD, HTN, prostate disorder, depression, consulting Neurology for concern for TIA. Patient with history of dementia, unable to obtain 100% accurate neuro exam, but patient with difficulty sitting up and standing. No focal deficits at this time, but patient with risk factors for stroke. CT Head with no acute intracranial abnormality finding. RECOMMENDATIONS: 1. continue meds for dementia 2. social work has spoken to extensively. PT recommending rehab. 3. Patient had been seen by neurologist before but stopped going. It would be best for patient to follow up with his outpatient neurologist within 2-3 weeks of discharge. 4. Neurology will sign off at this time. Please feel free to contact Neurology again if with additional questions or concerns.
[2019-07-15 15:22] VITALS: RESP 16
[2019-07-15 16:40] LABS: Glucose,Whole Blood 68 mg/dL (75-99)
[2019-07-15 16:59] LABS: Glucose,Whole Blood 63 mg/dL (75-99)
--- NOTE | 2019-07-15 17:04 | P.PN ---
Subjective Progress Note Date: 07/15/19 this is a 79-year-old gentleman with history of dementia, diabetes mellitus, hyperlipidemia, hypertension, prostate disorder, depression, former nicotine dependence and multiple other medical issues, presented to the ER with worsening lethargy,wandering around early this morning,appeared to be leaning more to the left side upon sitting,as per . Patient was last seen around 10 PM, sitting upright,normal. Speech appropriate,generalized weakness.Patient denies chest pain, palpitations or increased shortness of breath. Denies headache, lightheadedness, dizziness or focal deficits.denies numbness.Vital signs stable with O2 sats of high 90s on room air.T-max 99.1,normal WBC, hemoglobin 10.3. BUN 35, creatinine 1.07, potassium 5.7.glucose on admission 285. Brain CT reporting no acute hemorrhage, hydrocephalus or mass effect, bilateralmaxillary sinusitis. chest x-ray reporting left lower lobe opacity, possibly aspiration/infection , atelectasis. Trace left pleural effusion. EKG reporting normal sinus rhythm,troponins negative 1 urine 3+ glucose, 1+ ketones 07/14/2019 evaluated by speech therapy reporting no overt signs/symptoms of aspiration with varying consistencies.neurology consult in place, recommendations pending.PT/OT evaluation pending.afebrile,normal WBCvital signs stable, maintaining O2 sats in the 90s on room air. maintained on Zithromax, Rocephin. Reports nonproductive cough.potassium 5.3.hemoglobin 11.1.good diet intake, consuming 100% of breakfast. Denies nausea vomiting or diarrhea.denies chest pain or palpitations.denies increased shortness of breath. 07/15/2019 blood sugars into the 40s this morning.patient declined at bedtime snack and dinner last night. Minimal diet intake this morning. MRI ordered by neurology, patient unable to tolerate. Objective - Vital Signs Vital signs: Vital Signs Temp 98.0 F 07/15/19 13:07 Pulse 88 07/15/19 13:07 Resp 16 07/15/19 13:07 BP 155/75 07/15/19 13:07 Pulse Ox 98 07/15/19 13:07 Intake & Output 07/14/19 07/15/19 07/15/19 18:59 06:59 18:59 Intake Total 240 100 540 Balance 240 100 540 Weight 66.678 kg Intake: Oral 240 100 540 Other: Voiding Method Incontinent Incontinent Incontinent # Voids 1 0 5 # Bowel Movements 1 - Exam VITAL SIGNS: [as above] GENERAL: sitting up at bedside, no acute distress HEENT: Conjunctivae normal. eyes normal. NECK: No JVD. No thyroid enlargement. No LNs CARDIOVASCULAR: S1, S2 regular. No murmur RESPIRATION: Breath sounds diminished in the bases. scattered rhonchi or crackles. fine expiratory wheezing ABDOMEN: Soft, nontender . No guarding. no masses palpable. No ascites, No hepatosplenomegaly.Bowel sounds heard. LEGS: No edema. no swelling PSYCHIATRY: Alert and oriented X2,disoriented to date, mood and affect normal. NERVOUS SYSTEM: Cranial N 2-12 grossly normal. Moves all 4 limbs. Diffuse weakness No new focal deficits. Skin: no rash - Labs CBC & Chem 7: 07/15/19 09:23 07/15/19 09:23 Labs: Abnormal Lab Results - Last 24 Hours (Table) 07/14/19 07/15/19 07/15/19 Range/Units 21:52 07:12 07:28 RBC (4.30-5.90) m/uL Hgb (13.0-17.5) gm/dL Hct (39.0-53.0) % Lymphocytes # (1.0-4.8) k/uL Glucose (74-99) mg/dL POC Glucose (mg/dL) 193 H 45 L 46 L (75-99) mg/dL 07/15/19 07/15/19 07/15/19 Range/Units 07:31 07:49 08:04 RBC (4.30-5.90) m/uL Hgb (13.0-17.5) gm/dL Hct (39.0-53.0) % Lymphocytes # (1.0-4.8) k/uL Glucose (74-99) mg/dL POC Glucose (mg/dL) 41 L 56 L 74 L (75-99) mg/dL 07/15/19 07/15/19 07/15/19 Range/Units 09:23 09:23 12:09 RBC 3.67 L (4.30-5.90) m/uL Hgb 10.2 L (13.0-17.5) gm/dL Hct 31.8 L (39.0-53.0) % Lymphocytes # 0.6 L (1.0-4.8) k/uL Glucose 220 H (74-99) mg/dL POC Glucose (mg/dL) 298 H (75-99) mg/dL 07/15/19 Range/Units 16:35 RBC (4.30-5.90) m/uL Hgb (13.0-17.5) gm/dL Hct (39.0-53.0) % Lymphocytes # (1.0-4.8) k/uL Glucose (74-99) mg/dL POC Glucose (mg/dL) 68 L (75-99) mg/dL Microbiology - Last 24 Hours (Table) 07/13/19 04:45 Blood Culture - Preliminary Blood No Growth after 48 hours Assessment and Plan Assessment: acute exacerbation of advancing Parkinson's Disease,with advancing dementia,Possible acute TIA. acute left lower lobe pneumonia, community-acquired, possibly aspiration atelectasis dehydration hyperkalemia secondary to the above Mild Acute renal failure secondary to dehydration. Baseline creatinine around 0.9. Chronic renal failure, stage II anemia, possibly chronic secondary to renal failure plan: Continue on current medication regime ,monitoring and symptomatic treatment. Neurology recommendations noted.continue antibiotics of Zithromax. discharge planning in progress to subacute rehab tomorrow. The impression and plan of care has been dictated as directed. : I performed a history and examination of this patient, discussed the same with the dictator. I agree with the dictator's note ,documented as a scribe. Any additional findings or plans will be noted.
[2019-07-15 17:10] LABS: Glucose,Whole Blood 86 mg/dL (75-99)
[2019-07-15] MEDS: QUEtiapine 25 MG TAB PO SCH (19:51)
[2019-07-15] MEDS: DIVALPROEX ER 500 MG TAB.ER.24H PO SCH (19:52)
[2019-07-15] MEDS: ATORVASTATIN 80 MG TAB PO SCH (19:52)
[2019-07-15 21:06] LABS: Glucose,Whole Blood 271 mg/dL (75-99)
[2019-07-15] MEDS: CEFDINIR 300 MG CAP PO SCH (21:51)
[2019-07-15] MEDS: INSULIN DETEMIR (LEVEMIR) 100 UNIT/ML SYR SQ SCH (21:52)
[2019-07-16 02:12] LABS: Glucose,Whole Blood 68 mg/dL (75-99)
[2019-07-16 02:33] LABS: Glucose,Whole Blood 74 mg/dL (75-99)
[2019-07-16 03:13] LABS: Glucose,Whole Blood 75 mg/dL (75-99)
[2019-07-16 04:48] LABS: Glucose,Whole Blood 166 mg/dL (75-99)
[2019-07-16 04:55] VITALS: BP 157/76; PULSE 76; TEMP 98
[2019-07-16] MEDS: AZITHROMYCIN 500 MG TAB PO SCH (07:14)
[2019-07-16] MEDS: CEFDINIR 300 MG CAP PO SCH (07:14)
[2019-07-16] MEDS: MEMANTINE 5 MG TAB PO SCH (07:14)
[2019-07-16] MEDS: LISINOPRIL 2.5 MG TAB PO SCH (07:14)
[2019-07-16] MEDS: ASPIRIN 81 MG PO SCH (07:14)
[2019-07-16] MEDS: DONEPEZIL 10 MG TAB PO SCH (07:14)
[2019-07-16] MEDS: OLANZapine 5 MG TAB PO SCH (07:14)
[2019-07-16 07:15] LABS: Glucose,Whole Blood 238 mg/dL (75-99)
[2019-07-16] MEDS: INSULIN ASPART (NovoLOG) 100 UNIT/ML VIAL SQ SCH ×2 (07:22→11:59)
[2019-07-16] MEDS: IPRATROPIUM-ALBUTEROL 3 ML NEB INHALATION SCH ×2 (07:30→11:19)
--- NOTE | 2019-07-16 10:53 | P.DS ---
Providers Date of admission: 07/13/19 07:04 Expected date of discharge: 07/16/19 Attending physician: Franco Tracey Consults: 07/13/19 12:40 Consult Physician Routine Consulting Provider: Yelena Washington Consult Reason/Comments: TIA, Parkinsons-Acute Exac Do you want consulting provider notified?: Yes Primary care physician: Franco Tracey [facility] Course: Final Diagnoses: acute exacerbation of advancing Parkinson's Disease,with advancing dementia,Possible acute TIA. acute left lower lobe pneumonia, community-acquired atelectasis dehydration hyperkalemia secondary to the above Mild Acute renal failure secondary to dehydration. Baseline creatinine around 0.9. Chronic renal failure, stage II anemia, possibly chronic secondary to renal failure Hospital course:this is a 79-year-old gentleman with history of dementia, diabetes mellitus, hyperlipidemia, hypertension, prostate disorder, depression, former nicotine dependence and multiple other medical issues, presented to the E with worsening lethargy,wandering around early this morning,appeared to be leaning more to the left side upon sitting,as per . Patient was last seen around 10 PM, sitting upright,normal. Speech appropriate,generalized weakness.Patient denies chest pain, palpitations or increased shortness of breath. Denies headache, lightheadedness, dizziness or focal deficits.denies numbness.Vital signs stable with O2 sats of high 90s on room air.T-max 99.1,normal WBC, hemoglobin 10.3. BUN 35, creatinine 1.07, potassium 5.7.glucose on admission 285. Brain CT reporting no acute hemorrhage, hydrocephalus or mass effect, bilateralmaxillary sinusitis. chest x-ray reporting left lower lobe opacity, possibly aspiration/infection , atelectasis. Trace left pleural effusion. EKG reporting normal sinus rhythm,troponins negative 1 urine 3+ glucose, 1+ ketones 07/14/2019 evaluated by speech therapy reporting no overt signs/symptoms of aspiration with varying consistencies.neurology consult in place, recommendations pending.PT/OT evaluation pending.afebrile,normal WBCvital signs stable, maintaining O2 sats in the 90s on room air. maintained on Zithromax, Rocephin. Reports nonproductive cough.potassium 5.3.hemoglobin 11.1.good diet intake, consuming 100% of breakfast. Denies nausea vomiting or diarrhea.denies chest pain or palpitations.denies increased shortness of breath. 07/15/2019 blood sugars into the 40s this morning.patient declined at bedtime snack and dinner last night. Minimal diet intake this morning. MRI ordered by neurology, spouse declined as patient unable to tolerate MRI. maintained on Zithromax, Cefdnir. Significant clinical improvement.evaluated and cleared by neurology for discharge. Patient is being discharged to [facility] subacute rehab in a stable condition with guarded prognosis. Exam GENERAL: alert and oriented 2,sitting up at bedside, no acute distress CARDIOVASCULAR: S1, S2 regular. No murmur RESPIRATION: Breath sounds diminished in the bases. occasional scattered rhonchi. ABDOMEN: Soft, nontender . No guarding. no masses palpable. Bowel sounds heard. NERVOUS SYSTEM: No new focal deficits. The impression and plan of care has been dictated as directed. : I performed a history and examination of this patient, discussed the same with the dictator. I agree with the dictator's note ,documented as a scribe. Any additional findings or plans will be noted. Patient Condition at Discharge: Stable Plan - Discharge Summary New Discharge Prescriptions: New Aspirin 81 mg PO DAILY chew Ipratropium-Albuterol Nebulize [Duoneb 0.5 mg-3 mg/3 ml Soln] 3 ml INHALATION RT-QID ampul.neb Cefdinir [Omnicef] 300 mg PO Q12HR #10 cap QUEtiapine [SEROquel] 25 mg PO HS tab INSULIN LISPRO (HumaLOG) [humaLOG] 0 unit SQ ACHS #1 vial Continue OLANZapine [ZyPREXA] 5 mg PO BID #56 tab Atorvastatin [Lipitor] 80 mg PO HS #28 tab Donepezil HCl [Aricept] 10 mg PO DAILY #28 tablet Lisinopril [Zestril] 2.5 mg PO DAILY #28 tab Memantine [Namenda] 5 mg PO DAILY #28 tab Divalproex ER [Depakote ER] 500 mg PO HS Changed Insulin Detemir (Levemir) [Levemir] 32 unit SQ HS #1 Discontinued glipiZIDE [Glucotrol] 5 mg PO AC-LUNCH #28 tab sitaGLIPtin PHOSPHATE [Januvia] 100 mg PO DAILY metFORMIN HCL 1,000 mg PO BID Discharge Medication List Atorvastatin [Lipitor] 80 mg PO HS #28 tab 02/12/18 [Rx] Donepezil HCl [Aricept] 10 mg PO DAILY #28 tablet 02/12/18 [Rx] Lisinopril [Zestril] 2.5 mg PO DAILY #28 tab 02/12/18 [Rx] Memantine [Namenda] 5 mg PO DAILY #28 tab 02/12/18 [Rx] OLANZapine [ZyPREXA] 5 mg PO BID #56 tab 02/12/18 [Rx] Divalproex ER [Depakote ER] 500 mg PO HS 01/19/19 [History] Aspirin 81 mg PO DAILY chew 07/16/19 [Rx] Cefdinir [Omnicef] 300 mg PO Q12HR #10 cap 07/16/19 [Rx] INSULIN LISPRO (HumaLOG) [humaLOG] 0 unit SQ ACHS #1 vial 07/16/19 [Rx] Insulin Detemir (Levemir) [Levemir] 32 unit SQ HS #1 07/16/19 [Rx] Ipratropium-Albuterol Nebulize [Duoneb 0.5 mg-3 mg/3 ml Soln] 3 ml INHALATION RT-QID ampul.neb 07/16/19 [Rx] QUEtiapine [SEROquel] 25 mg PO HS tab 07/16/19 [Rx] Follow up Appointment(s)/Referral(s): Franco Tracey DO [Primary Care Provider] - 1 Week (after DC from subacute rehab) neurologistDr. patient's own [Other] - 3 Weeks Patient Instructions/Handouts: Type 2 Diabetes in Adults: New Diagnosis (DC), Aspiration Pneumonia (DC), Altered Mental Status (ED) Activity/Diet/Wound Care/Special Instructions: Tete cbc,bmp in 3 days Diet: Cardiac,consistent carb diet fluctuates, oral agents currently discontinued. Activitiy: as tolerated
[2019-07-16 11:51] LABS: Glucose,Whole Blood 81 mg/dL (75-99)
== END 2019-07-16 13:15 | DRG 177 ==
LOC: EC 04:42 → 6NMEDSUR 07:04
PROVIDERS: ADMIT Family Medicine; ATTEND Family Medicine
DX: J69.0 Pneumonitis due to inhalation of food and vomit (principal); G93.41 Metabolic encephalopathy; J98.11 Atelectasis; N17.9 Acute kidney failure, unspecified; G45.9 Transient cerebral ischemic attack, unspecified; D63.1 Anemia in chronic kidney disease; G20 Parkinson's disease; F02.80 Dementia in other diseases classified elsewhere, unspecified severity, without behavioral disturbance, psychotic disturbance, mood disturbance, and anxiety; E11.22 Type 2 diabetes mellitus with diabetic chronic kidney disease; I12.9 Hypertensive chronic kidney disease with stage 1 through stage 4 chronic kidney disease, or unspecified chronic kidney disease; E86.0 Dehydration; E87.5 Hyperkalemia; N18.2 Chronic kidney disease, stage 2 (mild); F32.9 Major depressive disorder, single episode, unspecified; N42.9 Disorder of prostate, unspecified; R32 Unspecified urinary incontinence; H26.9 Unspecified cataract; Z91.83 Wandering in diseases classified elsewhere; Z79.4 Long term (current) use of insulin; Z79.899 Other long term (current) drug therapy; E78.5 Hyperlipidemia, unspecified; Z90.49 Acquired absence of other specified parts of digestive tract; Z87.891 Personal history of nicotine dependence; Z86.79 Personal history of other diseases of the circulatory system; Z83.3 Family history of diabetes mellitus
CPT/HCPCS: 36415; 70450; 71045; 80048; 80053; 81003; 84132; 84484; 85025; 85610; 85730; 87040; 93005; 94640; 99285

== ENCOUNTER 2019-07-18 00:07 | Emergency (ER) | payer MEDICARE ==
[2019-07-18 00:17] VITALS: TEMP 98.7
[2019-07-18 00:27] LABS: Glucose,Whole Blood 152 mg/dL (75-99)
[2019-07-18] MEDS ORDERED: DIPH,PERTUS(ACELL)TETVAC-LF 0.5 ML VIAL IM ONE (00:42)
--- NOTE | 2019-07-18 00:42 | ED ---
Altered Mental Status HPI - General Chief Complaint: Altered Mental Status Stated Complaint: aggression Time Seen by Provider: 07/18/19 00:17 Source: patient Mode of arrival: ambulatory Limitations: no limitations, altered mental status - History of Present Illness MD Complaint: confusion -: hour(s) Severity: moderate Context: history of similar presentation Associated Symptoms: denies other symptoms - Related Data Home Medications Medication Instructions Recorded Confirmed Divalproex ER [Depakote ER] 500 mg PO HS 01/19/19 07/13/19 Previous Rx's Medication Instructions Recorded Atorvastatin [Lipitor] 80 mg PO HS #28 tab 02/12/18 Donepezil HCl [Aricept] 10 mg PO DAILY #28 tablet 02/12/18 Lisinopril [Zestril] 2.5 mg PO DAILY #28 tab 02/12/18 Memantine [Namenda] 5 mg PO DAILY #28 tab 02/12/18 OLANZapine [ZyPREXA] 5 mg PO BID #56 tab 02/12/18 Aspirin 81 mg PO DAILY chew 07/16/19 Cefdinir [Omnicef] 300 mg PO Q12HR #10 cap 07/16/19 INSULIN LISPRO (HumaLOG) [humaLOG] 0 unit SQ ACHS #1 vial 07/16/19 Insulin Detemir (Levemir) [Levemir] 32 unit SQ HS #1 07/16/19 Ipratropium-Albuterol Nebulize 3 ml INHALATION RT-QID ampul.neb 07/16/19 [Duoneb 0.5 mg-3 mg/3 ml Soln] QUEtiapine [SEROquel] 25 mg PO HS tab 07/16/19 Allergies Allergy/AdvReac Type Severity Reaction Status Date / Time No Known Allergies Allergy Verified 07/18/19 00:17 Review of Systems ROS Statement: Those systems with pertinent positive or pertinent negative responses have been documented in the HPI. ROS Other: All systems not noted in ROS Statement are negative. Constitutional: Denies: fever Respiratory: Denies: cough, dyspnea Cardiovascular: Denies: chest pain Gastrointestinal: Denies: abdominal pain, vomiting Musculoskeletal: Denies: back pain Neurological: Denies: headache Past Medical History Past Medical History: Dementia, Diabetes Mellitus, Hyperlipidemia, Hypertension, Prostate Disorder Additional Past Medical History / Comment(s): "right carotid artery cleaned out".. cataracts History of Any Multi-Drug Resistant Organisms: None Reported Past Surgical History: Appendectomy, Cholecystectomy Past Psychological History: Depression Smoking Status: Former smoker Past Alcohol Use History: None Reported Past Drug Use History: None Reported - Past Family History Mother Family Medical History: Diabetes Mellitus Father History Unknown: Yes General Exam Limitations: no limitations, altered mental status General appearance: alert, in no apparent distress Head exam: Present: atraumatic, normocephalic Eye exam: Present: normal appearance, EOMI. Absent: scleral icterus, conjunctival injection ENT exam: Present: normal oropharynx Neck exam: Present: normal inspection, full ROM. Absent: tenderness Respiratory exam: Present: normal lung sounds bilaterally. Absent: respiratory distress, wheezes, rales, rhonchi, stridor Cardiovascular Exam: Present: regular rate, normal rhythm, normal heart sounds. Absent: systolic murmur, diastolic murmur, rubs, gallop GI/Abdominal exam: Present: soft. Absent: distended, tenderness, guarding, rebound, rigid, mass Extremities exam: Present: normal inspection, normal capillary refill. Absent: pedal edema, calf tenderness Back exam: Present: normal inspection. Absent: CVA tenderness (R), CVA tenderness (L) Neurological exam: Present: alert, CN II-XII intact. Absent: motor sensory deficit Skin exam: Present: warm, dry, intact, normal color Course Vital Signs 07/18/19 00:09 Temperature 98.7 F Pulse Rate 100 Respiratory 20 Rate Blood Pressure 125/63 O2 Sat by Pulse 96 Oximetry Medical Decision Making - Lab Data Result diagrams: 07/18/19 00:25 07/18/19 00:25 Lab Results 07/18/19 07/18/19 07/18/19 Range/Units 00:23 00:25 00:25 WBC 6.4 (3.8-10.6) k/uL RBC 3.62 L (4.30-5.90) m/uL Hgb 10.0 L (13.0-17.5) gm/dL Hct 30.2 L (39.0-53.0) % MCV 83.3 (80.0-100.0) fL MCH 27.6 (25.0-35.0) pg MCHC 33.1 (31.0-37.0) g/dL RDW 13.0 (11.5-15.5) % Plt Count 257 (150-450) k/uL Neutrophils % 68 % Lymphocytes % 19 % Monocytes % 10 % Eosinophils % 2 % Basophils % 1 % Neutrophils # 4.4 (1.3-7.7) k/uL Lymphocytes # 1.2 (1.0-4.8) k/uL Monocytes # 0.6 (0-1.0) k/uL Eosinophils # 0.1 (0-0.7) k/uL Basophils # 0.0 (0-0.2) k/uL Sodium 138 (137-145) mmol/L Potassium 4.2 (3.5-5.1) mmol/L Chloride 104 (98-107) mmol/L Carbon Dioxide 26 (22-30) mmol/L Anion Gap 8 mmol/L BUN 20 (9-20) mg/dL Creatinine 1.05 (0.66-1.25) mg/dL Est GFR (CKD-EPI)AfAm 78 (>60 ml/min/1.73 sqM) Est GFR (CKD-EPI)NonAf 68 (>60 ml/min/1.73 sqM) Glucose 143 H (74-99) mg/dL POC Glucose (mg/dL) 152 H (75-99) mg/dL POC Glu [employer] ID Marlene Rich Calcium 9.3 (8.4-10.2) mg/dL Urine Color Urine Appearance (Clear) Urine pH (5.0-8.0) Ur Specific [place] (1.001-1.035) Urine Protein (Negative) Urine Glucose (UA) (Negative) Urine Ketones (Negative) Urine Blood (Negative) Urine Nitrite (Negative) Urine Bilirubin (Negative) Urine Urobilinogen (<2.0) mg/dL Ur Leukocyte Esterase (Negative) Urine RBC (0-5) /hpf Urine WBC (0-5) /hpf Ur Squamous Epith Cells (0-4) /hpf Hyaline Casts (0-2) /lpf Urine Mucus (None) /hpf 07/18/19 Range/Units 02:04 WBC (3.8-10.6) k/uL RBC (4.30-5.90) m/uL Hgb (13.0-17.5) gm/dL Hct (39.0-53.0) % MCV (80.0-100.0) fL MCH (25.0-35.0) pg MCHC (31.0-37.0) g/dL RDW (11.5-15.5) % Plt Count (150-450) k/uL Neutrophils % % Lymphocytes % % Monocytes % % Eosinophils % % Basophils % % Neutrophils # (1.3-7.7) k/uL Lymphocytes # (1.0-4.8) k/uL Monocytes # (0-1.0) k/uL Eosinophils # (0-0.7) k/uL Basophils # (0-0.2) k/uL Sodium (137-145) mmol/L Potassium (3.5-5.1) mmol/L Chloride (98-107) mmol/L Carbon Dioxide (22-30) mmol/L Anion Gap mmol/L BUN (9-20) mg/dL Creatinine (0.66-1.25) mg/dL Est GFR (CKD-EPI)AfAm (>60 ml/min/1.73 sqM) Est GFR (CKD-EPI)NonAf (>60 ml/min/1.73 sqM) Glucose (74-99) mg/dL POC Glucose (mg/dL) (75-99) mg/dL POC Glu [employer] Technician ID Calcium (8.4-10.2) mg/dL Urine Color Yellow Urine Appearance Clear (Clear) Urine pH 6.5 (5.0-8.0) Ur Specific [place] 1.014 (1.001-1.035) Urine Protein Negative (Negative) Urine Glucose (UA) Trace H (Negative) Urine Ketones Negative (Negative) Urine Blood Negative (Negative) Urine Nitrite Negative (Negative) Urine Bilirubin Negative (Negative) Urine Urobilinogen <2.0 (<2.0) mg/dL Ur Leukocyte Esterase Small H (Negative) Urine RBC 2 (0-5) /hpf Urine WBC 5 (0-5) /hpf Ur Squamous Epith Cells <1 (0-4) /hpf Hyaline Casts 7 H (0-2) /lpf Urine Mucus Rare H (None) /hpf Disposition Clinical Impression: Dementia with behavioral disturbance, Skin tear Disposition: HOME SELF-CARE Condition: Fair Instructions (If sedation given, give patient instructions): Altered Mental Status (ED), Skin Tear (ED) Is patient prescribed a controlled substance at d/c from ED?: No Referrals: Ash Mansfield MD [Primary Care Provider] - 1-2 days
[2019-07-18 00:48] LABS: Basophils % (A) 1 %; Eosinophils # (A) 0.1 k/uL (0-0.7); Eosinophils % (A) 2 %; HCT 30.2 % (39.0-53.0); Lymphocytes # (A) 1.2 k/uL (1.0-4.8); Lymphocytes % (A) 19 %; MCH 27.6 pg (25.0-35.0); MCHC 33.1 g/dL (31.0-37.0); MCV 83.3 fL (80.0-100.0); Mean Platelet Volume 8.4; Monocytes # (A) 0.6 k/uL (0-1.0); Monocytes % (A) 10 %; Neutrophils # (A) 4.4 k/uL (1.3-7.7); Neutrophils % (A) 68 %; Platelet Count 257 k/uL (150-450); RBC 3.62 m/uL (4.30-5.90); WBC 6.4 k/uL (3.8-10.6)
[2019-07-18 00:56] LABS: Calcium 9.3 mg/dL (8.4-10.2); Potassium 4.2 mmol/L (3.5-5.1)
--- NOTE | 2019-07-18 01:03 | CT ---
EXAMINATION TYPE: CT brain wo con DATE OF EXAM: 07/18/2019 COMPARISON: 07/13/2019 HISTORY: fall CT DLP: 1182.4 mGycm Automated exposure control for dose reduction was used. Multiple axial sections were obtained of the brain without contrast. There is diffuse cerebral cortical atrophy. There is no mass effect nor midline shift. There is no si gn of intracranial hemorrhage. There is enlargement of the ventricles. The calvarium is intact. There is some mild mucosal thickening in the ethmoid and maxillary sinuses. IMPRESSION: Diffuse atrophy. No acute intracranial abnormality. Sinusitis. No significant change.
[2019-07-18 02:16] LABS: Appearance,Urine Clear (Clear); Bilirubin,Urine Negative (Negative); Blood,Urine Negative (Negative); Color,Urine Yellow; Glucose,Urine (UA) Trace (Negative); Hyaline Casts,Urine 7 /lpf (0-2); Ketones,Urine Negative (Negative); Leukocyte Esterase,Urine Small (Negative); Mucus,Urine Rare /hpf; Nitrite,Urine Negative (Negative); PH, Urine 6.5 (5.0-8.0); Protein,Urine Negative (Negative); RBC,Urine 2 /hpf (0-5); Specific Gravity,Urine 1.014 (1.001-1.035); Squamous Epithelial Cell,Urine <1 /hpf (0-4); Urobilinogen,Urine <2.0 mg/dL (<2.0); WBC,Urine 5 /hpf (0-5)
[2019-07-18] MEDS ORDERED: TOPICAL SKIN ADHESIVE 1 EACH AMP TOPICAL ONE (03:04)
[2019-07-18 03:34] VITALS: BP 144/82; PULSE 78; RESP 18
== END 2019-07-18 03:34 | disposition home or self-care (01) ==
LOC: EC 00:07
DX: F03.91 Unspecified dementia, unspecified severity, with behavioral disturbance (principal); S61.512A Laceration without foreign body of left wrist, initial encounter; F32.9 Major depressive disorder, single episode, unspecified; Z87.891 Personal history of nicotine dependence; Z79.899 Other long term (current) drug therapy; Z23 Encounter for immunization; X58.XXXA Exposure to other specified factors, initial encounter; Y93.89 Activity, other specified; Y92.89 Other specified places as the place of occurrence of the external cause
CPT/HCPCS: 12002; 36415; 70450; 80048; 81001; 85025; 87086; 90471; 90715; 99285

== ENCOUNTER 2019-08-26 13:05 | Inpatient (IN) | payer MEDICARE ==
[2019-08-26] MEDS ORDERED: ACETAMINOPHEN TAB 500 MG TAB PO STA (13:34)
[2019-08-26] MEDS ORDERED: IBUPROFEN 600 MG TAB PO STA (13:34)
--- NOTE | 2019-08-26 13:37 | ED ---
General Adult HPI - General Chief complaint: Altered Mental Status Stated complaint: AMS, Fever Time Seen by Provider: 08/26/19 13:10 Source: EMS, RN notes reviewed, old records reviewed Mode of arrival: EMS Limitations: altered mental status - History of Present Illness Initial comments: This is a 79-year-old male who presents to the emergency department from a [facility]. Patient was sent in because he was not as responsive as normal. According to staff that he thought he might have a temperature and that he hadn't urinated yet today. No one is with the patient and patient himself has no complaints. Patient denies any fever chills. Patient denies any chest pain. Patient denies any abdominal pain patient denies any nausea vomiting. Patient denies any burning with urination. Patient denies any trauma. Patient is a very poor historian because he has dementia is at the bedside that she knows no more history and then we have because she was not at the facility. - Related Data Home Medications Medication Instructions Recorded Confirmed Divalproex ER [Depakote ER] 500 mg PO HS 01/19/19 07/13/19 Previous Rx's Medication Instructions Recorded Atorvastatin [Lipitor] 80 mg PO HS #28 tab 02/12/18 Donepezil HCl [Aricept] 10 mg PO DAILY #28 tablet 02/12/18 Lisinopril [Zestril] 2.5 mg PO DAILY #28 tab 02/12/18 Memantine [Namenda] 5 mg PO DAILY #28 tab 02/12/18 OLANZapine [ZyPREXA] 5 mg PO BID #56 tab 02/12/18 Aspirin 81 mg PO DAILY chew 07/16/19 Cefdinir [Omnicef] 300 mg PO Q12HR #10 cap 07/16/19 INSULIN LISPRO (HumaLOG) [humaLOG] 0 unit SQ ACHS #1 vial 07/16/19 Insulin Detemir (Levemir) [Levemir] 32 unit SQ HS #1 07/16/19 Ipratropium-Albuterol Nebulize 3 ml INHALATION RT-QID ampul.neb 07/16/19 [Duoneb 0.5 mg-3 mg/3 ml Soln] QUEtiapine [SEROquel] 25 mg PO HS tab 07/16/19 Allergies Allergy/AdvReac Type Severity Reaction Status Date / Time No Known Allergies Allergy Verified 07/18/19 00:17 Review of Systems ROS Statement: Those systems with pertinent positive or pertinent negative responses have been documented in the HPI. ROS Other: All systems not noted in ROS Statement are negative. Past Medical History Past Medical History: Dementia, Diabetes Mellitus, Hyperlipidemia, Hypertension, Prostate Disorder Additional Past Medical History / Comment(s): "right carotid artery cleaned out".. cataracts History of Any Multi-Drug Resistant Organisms: None Reported Past Surgical History: Appendectomy, Cholecystectomy Past Psychological History: Depression Smoking Status: Former smoker Past Alcohol Use History: None Reported Past Drug Use History: None Reported - Past Family History Mother Family Medical History: Diabetes Mellitus Father History Unknown: Yes General Exam - General Exam Comments Initial Comments: GENERAL: Patient is well-developed and well-nourished. Patient is nontoxic and well- hydrated and is in mild distress. ENT: Neck is soft and supple. No significant lymphadenopathy is noted. Oropharynx is clear. Moist mucous membranes. Neck has full range of motion without eliciting any pain. EYES: The sclera were anicteric and conjunctiva were pink and moist. Extraocular movements were intact and pupils were equal round and reactive to light. Eyelids were unremarkable. PULMONARY: Unlabored respirations. Good breath sounds bilaterally. No audible rales rhonchi or wheezing was noted. CARDIOVASCULAR: There is a regular rate and rhythm without any murmurs gallops or rubs. ABDOMEN: Soft and nontender with normal bowel sounds. SKIN: Skin is clear with no lesions or rashes and otherwise unremarkable. NEUROLOGIC: Patient is alert and oriented x3. Cranial nerves II through XII are grossly intact. Motor and sensory are also intact. Normal speech, volume and content. Symmetrical smile. MUSCULOSKELETAL: Normal extremities with adequate strength and full range of motion. 2+ edema bilaterally. states the edema is normal for him. LYMPHATICS: No significant lymphadenopathy is noted PSYCHIATRIC: Normal psychiatric evaluation. Limitations: altered mental status Course Vital Signs 08/26/19 08/26/19 08/26/19 13:11 13:33 14:00 Temperature 99.4 F 100.3 F H Pulse Rate 80 79 Respiratory 18 17 Rate Blood Pressure 113/60 114/61 O2 Sat by Pulse 97 98 Oximetry Medical Decision Making - Medical Decision Making EKG shows normal sinus rhythm at 77 bpm NC interval is 144 QRS 78 QT interval 358 QTC is 405 per patient's EKG shows no ST segment elevation or depression. Patient does have some Q waves in [address] of the brain shows no acute brain abnormality. Patient does shows moderate to severe ethmoid sinusitis. Patient has no tenderness in the mastoid region at all. Chest x-ray shows no acute abnormality. Patient's family states Dr. Tracey was the patient's doctor prior to going to the [facility] and they would prefer Dr. Tracey take care of the patient hospital if possible if not they will be okay with Dr. Mansfield. - Lab Data Result diagrams: 08/26/19 13:21 08/26/19 13:21 Lab Results 08/26/19 08/26/19 08/26/19 Range/Units 13:21 13:21 13:21 WBC 4.6 (3.8-10.6) k/uL RBC 3.46 L (4.30-5.90) m/uL Hgb 9.1 L (13.0-17.5) gm/dL Hct 29.2 L (39.0-53.0) % MCV 84.5 (80.0-100.0) fL MCH 26.4 (25.0-35.0) pg MCHC 31.3 (31.0-37.0) g/dL RDW 13.6 (11.5-15.5) % Plt Count 273 (150-450) k/uL Neutrophils % 70 % Lymphocytes % 12 % Monocytes % 13 % Eosinophils % 1 % Basophils % 2 % Neutrophils # 3.2 (1.3-7.7) k/uL Lymphocytes # 0.6 L (1.0-4.8) k/uL Monocytes # 0.6 (0-1.0) k/uL Eosinophils # 0.0 (0-0.7) k/uL Basophils # 0.1 (0-0.2) k/uL PT (9.0-12.0) sec INR (<1.2) APTT (22.0-30.0) sec Sodium 138 (137-145) mmol/L Potassium 4.5 (3.5-5.1) mmol/L Chloride 104 (98-107) mmol/L Carbon Dioxide 28 (22-30) mmol/L Anion Gap 6 mmol/L BUN 20 (9-20) mg/dL Creatinine 1.15 (0.66-1.25) mg/dL Est GFR (CKD-EPI)AfAm 70 (>60 ml/min/1.73 sqM) Est GFR (CKD-EPI)NonAf 61 (>60 ml/min/1.73 sqM) Glucose 73 L (74-99) mg/dL Plasma Lactic Acid Joseph 1.4 (0.7-2.0) mmol/L Calcium 9.1 (8.4-10.2) mg/dL Total Bilirubin 0.4 (0.2-1.3) mg/dL AST 48 (17-59) U/L ALT 17 (4-49) U/L Alkaline Phosphatase 91 (38-126) U/L Total Protein 5.9 L (6.3-8.2) g/dL Albumin 3.1 L (3.5-5.0) g/dL Urine Color Urine Appearance (Clear) Urine pH (5.0-8.0) Ur Specific [place] (1.001-1.035) Urine Protein (Negative) Urine Glucose (UA) (Negative) Urine Ketones (Negative) Urine Blood (Negative) Urine Nitrite (Negative) Urine Bilirubin (Negative) Urine Urobilinogen (<2.0) mg/dL Ur Leukocyte Esterase (Negative) Influenza Type A RNA (Not Detectd) Influenza Type B (PCR) (Not Detectd) 08/26/19 08/26/19 08/26/19 Range/Units 13:21 13:42 14:04 WBC (3.8-10.6) k/uL RBC (4.30-5.90) m/uL Hgb (13.0-17.5) gm/dL Hct (39.0-53.0) % MCV (80.0-100.0) fL MCH (25.0-35.0) pg MCHC (31.0-37.0) g/dL RDW (11.5-15.5) % Plt Count (150-450) k/uL Neutrophils % % Lymphocytes % % Monocytes % % Eosinophils % % Basophils % % Neutrophils # (1.3-7.7) k/uL Lymphocytes # (1.0-4.8) k/uL Monocytes # (0-1.0) k/uL Eosinophils # (0-0.7) k/uL Basophils # (0-0.2) k/uL PT 10.3 (9.0-12.0) sec INR 1.0 (<1.2) APTT 24.3 (22.0-30.0) sec Sodium (137-145) mmol/L Potassium (3.5-5.1) mmol/L Chloride (98-107) mmol/L Carbon Dioxide (22-30) mmol/L Anion Gap mmol/L BUN (9-20) mg/dL Creatinine (0.66-1.25) mg/dL Est GFR (CKD-EPI)AfAm (>60 ml/min/1.73 sqM) Est GFR (CKD-EPI)NonAf (>60 ml/min/1.73 sqM) Glucose (74-99) mg/dL Plasma Lactic Acid Joseph (0.7-2.0) mmol/L Calcium (8.4-10.2) mg/dL Total Bilirubin (0.2-1.3) mg/dL AST (17-59) U/L ALT (4-49) U/L Alkaline Phosphatase (38-126) U/L Total Protein (6.3-8.2) g/dL Albumin (3.5-5.0) g/dL Urine Color Light Yellow Urine Appearance Clear (Clear) Urine pH 7.5 (5.0-8.0) Ur Specific [place] 1.009 (1.001-1.035) Urine Protein Negative (Negative) Urine Glucose (UA) Negative (Negative) Urine Ketones Negative (Negative) Urine Blood Negative (Negative) Urine Nitrite Negative (Negative) Urine Bilirubin Negative (Negative) Urine Urobilinogen <2.0 (<2.0) mg/dL Ur Leukocyte Esterase Negative (Negative) Influenza Type A RNA Not Detected (Not Detectd) Influenza Type B (PCR) Not Detected (Not Detectd) Disposition Clinical Impression: Altered mental status, Sinusitis Disposition: ADMITTED IP TO THIS HOSP Referrals: Ash Mansfield MD [Primary Care Provider] - 1-2 days Time of Disposition: 16:26
[2019-08-26 13:48] LABS: Basophils # (A) 0.1 k/uL (0-0.2); Basophils % (A) 2 %; Eosinophils % (A) 1 %; HCT 29.2 % (39.0-53.0); HGB 9.1 gm/dL (13.0-17.5); Lymphocytes # (A) 0.6 k/uL (1.0-4.8); Lymphocytes % (A) 12 %; MCH 26.4 pg (25.0-35.0); MCHC 31.3 g/dL (31.0-37.0); MCV 84.5 fL (80.0-100.0); Mean Platelet Volume 7.8; Monocytes # (A) 0.6 k/uL (0-1.0); Monocytes % (A) 13 %; Neutrophils # (A) 3.2 k/uL (1.3-7.7); Neutrophils % (A) 70 %; Platelet Count 273 k/uL (150-450); RBC 3.46 m/uL (4.30-5.90); RDW 13.6 % (11.5-15.5); WBC 4.6 k/uL (3.8-10.6)
[2019-08-26] MEDS: SODIUM CHLORIDE 0.9% 500 ML 500 ML IV SCH (13:48)
[2019-08-26 13:57] LABS: Albumin 3.1 g/dL (3.5-5.0); Calcium 9.1 mg/dL (8.4-10.2); Potassium 4.5 mmol/L (3.5-5.1); Total Bilirubin 0.4 mg/dL (0.2-1.3); Total Protein 5.9 g/dL (6.3-8.2)
[2019-08-26 14:02] LABS: Partial Thromboplastin Time 24.3 sec (22.0-30.0); Prothrombin Time 10.3 sec (9.0-12.0)
--- NOTE | 2019-08-26 14:04 | XR ---
EXAMINATION TYPE: XR chest 2V DATE OF EXAM: 08/26/2019 COMPARISON: Prior chest x-ray 07/13/2019 HISTORY: Fever, altered mental status TECHNIQUE: Frontal and lateral views of the chest are obtained. FINDINGS: There is no focal air space opacity, pleural effusion, or pneumothorax seen. The cardiac silhouette size is stable, patient is rotated. Aorta is dense. Patchy basilar atelectatic changes ar e suspected. There are coronary artery calcifications. The osseous structures are intact. There are o verlying cardiac leads. IMPRESSION: Suspect subsegmental basilar atelectatic changes, correlate to exclude pneumonia.
[2019-08-26 14:23] LABS: Appearance,Urine Clear (Clear); Bilirubin,Urine Negative (Negative); Blood,Urine Negative (Negative); Color,Urine Light Yellow; Glucose,Urine (UA) Negative (Negative); Ketones,Urine Negative (Negative); Leukocyte Esterase,Urine Negative (Negative); Nitrite,Urine Negative (Negative); PH, Urine 7.5 (5.0-8.0); Protein,Urine Negative (Negative); Specific Gravity,Urine 1.009 (1.001-1.035); Urobilinogen,Urine <2.0 mg/dL (<2.0)
--- NOTE | 2019-08-26 15:56 | CT ---
EXAMINATION TYPE: CT brain wo con DATE OF EXAM: 08/26/2019 COMPARISON: 07/18/2019 HISTORY: 79-year-old male confusion, altered mental status TECHNIQUE: Examination was done in axial plane without intravenous contrast. Coronal and sagittal r econstructions performed. CT DLP: 1082.4 mGycm Automated exposure control for dose reduction was used. FINDINGS: Redemonstrated [id number] ventriculomegaly with evidence ratio calculated at 0.35. Benign basal ganglionic calcifications. Moderate patchy white matter hypodensities in both cerebral hemispheres. Atherosclerotic calcifications within the carotid siphons. There is no evidence of acute intracranial hemorrhage, acute ischemic changes, mass, mass-effect, or extra-axial fluid collection. There is no effacement of cerebral sulci or basal subarachnoid cister ns. There is no midline shift. Otto-white matter distinction is preserved. Moderate to severe opacification within the ethmoid sinuses and small amount of opacification inferio r left mastoid air cells. IMPRESSION: 1. Stable [id number] ventriculomegaly probably relates to central cerebral atrophy. Correlate t o exclude NPH. 2. Moderate patchy changes of chronic small vessel ischemic disease. No acute intracranial abnormalit y otherwise seen. 3. Moderate to severe chronic ethmoid sinus disease. 4. Some trapped fluid within the inferior left mastoid air cells. Correlate for any mastoid pain to e xclude mastoiditis.
[2019-08-26] MEDS ORDERED: SODIUM CHLORIDE 0.9% 1,000 ML IV ONE (16:26)
[2019-08-26] MEDS ORDERED: AMPICILLIN-SULBACTAM 3 GM in SODIUM CHLORIDE 0.9% 100 ML IVPB STA (16:27)
[2019-08-26] MEDS ORDERED: BISACODYL 10 MG SUPP RECTAL PRN (19:28)
[2019-08-26] MEDS ORDERED: MAGNESIUM HYDROXIDE 2,400 MG/10 ML CUP PO PRN (19:28)
[2019-08-26] MEDS ORDERED: ACETAMINOPHEN TAB 325 MG TAB PO PRN (19:28)
[2019-08-26] MEDS ORDERED: NA PHOS,M-B/NA PHOS,DI-BA 133 ML ENEMA RECTAL PRN (19:28)
[2019-08-26] MEDS ORDERED: IPRATROPIUM-ALBUTEROL 3 ML NEB INHALATION PRN (19:28)
[2019-08-26] MEDS: IPRATROPIUM-ALBUTEROL 3 ML NEB INHALATION SCH (20:03)
[2019-08-26] MEDS: INSULIN ASPART (NovoLOG) 100 UNIT/ML VIAL SQ SCH (20:20)
[2019-08-26] MEDS: ATORVASTATIN 80 MG TAB PO SCH (20:20)
[2019-08-26] MEDS: DONEPEZIL 10 MG TAB PO SCH (20:20)
[2019-08-26] MEDS: DIVALPROEX ER 500 MG TAB.ER.24H PO SCH (20:20)
[2019-08-26 20:22] LABS: Glucose,Whole Blood 311 mg/dL (75-99)
[2019-08-26] MEDS: INSULIN DETEMIR (LEVEMIR) 100 UNIT/ML SYR SQ SCH (20:41)
[2019-08-26] MEDS: QUEtiapine 200 MG TAB PO SCH (20:41)
[2019-08-26] MEDS: AMPICILLIN-SULBACTAM 3 GM in SODIUM CHLORIDE 0.9% 100 ML IVPB SCH (23:32)
[2019-08-27] MEDS: AMPICILLIN-SULBACTAM 3 GM in SODIUM CHLORIDE 0.9% 100 ML IVPB SCH ×4 (05:01→23:22)
[2019-08-27] MEDS ORDERED: QUEtiapine 25 MG TAB PO SCH (08:00)
[2019-08-27 08:05] LABS: Glucose,Whole Blood 58 mg/dL (75-99)
[2019-08-27 08:36] LABS: Glucose,Whole Blood 35 mg/dL (75-99)
[2019-08-27 08:36] LABS: Glucose,Whole Blood 63 mg/dL (75-99)
[2019-08-27 08:36] LABS: Glucose,Whole Blood 35 mg/dL (75-99)
[2019-08-27 08:36] LABS: Glucose,Whole Blood 46 mg/dL (75-99)
[2019-08-27 08:36] LABS: Glucose,Whole Blood 71 mg/dL (75-99)
[2019-08-27] MEDS: LISINOPRIL 2.5 MG TAB PO SCH (09:03)
[2019-08-27] MEDS: INSULIN ASPART (NovoLOG) 100 UNIT/ML VIAL SQ SCH ×7 (09:06→20:27)
[2019-08-27] MEDS: MEMANTINE 5 MG TAB PO SCH (09:06)
[2019-08-27] MEDS: IPRATROPIUM-ALBUTEROL 3 ML NEB INHALATION SCH ×4 (09:15→19:09)
[2019-08-27 10:55] LABS: Glucose,Whole Blood 127 mg/dL (75-99)
[2019-08-27 16:38] LABS: Glucose,Whole Blood 172 mg/dL (75-99)
--- NOTE | 2019-08-27 17:21 | P.HPIM ---
History of Present Illness H&P Date: 08/27/19 Chief Complaint: Altered mental status This is a 79-year-old male resident of [facility] presented to the emergency room with decreased level of consciousness, decreased oral intake, denied fever or chills in a patient with dementia. Denied abdominal pain. Denies cough. Chest x-ray reporting subsegmental bibasilar atelectatic changes possible pneumonia. T-max 100.3, WBC 4.6, creatinine 1.15. Blood sugars elevated, on admission at 311. Influenza A and B not detected. UA negative. Brain CT reported stable mild to moderate ventriculomegaly probably related to central cerebral atrophy, rule out normal pressure hydrocephalus. No acute intracranial abnormality otherwise seen. Moderate to severe chronic ethmoid sinus disease with some trapped fluid within the inferior left mastoid air cells, possible mastoiditis. EKG reported normal sinus rhythm possible inferior infarct, age undetermined. Troponins pending.Denies any chest pain or palpitations.IV fluid hydration,antibiotics initiated, blood cultures obtained. Review of Systems ROS Statement: Those systems with pertinent positive or pertinent negative responses have been documented in the HPI. ROS Other: All systems not noted in ROS Statement are negative. Past Medical History Past Medical History: Dementia, Diabetes Mellitus, Hyperlipidemia, Hypertension, Prostate Disorder Additional Past Medical History / Comment(s): "right carotid artery cleaned out".. cataracts History of Any Multi-Drug Resistant Organisms: None Reported Past Surgical History: Appendectomy, Cholecystectomy Past Anesthesia/Blood Transfusion Reactions: No Reported Reaction Past Psychological History: Depression Smoking Status: Former smoker Past Alcohol Use History: None Reported Past Drug Use History: None Reported - Past Family History Mother Family Medical History: Diabetes Mellitus Father History Unknown: Yes Medications and Allergies Home Medications Medication Instructions Recorded Confirmed Type Divalproex ER [Depakote ER] 500 mg PO HS@2100 01/19/19 08/26/19 History Acetaminophen [Tylenol 8 Hour] 650 mg PO Q4H PRN 08/26/19 08/26/19 History Aspirin 81 mg PO DAILY@1700 08/26/19 08/26/19 History Atorvastatin [Lipitor] 80 mg PO HS@2100 08/26/19 08/26/19 History Bisacodyl [Dulcolax] 10 mg RECTAL DAILY PRN 08/26/19 08/26/19 History Donepezil HCl [Aricept] 10 mg PO HS@209908/26/19 08/26/19 History INSULIN LISPRO (HumaLOG) [humaLOG] 6 unit SQ TID@0700,1100,1630 08/26/19 08/26/19 History INSULIN LISPRO (HumaLOG) [humaLOG] See Protocol SQ ACHS 08/26/19 08/26/19 History Insulin Detemir (Levemir) [Levemir] 30 unit SQ HS@209908/26/19 08/26/19 History Ipratropium-Albuterol Nebulize 3 ml INHALATION RT-Q4H PRN 08/26/19 08/26/19 History [Duoneb 0.5 mg-3 mg/3 ml Soln] Ipratropium-Albuterol Nebulize 3 ml INHALATION RT-QID@06,12,17,21 08/26/19 08/26/19 History [Duoneb 0.5 mg-3 mg/3 ml Soln] Lisinopril [Zestril] 2.5 mg PO DAILY@0800 08/26/19 08/26/19 History Magnesium Hydroxide [Milk of 7,200 mg PO DAILY PRN 08/26/19 08/26/19 History Magnesia Concentrate] Memantine [Namenda] 5 mg PO DAILY@0800 08/26/19 08/26/19 History Na Phos,M-B/Na Phos,Di-Ba [Fleet 133 ml RECTAL ONCE PRN 08/26/19 08/26/19 History Adult] QUEtiapine FUMARATE [SEROquel] 200 mg PO HS@209908/26/19 08/26/19 History QUEtiapine [SEROquel] 12.5 mg PO BID@0800,1700 08/26/19 08/26/19 History Allergies Allergy/AdvReac Type Severity Reaction Status Date / Time No Known Allergies Allergy Verified 08/26/19 16:31 Physical Exam Vitals: Vital Signs Temp Pulse Pulse Resp BP BP Pulse Ox 08/27/19 15:58 16 08/27/19 13:38 98.5 F 76 17 102/52 96 08/27/19 09:32 69 08/27/19 09:18 76 97 08/27/19 07:45 97.7 F 77 16 131/58 99 08/27/19 01:52 97.6 F 85 17 111/53 92 L 08/26/19 20:13 85 08/26/19 20:08 97 08/26/19 20:04 85 08/26/19 19:29 98.4 F 74 16 127/68 96 08/26/19 18:05 97.3 F L 75 17 105/62 97 08/26/19 17:30 98.0 F 88 18 158/81 98 Intake and Output 08/27/19 08/27/19 08/27/19 06:59 14:59 22:59 Intake Total 725 Balance 725 Intake: Intake, IV Titration 725 Amount Ampicillin-Sulbactam 3 gm 200 In Sodium Chloride 0.9% 100 ml @ 200 mls/hr IVPB Q6HR [facility] Rx#:[id number] Sodium Chloride 0.9% 1, 525 000 ml @ 75 mls/hr IV . [id number] Rx#:[id number] Other: # Voids 3 1 # Bowel Movements 1 PHYSICAL EXAM: VITAL SIGNS: As above GENERAL: Sitting up in bed, pleasantly confused, alert and oriented to person HEENT: Conjunctivae normal. eyes normal. No tenderness in mastoid region. NECK: No JVD. No thyroid enlargement. No LNs CARDIOVASCULAR: S1, S2 regular.. No murmur RESPIRATION: Breath sounds diminished in the bases. No rhonchi or crackles. No bronchial breathing. ABDOMEN: Soft, nontender . No guarding. no masses palpable. No ascites, No hepatosplenomegaly.Bowel sounds heard. LEGS: No edema. no swelling PSYCHIATRY: Alert and oriented X1, mood and affect normal. NERVOUS SYSTEM: Cranial N 2-12 grossly normal. Moves all 4 limbs. Diffuse weakness, No focal deficits. Strength and sensation grossly intact. Skin: no rash Lymphatic system. No LN neck axilla Results CBC & Chem 7: 08/26/19 13:21 08/26/19 13:21 Labs: Abnormal Lab Results - Last 24 Hours (Table) 08/26/19 08/27/19 08/27/19 Range/Units 20:10 07:04 07:06 POC Glucose (mg/dL) 311 H 35 L 35 L (75-99) mg/dL 01/30/20 01/30/20 01/30/20 Range/Units 07:34 07:49 08:08 POC Glucose (mg/dL) 46 L 58 L 63 L (75-99) mg/dL 08/27/19 08/27/19 Range/Units 08:11 10:43 POC Glucose (mg/dL) 71 L 127 H (75-99) mg/dL Microbiology - Last 24 Hours (Table) 08/26/19 13:21 Blood Culture - Preliminary Blood No Growth after 24 hours Thrombosis Risk Factor Assmnt - Choose All That Apply Any of the Below Risk Factors Present?: Yes Each Factor Represents 1 point: Abnormal pulmonary function (COPD) Each Risk Factor Represents 3 Points: Age 75 years or older Thrombosis Risk Factor Assessment Total Risk Factor Score: 4 Thrombosis Risk Factor Assessment Level: Moderate Risk Assessment and Plan Assessment: acute metabolic encephalopathy secondary to infection,blood cultures pending.UA negative, possibly related to acute sinusitis, possible bilateral pneumonia. acute sinusitis ventriculomegaly, mild to moderate, probably related to central cerebral atrophy, rule out normal pressure hydrocephalus. Neurology consulted Anemia, possibly chronic secondary to chronic renal failure stage II Possible bilateral lower lobe pneumonia, community-acquired Parkinson's disease with advancing dementia Diabetes mellitus Hypertension Hyperlipidemia Prostate disorder Depression Former nicotine dependence plan: Continue on current medication regime ,monitoring and symptomatic treatment. Neurology, infectious disease consulted. Maintain IV antibiotics.blood cultures pending. close monitoring of electrolytes and renal function with repeat labs ordered for a.m. PT/OT consulted. The impression and plan of care has been dictated as directed. : I performed a history and examination of this patient, discussed the same with the dictator. I agree with the dictator's note ,documented as a scribe. Any additional findings or plans will be noted.
[2019-08-27] MEDS: ASPIRIN 81 MG PO SCH (17:23)
[2019-08-27] MEDS ORDERED: VANCOMYCIN IV PER PHARMACY 1 EACH MISC MISCELLANE PRN (17:27)
[2019-08-27] MEDS ORDERED: VANCOMYCIN 1,250 MG in SODIUM CHLORIDE 0.9% 250 ML IVPB ONE (18:00)
[2019-08-27 20:16] LABS: Glucose,Whole Blood 90 mg/dL (75-99)
[2019-08-27] MEDS: ATORVASTATIN 80 MG TAB PO SCH (20:21)
[2019-08-27] MEDS: DONEPEZIL 10 MG TAB PO SCH (20:21)
[2019-08-27] MEDS: INSULIN DETEMIR (LEVEMIR) 100 UNIT/ML SYR SQ SCH (20:21)
[2019-08-27] MEDS: QUEtiapine 200 MG TAB PO SCH (20:21)
[2019-08-27] MEDS: DIVALPROEX ER 500 MG TAB.ER.24H PO SCH (20:21)
[2019-08-28] MEDS: AMPICILLIN-SULBACTAM 3 GM in SODIUM CHLORIDE 0.9% 100 ML IVPB SCH ×4 (05:01→23:42)
[2019-08-28 07:04] LABS: Glucose,Whole Blood 35 mg/dL (75-99)
[2019-08-28 07:06] LABS: Glucose,Whole Blood 40 mg/dL (75-99)
[2019-08-28] MEDS: INSULIN ASPART (NovoLOG) 100 UNIT/ML VIAL SQ SCH ×7 (07:18→20:01)
[2019-08-28 07:22] LABS: Basophils % (A) 1 %; Eosinophils # (A) 0.1 k/uL (0-0.7); Eosinophils % (A) 1 %; HCT 28.6 % (39.0-53.0); HGB 8.9 gm/dL (13.0-17.5); Hypochromasia Slight; Lymphocytes # (A) 0.8 k/uL (1.0-4.8); Lymphocytes % (A) 18 %; MCH 26.6 pg (25.0-35.0); MCHC 31.2 g/dL (31.0-37.0); MCV 85.2 fL (80.0-100.0); Mean Platelet Volume 7.7; Monocytes # (A) 0.3 k/uL (0-1.0); Monocytes % (A) 7 %; Neutrophils # (A) 3.1 k/uL (1.3-7.7); Neutrophils % (A) 71 %; Platelet Count 255 k/uL (150-450); RBC 3.36 m/uL (4.30-5.90); RDW 13.7 % (11.5-15.5); WBC 4.4 k/uL (3.8-10.6)
[2019-08-28] MEDS: VANCOMYCIN 1,250 MG in SODIUM CHLORIDE 0.9% 250 ML IVPB SCH ×2 (07:26→19:54)
[2019-08-28 07:32] LABS: Glucose,Whole Blood 34 mg/dL (75-99)
[2019-08-28 07:36] LABS: Glucose,Whole Blood 33 mg/dL (75-99)
[2019-08-28 07:52] LABS: African American GFR (CKD) >90 (>60 ml/min/1.73 sqM); Anion Gap 5 mmol/L; Blood Urea Nitrogen 13 mg/dL (9-20); Calcium 8.5 mg/dL (8.4-10.2); Carbon Dioxide 29 mmol/L (22-30); Chloride 106 mmol/L (98-107); Non-African American GFR(CKD) 82 (>60 ml/min/1.73 sqM); Potassium 3.9 mmol/L (3.5-5.1); Sodium 140 mmol/L (137-145)
[2019-08-28 07:59] LABS: Glucose,Whole Blood 53 mg/dL (75-99)
[2019-08-28] MEDS: MEMANTINE 5 MG TAB PO SCH (08:02)
[2019-08-28] MEDS: LISINOPRIL 2.5 MG TAB PO SCH (08:02)
[2019-08-28 08:11] LABS: Glucose 33 mg/dL (74-99)
[2019-08-28 08:23] LABS: Glucose,Whole Blood 55 mg/dL (75-99)
--- NOTE | 2019-08-28 08:39 | CONS ---
CONSULTATION DATE OF SERVICE: 08/10/2019 REASON FOR CONSULTATION: Gram-positive bacteremia. HISTORY OF PRESENT ILLNESS: The patient is a 79-year-old male who has been sent to the ER at [facility] yesterday afternoon from the care home as the patient was noticed to be less responsive and not himself. Apparently the patient did have a fever as well. However, it is not clear how high the fever was. Patient on arrival to the ER did not provide any specific history and when asked specifically, he denies any headache, chest pain, shortness of breath or cough to me. No nausea, vomiting, abdominal pain, or any diarrhea on arrival to the ER. Patient did have a chest x-ray which shows subsegmental bibasilar atelectasis, correlate to exclude pneumonia. CT of the brain negative for any bleed. Patient on inpatient did have a fever of 100.3 and the patient's white count was normal. UA was negative. Influenza serology was negative. The patient was started on Unasyn. Subsequent blood culture came back positive with gram-positive cocci. Vancomycin was added. Infectious Disease was consulted for further recommendations regarding antibiotic. Most of the information has been obtained from review of the chart, talking to the nursing staff as the patient is not a very good historian. REVIEW OF SYSTEMS: Positive points has been mentioned in HPI. Complete review of systems could not be obtained because of underlying dementia. PAST MEDICAL HISTORY: Hypertension, hyperlipidemia, prostate disorder, diabetes mellitus, and dementia. PAST SURGICAL HISTORY: Appendectomy and cholecystectomy. SOCIAL HISTORY: 1. Currently a care home resident. 2. Remote history of smoking, no drinking or drug use. FAMILY HISTORY: Mother history of diabetes mellitus. ALLERGIES: No known drug allergies. MEDICATIONS: Include the patient is currently on Tylenol, DuoNeb, Unasyn, aspirin, Lipitor, Dulcolax, Depakote, Aricept, NovoLog, Levemir, Zestril, Namenda, vancomycin pharmacy to dose. PHYSICAL EXAMINATION: Blood pressure is 150/67, pulse of 73, temperature 98.6, he is 99% on room air. General description is an elderly male lying in bed in no distress. No tachypnea or accessory muscle for respiration use. HEENT: Examination shows pallor, no scleral icterus. Oral mucosa is dry. No pharyngeal erythema or thrush. NECK: Trachea central, no thyromegaly. LUNGS: Unlabored breathing, decreased breath sounds at the bases. No wheeze or crackle. HEART: S1, S2. Regular rate and rhythm. ABDOMEN: Soft, no tenderness. No guarding or rigidity. No organomegaly. EXTREMITIES: No edema of the feet. SKIN EXAMINATION: No ulcer or mass palpable. NEUROLOGICAL: Patient is awake, alert, oriented. Mood and affect normal. LABS: BUN of 20, creatinine is 1.15. Electrolyte has been normal. Hemoglobin 9.1, white count of 4.6. UA is negative. As mentioned above, blood culture with gram- positive cocci. DIAGNOSTIC IMPRESSION AND PLAN: Patient presented to hospital with mental status changes. The patient did have a fever now with evidence of a gram-positive bacteremia. The patient's chest x-ray has been suspicious for pneumonia, could be the source as the patient currently with no other definitive focus of infection. UA was negative. No evidence of cellulitis. Abdomen was soft and clear on examination. PLAN: 1. Blood cultures will be repeated to document clearance of bacteremia and wait for the final identification of the blood culture. 2. Vancomycin, pharmacy to dose target trough of 15, . 3. We will follow up on his clinical condition and culture to further adjust medication if needed. Thank you for this consultation. Will follow this patient along with you. MMODL / IJN: [id number] /
[2019-08-28 08:41] LABS: Glucose,Whole Blood 96 mg/dL (75-99)
[2019-08-28] MEDS: IPRATROPIUM-ALBUTEROL 3 ML NEB INHALATION SCH ×4 (09:14→20:47)
[2019-08-28 11:59] LABS: Glucose,Whole Blood 219 mg/dL (75-99)
[2019-08-28] MEDS ORDERED: Potassium Replacement Protocol 1 EACH MISC MISCELLANE PRN (16:50)
--- NOTE | 2019-08-28 17:03 | P.PN ---
Subjective Progress Note Date: 08/28/19 This is a 79-year-old male resident of [facility] presented to the emergency room with decreased level of consciousness, decreased oral intake, denied fever or chills in a patient with dementia. Denied abdominal pain. Denies cough. Chest x-ray reporting subsegmental bibasilar atelectatic changes possible pneumonia. T-max 100.3, WBC 4.6, creatinine 1.15. Blood sugars elevated, on admission at 311. Influenza A and B not detected. UA negative. Brain CT reported stable mild to moderate ventriculomegaly probably related to central cerebral atrophy, rule out normal pressure hydrocephalus. No acute intracranial abnormality otherwise seen. Moderate to severe chronic ethmoid sinus disease with some trapped fluid within the inferior left mastoid air cells, possible mastoiditis. EKG reported normal sinus rhythm possible inferior infarct, age undetermined. Troponins pending.Denies any chest pain or palpitations.IV fluid hydration,antibiotics initiated, blood cultures obtained. 08/28/2019 antibiotics adjusted further yesterday afternoon to vancomycin regarding blood cultures positive with gram-positive cocci. Evaluated by infectious disease with recommendations noted and appreciated. 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 Patient received half his home dose of Levemir last night.Denies chest pain, palpitations or shortness of breath. Renal function improving. Reports no cough. Afebrile, normal WBC. Objective - Vital Signs Vital signs: Vital Signs Temp 98.6 F 08/28/19 14:48 Pulse 75 08/28/19 14:48 Resp 16 08/28/19 14:48 BP 154/68 08/28/19 14:48 Pulse Ox 97 08/28/19 14:48 Intake & Output 08/27/19 08/28/19 08/28/19 18:59 06:59 18:59 Intake Total 450 Balance 450 Intake: Intake, IV Titration 450 Amount Ampicillin-Sulbactam 3 gm 200 In Sodium Chloride 0.9% 100 ml @ 200 mls/hr IVPB Q6HR [facility] Rx#:[id number] Vancomycin 1,250 mg In 250 Sodium Chloride 0.9% 250 ml @ 125 mls/hr IVPB Q12H [facility] Rx#:[id number] Other: # Voids 1 2 1 # Bowel Movements 1 - Exam PHYSICAL EXAM: VITAL SIGNS: As above GENERAL: Sitting up in bed, pleasantly confused, alert and oriented to person HEENT: Conjunctivae normal. eyes normal. No tenderness in mastoid region. NECK: No JVD. No thyroid enlargement. No LNs CARDIOVASCULAR: S1, S2 regular.. No murmur RESPIRATION: Breath sounds diminished in the bases. No rhonchi or crackles. No bronchial breathing. ABDOMEN: Soft, nontender . No guarding. no masses palpable. No ascites, No hepatosplenomegaly.Bowel sounds heard. LEGS: No edema. no swelling PSYCHIATRY: Alert and oriented X1, mood and affect normal. NERVOUS SYSTEM: Cranial N 2-12 grossly normal. Moves all 4 limbs. Diffuse weakness, No focal deficits. Strength and sensation grossly intact. Skin: no rash Lymphatic system. No LN neck axilla Microbiology 08/26/19 13:21 Blood Blood Culture Gram Stain - Preliminary 08/26/19 13:21 Blood Blood Culture - Preliminary Coagulase Negative Staph 08/26/19 13:21 Blood Blood Culture - Final - Labs CBC & Chem 7: 08/28/19 06:37 08/28/19 06:37 Labs: Abnormal Lab Results - Last 24 Hours (Table) 08/27/19 08/28/19 08/28/19 Range/Units 16:36 06:37 06:37 RBC 3.36 L (4.30-5.90) m/uL Hgb 8.9 L (13.0-17.5) gm/dL Hct 28.6 L (39.0-53.0) % Lymphocytes # 0.8 L (1.0-4.8) k/uL Glucose 33 L* (74-99) mg/dL POC Glucose (mg/dL) 172 H (75-99) mg/dL 08/28/19 08/28/19 08/28/19 Range/Units 07:02 07:04 07:31 RBC (4.30-5.90) m/uL Hgb (13.0-17.5) gm/dL Hct (39.0-53.0) % Lymphocytes # (1.0-4.8) k/uL Glucose (74-99) mg/dL POC Glucose (mg/dL) 35 L 40 L 34 L (75-99) mg/dL 08/28/19 08/28/19 08/28/19 Range/Units 07:35 07:58 08:21 RBC (4.30-5.90) m/uL Hgb (13.0-17.5) gm/dL Hct (39.0-53.0) % Lymphocytes # (1.0-4.8) k/uL Glucose (74-99) mg/dL POC Glucose (mg/dL) 33 L 53 L 55 L (75-99) mg/dL 08/28/19 Range/Units 11:57 RBC (4.30-5.90) m/uL Hgb (13.0-17.5) gm/dL Hct (39.0-53.0) % Lymphocytes # (1.0-4.8) k/uL Glucose (74-99) mg/dL POC Glucose (mg/dL) 219 H (75-99) mg/dL Microbiology - Last 24 Hours (Table) 08/26/19 13:21 Blood Culture Gram Stain - Preliminary Blood Blood Culture - Preliminary Coagulase Negative Staph 08/26/19 13:21 Blood Culture - Final Blood Assessment and Plan Assessment: acute metabolic encephalopathy secondary to infection, UA negative, possibly related to acute sinusitis, possible bilateral pneumonia. acute sinusitis Bacteremia, gram-positive ventriculomegaly, mild to moderate, probably related to central cerebral atrophy, rule out normal pressure hydrocephalus. Neurology consulted Anemia, possibly chronic secondary to chronic renal failure stage II Possible bilateral lower lobe pneumonia, community-acquired Parkinson's disease with advancing dementia Diabetes mellitus Hypertension Hyperlipidemia Prostate disorder Depression Former nicotine dependence plan: Continue on current medication regime ,monitoring and symptomatic treatment. Follow cultures closely, Continue on vancomycin. close monitoring of electrolytes and renal function with repeat labs ordered for a.m. The impression and plan of care has been dictated as directed. : I performed a history and examination of this patient, discussed the same with the dictator. I agree with the dictator's note ,documented as a scribe. Any additional findings or plans will be noted.
[2019-08-28 17:09] LABS: Glucose,Whole Blood 239 mg/dL (75-99)
[2019-08-28] MEDS: ASPIRIN 81 MG PO SCH (17:34)
[2019-08-28] MEDS: ATORVASTATIN 80 MG TAB PO SCH (19:54)
[2019-08-28] MEDS: QUEtiapine 200 MG TAB PO SCH (19:54)
[2019-08-28] MEDS: DONEPEZIL 10 MG TAB PO SCH (19:54)
[2019-08-28] MEDS: DIVALPROEX ER 500 MG TAB.ER.24H PO SCH (19:55)
[2019-08-28 19:58] LABS: Glucose,Whole Blood 279 mg/dL (75-99)
[2019-08-28] MEDS ORDERED: INSULIN DETEMIR (LEVEMIR) 100 UNIT/ML SYR SQ SCH (21:00)
--- NOTE | 2019-08-28 21:57 | P.CNNES ---
History of Present Illness Consult date: 08/28/19 Reason for Consult: rule out NPH Chief complaint: AMS History of Present Illness: HISTORY OF PRESENT ILLNESS: Thank you for allowing me to evaluate Mr. Blaze Gomez. Mr. Gomez is a 79 year-old man with PMhx of dementia, DM, HLD, HTN, prostate disorder, cataracts, depression, who presents from [facility] for AMS, consulting Neurology for rule out NPH. Patient has been seen by Neurology, in 08/2018 for rule out TIA for L-sided weakness. Unknown how long patient has been having symptoms of dementia. Patient with no complaints at this time. PAST MEDICAL HISTORY: dementia, DM, HLD, HTN, prostate disorder, cataracts, depression PAST SURGICAL HISTORY: Appendectomy, cholecystectomy, "R carotid artery cleaned out" HOME MEDICATIONS: Depakote ALLERGIES: NKDA SOCIAL HISTORY: Former smoker FAMILY HISTORY: Mother DM. REVIEW OF SYSTEMS: The 14 systems are reviewed and no additional points are identified compared to the review of systems documented history and physical PHYSICAL EXAMINATION: VITAL SIGNS: T 97.5 HR 71 RR 16 BP 155/74 O2 sat 97% on RA GEN.: NAD, just woken up, mostly cooperative HEENT: NCAT, sclera without icterus NECK: Supple SKIN AND EXTREMITIES: Warm to touch, no edema NEURO: MENTAL STATUS: Patient alert and oriented to name only. Able to name with some redirection and repeat, following all commands readily CRANIAL NERVES II THROUGH XII: II: Pupils are equal and reactive to light symmetrically. Blinks to threat bilaterally. III, IV, : No ptosis. Extraocular movements full. No nystagmus. V: Facial sensation intact from V1-3. VII. No clear facial asymmetry. IX, X: Symmetric palate elevation. XI: Shoulder shrug intact. XII: Tongue midline without fasciculation or atrophy. MOTOR: Normal bulk/tone. Moving all 4 extremities against gravity and also against some resistance. SENSORY: Intact to light touch in all 4 extremities. REFLEXES: 2+ throughout. Toes are downgoing. COORDINATION: Finger to nose intact. No dysmetria. GAIT: not assessed DIAGNOSTIC TESTING: LABORATORY: WBC 4.4 Hgb 8.9 Platelet 255 Na 140 K 3.9 Cl 106 CO2 29 BUN 13 Cr. 0.89 glucose 33 troponin <0.012 IMAGING: CT Head w/o contrast 08/26/2019: Stable [id number] ventriculomegaly probably relates to central cerebral strophy. Correlate to exclude NPH. Modeate patchy changes of chronic small vessel ischemic disease. No acute i ntracranial abnormality is seen ASSESSMENT/RECOMMENDATIONS: 79 year-old man with PMhx of dementia, DM, HLD, HTN, prostate disorder, cataracts, depression, who presents from [facility] for AMS, consulting Neurology for rule out NPH. With NPH, gait instability is usually the first symptom and gradual cognitive dysfunction. Difficult to assess this patient's gait or obtain information about his dementia symptoms. Patient with cerebral atrophy on CT Head, which most likely is causing hydrocephalus ex vacuo. Even if patient were to have NPH, lumbar drainage or CSF shunting procedures would not necessarily help with patient's demential symptoms. Also, the perioperative and long-term morbidity and mortality of CSF shunting procedures are significant. Neurology will sign off at this time. Please contact with additional questions or concerns. 1. Past Medical History Past Medical History: Dementia, Diabetes Mellitus, Hyperlipidemia, Hypertension, Prostate Disorder Additional Past Medical History / Comment(s): "right carotid artery cleaned out".. cataracts History of Any Multi-Drug Resistant Organisms: None Reported Past Surgical History: Appendectomy, Cholecystectomy Past Anesthesia/Blood Transfusion Reactions: No Reported Reaction Past Psychological History: Depression Smoking Status: Former smoker Past Alcohol Use History: None Reported Past Drug Use History: None Reported - Past Family History Mother Family Medical History: Diabetes Mellitus Father History Unknown: Yes Medications and Allergies Home Medications Medication Instructions Recorded Confirmed Type Divalproex ER [Depakote ER] 500 mg PO HS@209901/19/19 08/26/19 History Acetaminophen [Tylenol 8 Hour] 650 mg PO Q4H PRN 08/26/19 08/26/19 History Aspirin 81 mg PO DAILY@1700 08/26/19 08/26/19 History Atorvastatin [Lipitor] 80 mg PO HS@209908/26/19 08/26/19 History Bisacodyl [Dulcolax] 10 mg RECTAL DAILY PRN 08/26/19 08/26/19 History Donepezil HCl [Aricept] 10 mg PO HS@209908/26/19 08/26/19 History INSULIN LISPRO (HumaLOG) [humaLOG] 6 unit SQ TID@0700,1100,1630 08/26/19 08/26/19 History INSULIN LISPRO (HumaLOG) [humaLOG] See Protocol SQ ACHS 08/26/19 08/26/19 History Insulin Detemir (Levemir) [Levemir] 30 unit SQ HS@209908/26/19 08/26/19 History Ipratropium-Albuterol Nebulize 3 ml INHALATION RT-Q4H PRN 08/26/19 08/26/19 History [Duoneb 0.5 mg-3 mg/3 ml Soln] Ipratropium-Albuterol Nebulize 3 ml INHALATION RT-QID@06,12,17,21 08/26/19 08/26/19 History [Duoneb 0.5 mg-3 mg/3 ml Soln] Lisinopril [Zestril] 2.5 mg PO DAILY@0800 08/26/19 08/26/19 History Magnesium Hydroxide [Milk of 7,200 mg PO DAILY PRN 08/26/19 08/26/19 History Magnesia Concentrate] Memantine [Namenda] 5 mg PO DAILY@0800 08/26/19 08/26/19 History Na Phos,M-B/Na Phos,Di-Ba [Fleet 133 ml RECTAL ONCE PRN 08/26/19 08/26/19 History Adult] QUEtiapine FUMARATE [SEROquel] 200 mg PO HS@2100 08/26/19 08/26/19 History QUEtiapine [SEROquel] 12.5 mg PO BID@0800,1700 08/26/19 08/26/19 History Allergies Allergy/AdvReac Type Severity Reaction Status Date / Time No Known Allergies Allergy Verified 08/26/19 16:31 Physical Examination - Vital Signs Vital Signs: Vital Signs Temp Pulse Pulse Resp BP Pulse Ox 08/28/19 09:25 86 08/28/19 09:16 84 100 08/28/19 07:00 97.5 F L 71 16 155/74 97 08/28/19 00:59 98.1 F 83 18 155/57 96 08/27/19 18:50 98.6 F 73 18 154/67 99 08/27/19 15:58 16 08/27/19 13:38 98.5 F 76 17 102/52 96 Intake and Output 01/08/28/19 08/28/19 22:59 06:59 14:59 Intake Total 450 Balance 450 Intake: Intake, IV Titration 450 Amount Ampicillin-Sulbactam 3 gm 200 In Sodium Chloride 0.9% 100 ml @ 200 mls/hr IVPB Q6HR [facility] Rx#:[id number] Vancomycin 1,250 mg In 250 Sodium Chloride 0.9% 250 ml @ 125 mls/hr IVPB Q12H [facility] Rx#:[id number] Other: # Voids 2 Results - Laboratory Findings CBC and BMP: 08/28/19 06:37 08/28/19 06:37 Abnormal Lab Findings: Abnormal Labs 08/26/19 08/26/19 08/26/19 13:21 13:21 20:10 RBC 3.46 L Hgb 9.1 L Hct 29.2 L Lymphocytes # 0.6 L Glucose 73 L POC Glucose (mg/dL) 311 H Total Protein 5.9 L Albumin 3.1 L 08/27/19 08/27/19 08/27/19 07:04 07:06 07:34 RBC Hgb Hct Lymphocytes # Glucose POC Glucose (mg/dL) 35 L 35 L 46 L Total Protein Albumin 08/27/19 08/27/19 08/27/19 07:49 08:08 08:11 RBC Hgb Hct Lymphocytes # Glucose POC Glucose (mg/dL) 58 L 63 L 71 L Total Protein Albumin 08/27/19 08/27/19 08/28/19 10:43 16:36 06:37 RBC 3.36 L Hgb 8.9 L Hct 28.6 L Lymphocytes # 0.8 L Glucose POC Glucose (mg/dL) 127 H 172 H Total Protein Albumin 08/28/19 08/28/19 08/28/19 06:37 07:02 07:04 RBC Hgb Hct Lymphocytes # Glucose 33 L* POC Glucose (mg/dL) 35 L 40 L Total Protein Albumin 08/28/19 08/28/19 08/28/19 07:31 07:35 07:58 RBC Hgb Hct Lymphocytes # Glucose POC Glucose (mg/dL) 34 L 33 L 53 L Total Protein Albumin 08/28/19 08:21 RBC Hgb Hct Lymphocytes # Glucose POC Glucose (mg/dL) 55 L Total Protein Albumin
--- NOTE | 2019-08-28 22:49 | PN ---
PROGRESS NOTE DATE OF SERVICE: 08/28/2019 REASON FOR FOLLOW UP: Bacteremia. INTERVAL HISTORY: The patient is currently afebrile, has been breathing comfortably. The patient denies having any chest pain. No shortness of breath or cough. No nausea, vomiting, abdominal pain and no diarrhea. PHYSICAL EXAMINATION: Blood pressure 123/56 with a pulse of 84, temperature 98.6. He is 98% on room air. General description is an elderly male lying in bed in no distress. Respiratory system: Unlabored breathing. Decreased breath sounds in the base, with no wheeze. Heart S1, S2. Regular rate and rhythm. Abdomen soft. No tenderness. LABS: Hemoglobin 8.8, white count 4.4, BUN of 17, creatinine 0.89. Blood cultures finalized, coagulase negative Staph. DIAGNOSTIC IMPRESSION AND PLAN: Patient with a positive blood culture coagulase negative Staph, likely skin contamination. Vancomycin will be discontinued. Followup blood culture will be monitored and continue supportive care. MMODL / IJN: [id number] /
[2019-08-29 03:18] LABS: Glucose,Whole Blood 77 mg/dL (75-99)
[2019-08-29] MEDS: AMPICILLIN-SULBACTAM 3 GM in SODIUM CHLORIDE 0.9% 100 ML IVPB SCH ×4 (05:13→23:33)
[2019-08-29 06:51] LABS: Glucose,Whole Blood 48 mg/dL (75-99)
[2019-08-29 07:01] LABS: Basophils % (A) 0 %; Eosinophils # (A) 0.1 k/uL (0-0.7); Eosinophils % (A) 2 %; HCT 29.1 % (39.0-53.0); Lymphocytes # (A) 1.2 k/uL (1.0-4.8); Lymphocytes % (A) 28 %; MCH 26.5 pg (25.0-35.0); MCHC 31.1 g/dL (31.0-37.0); MCV 85.3 fL (80.0-100.0); Mean Platelet Volume 8.6; Monocytes # (A) 0.4 k/uL (0-1.0); Monocytes % (A) 9 %; Neutrophils # (A) 2.5 k/uL (1.3-7.7); Neutrophils % (A) 59 %; Platelet Count 242 k/uL (150-450); RBC 3.41 m/uL (4.30-5.90); WBC 4.2 k/uL (3.8-10.6)
[2019-08-29 07:08] LABS: Glucose,Whole Blood 46 mg/dL (75-99)
[2019-08-29] MEDS: INSULIN ASPART (NovoLOG) 100 UNIT/ML VIAL SQ SCH ×8 (07:10→19:57)
[2019-08-29 07:23] LABS: Glucose,Whole Blood 49 mg/dL (75-99)
[2019-08-29 07:25] LABS: African American GFR (CKD) >90 (>60 ml/min/1.73 sqM); Anion Gap 7 mmol/L; Blood Urea Nitrogen 10 mg/dL (9-20); Calcium 8.4 mg/dL (8.4-10.2); Carbon Dioxide 29 mmol/L (22-30); Chloride 107 mmol/L (98-107); Non-African American GFR(CKD) 79 (>60 ml/min/1.73 sqM); Sodium 143 mmol/L (137-145)
[2019-08-29] MEDS: LISINOPRIL 2.5 MG TAB PO SCH (07:25)
[2019-08-29] MEDS: MEMANTINE 5 MG TAB PO SCH (07:25)
[2019-08-29 07:38] LABS: Glucose 37 mg/dL (74-99)
[2019-08-29 07:47] LABS: Glucose,Whole Blood 70 mg/dL (75-99)
[2019-08-29] MEDS: IPRATROPIUM-ALBUTEROL 3 ML NEB INHALATION SCH ×4 (07:50→20:37)
[2019-08-29 11:38] LABS: Glucose,Whole Blood 197 mg/dL (75-99)
[2019-08-29] MEDS: HYDROcodone/APAP 5-325MG 1 EACH TAB PO PRN ×2 (13:12→18:25)
[2019-08-29 16:48] LABS: Glucose,Whole Blood 261 mg/dL (75-99)
[2019-08-29] MEDS ORDERED: VANCOMYCIN TROUGH DUE 1 EACH MISC MISCELLANE ONE (18:00)
[2019-08-29] MEDS: ASPIRIN 81 MG PO SCH (18:21)
[2019-08-29] MEDS: DEXTROSE 5%-0.9% NACL 1,000 ML IV SCH ×2 (18:27→23:34)
[2019-08-29] MEDS: DONEPEZIL 10 MG TAB PO SCH (19:53)
[2019-08-29] MEDS: ATORVASTATIN 80 MG TAB PO SCH (19:55)
[2019-08-29] MEDS: QUEtiapine 200 MG TAB PO SCH (19:56)
[2019-08-29 19:57] LABS: Glucose,Whole Blood 136 mg/dL (75-99)
[2019-08-29] MEDS: DIVALPROEX ER 500 MG TAB.ER.24H PO SCH (19:57)
--- NOTE | 2019-08-29 21:45 | PN ---
PROGRESS NOTE DATE OF SERVICE: 08/29/2019 This 79-year-old gentleman resident of [facility], was admitted with change in mental status, possibly thought to have bilateral pneumonia, multiple consultants are following the patient including Dr. Bell. Acute bilateral sinusitis also suspected. The blood cultures showed coagulase-negative Staph, possibly skin contamination. The patient also had blood sugar fluctuation with hypoglycemia also. The blood sugars remained 46, 49, 70, 197, 261. The insulin dose has been adjusted at this time. PAST MEDICAL HISTORY: Reviewed. REVIEW OF SYSTEMS: Cardio system: No angina or palpitations. Respirations: As mentioned earlier. GI: As mentioned earlier. no dysuria. Nervous systems: No numbness, or weakness. CURRENT MEDICATIONS: Reviewed and include: 1. [place] 5 mg q.6h p.r.n. 2. DuoNeb q.i.d. and p.r.n. 3. Unasyn 3 grams IV q.8. 4. Aspirin 81 mg. 5. Lipitor 40 mg. 6. Dulcolax. 7. Depakote 500 mg p.o. daily q.h.s. 8. Aricept 10 mg p.o. q.h.s. 9. NovoLog before meals and at bedtime. 10.NovoLog 6 units t.i.d. 11.Levemir 15 units subcu q.h.s. 12.Zestril 2.5 mg daily. 13.Magnesium oxide. 14.Namenda. 15.KCL. 16.Seroquel. PHYSICAL EXAM: Patient is alert, oriented x2. Pulse is 70. Blood pressure is 160/76, respirations 17, temperature 98.1, pulse ox 98% on room air. HEENT: Conjunctivae normal. Oral mucosa moist. NECK is no jugular venous distention. No carotid bruit. No lymph node enlargement. Cardiovascular systems: S1, S2 muffled. Respirations: Breath sounds diminished in the bases. Bilateral scattered rhonchi and crackles. ABDOMEN: Soft and nontender. LEGS are no edema. No swelling. CENTRAL NERVOUS SYSTEM: No focal deficits. LABS: Accu-Cheks 70, 197, 261. ASSESSMENT: 1. Change in mental status, acute metabolic encephalopathy secondary to sepsis possibly secondary to bilateral pneumonia. 2. Acute sinusitis. 3. Hypoglycemia with diabetes type 2 uncontrolled. 4. History of bacteremia, gram-positive coagulase-negative Staph. 5. Acute sinusitis. 6. Ventriculomegaly. 7. Anemia. 8. Diabetes mellitus type 2. 9. Hypertension. 10.Hyperlipidemia. 11.History of prostate disorder. 12.Depression. 13.History of nicotine dependence. RECOMMENDATIONS AND DISCUSSION: In this 79-year-old gentleman who presented with multiple complex medical issues, we will monitor the patient closely. Continue the current medications, management and symptomatic treatment. Continue the antibiotics. Closely follow with Infectious Disease. Otherwise, I would also recommend monitor the blood sugars closely. The patient was hypoglycemic this morning, but the patient appears to be picking up at this time. I would continue to monitor. Dr. Tracey will follow. MMARLETTEL / IJN: [id number] /
--- NOTE | 2019-08-30 00:07 | PN ---
PROGRESS NOTE DATE OF SERVICE: 08/29/2019 REASON FOR FOLLOWUP: 1. Positive blood culture. 2. Possible pneumonia. INTERVAL HISTORY: The patient is currently afebrile, has been breathing comfortably. The patient denies having any chest pain or shortness of breath. He did have some cough, no sputum. No nausea, no vomiting. No abdominal pain or diarrhea. PHYSICAL EXAMINATION: Blood pressure 154/64 with a pulse of 99. Temperature is 97.7. He is 96% on room air. General description is an elderly male lying in bed in no distress. Respiratory system: Unlabored breathing, clear to auscultation anteriorly. Heart S1, S2. Regular rate and rhythm. ABDOMEN: Soft, no tenderness. LABS: Hemoglobin with white count 4.2, BUN of 10, creatinine 0.92. DIAGNOSTIC IMPRESSION AND PLAN: 1. Patient with a positive blood culture. Coagulase negative Staph. Likely skin contamination. Blood cultures have been negative. Vancomycin has been discontinued. 2. Patient with question of pneumonia. Chest x-ray will be repeated. The patient is covered with Unasyn. Family at the bedside. Questions were answered. MMODL / IJN: [id number] /
[2019-08-30] MEDS: IPRATROPIUM-ALBUTEROL 3 ML NEB INHALATION SCH ×4 (05:58→20:56)
[2019-08-30] MEDS: AMPICILLIN-SULBACTAM 3 GM in SODIUM CHLORIDE 0.9% 100 ML IVPB SCH ×4 (06:00→22:58)
[2019-08-30 06:07] LABS: Glucose,Whole Blood 162 mg/dL (75-99)
--- NOTE | 2019-08-30 06:57 | XR ---
EXAMINATION TYPE: XR chest 2V DATE OF EXAM: 08/30/2019 HISTORY: pneumonia. REFERENCE: Previous study dated 08/26/2019. FINDINGS: There is worsening left basilar airspace disease. There is a small left effusion. Heart siz e is upper limits of normal. IMPRESSION: 1. LEFT BASILAR AIRSPACE DISEASE EITHER REPRESENTING ATELECTASIS OR PNEUMONIA. 2. SMALL LEFT EFFUSION. 3. MILD CARDIOMEGALY.
[2019-08-30 07:07] LABS: Glucose,Whole Blood 173 mg/dL (75-99)
[2019-08-30] MEDS: INSULIN ASPART (NovoLOG) 100 UNIT/ML VIAL SQ SCH ×7 (08:17→20:51)
[2019-08-30] MEDS: INSULIN DETEMIR (LEVEMIR) 100 UNIT/ML SYR SQ SCH (08:39)
[2019-08-30] MEDS: MEMANTINE 5 MG TAB PO SCH (08:39)
[2019-08-30] MEDS: LISINOPRIL 2.5 MG TAB PO SCH (08:39)
[2019-08-30] MEDS: HYDROcodone/APAP 5-325MG 1 EACH TAB PO PRN ×3 (08:39→22:55)
[2019-08-30 11:52] LABS: Glucose,Whole Blood 151 mg/dL (75-99)
[2019-08-30 17:06] LABS: Glucose,Whole Blood 186 mg/dL (75-99)
[2019-08-30] MEDS: ASPIRIN 81 MG PO SCH (17:07)
[2019-08-30 20:12] LABS: Glucose,Whole Blood 43 mg/dL (75-99)
[2019-08-30 20:32] LABS: Glucose,Whole Blood 52 mg/dL (75-99)
[2019-08-30] MEDS: DEXTROSE 5%-0.9% NACL 1,000 ML IV SCH (20:40)
[2019-08-30 20:51] LABS: Glucose,Whole Blood 53 mg/dL (75-99)
[2019-08-30] MEDS: DONEPEZIL 10 MG TAB PO SCH (20:52)
[2019-08-30] MEDS: ATORVASTATIN 80 MG TAB PO SCH (20:53)
[2019-08-30] MEDS: DIVALPROEX ER 500 MG TAB.ER.24H PO SCH (20:54)
[2019-08-30] MEDS: QUEtiapine 200 MG TAB PO SCH (20:54)
[2019-08-30 21:31] LABS: Glucose,Whole Blood 62 mg/dL (75-99)
[2019-08-30 22:22] LABS: Glucose,Whole Blood 95 mg/dL (75-99)
--- NOTE | 2019-08-30 23:41 | PN ---
PROGRESS NOTE DATE OF SERVICE: 08/30/2019 This 79-year-old gentleman who was admitted with change in mental status, metabolic encephalopathy, also had sepsis possibly bilateral pneumonia. The patient also had some confusion, which is improving at this time. The patient also had hypoglycemia after admission. The insulin dose has been changed but sugars have been elevated at this time. Patient being closely monitored. PAST MEDICAL HISTORY: Reviewed. REVIEW OF SYSTEMS: Cardiovascular system: No angina or palpitations. RESPIRATORY: As mentioned earlier. GASTROINTESTINAL: As mentioned earlier. no dysuria or hematuria. Nervous system: No numbness or weakness. CURRENT MEDICATIONS: Reviewed and include: 1. Tylenol p.r.n. 2. [place] 5 mg q.6h. 3. DuoNeb q.i.d. and p.r.n. 4. Unasyn 3 g q.6h. 5. Aspirin 81 mg. 6. Lipitor 80 mg q.h.s. 7. Dulcolax. 8. Depakote. 9. Aricept. 10.NovoLog scale. 11.Zestril. 12.Namenda. 13.Seroquel. PHYSICAL EXAM: Patient is alert, oriented x1. Pulse 78. Blood pressure 155/70, respirations 16, temperature 98.3, pulse ox 98% on room air. HEENT: Conjunctivae normal. NECK: No JVD. CARDIOVASCULAR: S1, S2 muffled. RESPIRATORY: Breath sounds diminished in the bases. Scattered rhonchi. No crackles. ABDOMEN: Soft, nontender. No mass palpable. LEGS are no edema. No swelling. CENTRAL NERVOUS SYSTEM: Diffusely weak. LAB: Investigations at this time shows the glucose is 136, 161, 73. Hemoglobin is 9. CBC within normal limits. ASSESSMENT: 1. Change in mental status acute metabolic encephalopathy secondary to sepsis possibly secondary to bilateral pneumonia present on admission. 2. Acute sinusitis. 3. Hypoglycemia with diabetes type 2 uncontrolled. 4. History of bacteremia, gram-positive, coagulase-negative Staph. 5. Acute sinusitis. 6. Ventriculomegaly. 7. Anemia. 8. Diabetes mellitus type 2. 9. Hypertension. 10.Hyperlipidemia. 11.History of prostate disorder. 12.History of depression. 13.History of nicotine dependence. 14.NO CODE, NO CPR, NO VENT. RECOMMENDATIONS AND DISCUSSION: In this 79-year-old gentleman who presented with multiple complex medical issues as mentioned earlier. We will monitor the patient closely. Continue the current medications, management and symptomatic treatment. The blood sugars are definitely improved but still slightly on the high side. Avoid hypoglycemia. Otherwise continue the rest of medications. Continue with antibiotics. Prognosis guarded. Discussed with the patient and family and Dr. Tracey will follow. Once the patient is stabilized possible ECF rehab. KARTHIKEYAN / ANDRIA: [id number] /
[2019-08-31 00:14] LABS: Glucose,Whole Blood 280 mg/dL (75-99)
[2019-08-31] MEDS: DEXTROSE 5%-0.9% NACL 1,000 ML IV SCH (04:33)
[2019-08-31 04:39] LABS: Glucose,Whole Blood 218 mg/dL (75-99)
[2019-08-31] MEDS: AMPICILLIN-SULBACTAM 3 GM in SODIUM CHLORIDE 0.9% 100 ML IVPB SCH ×2 (05:20→12:26)
[2019-08-31 06:48] LABS: Glucose,Whole Blood 175 mg/dL (75-99)
[2019-08-31] MEDS: INSULIN ASPART (NovoLOG) 100 UNIT/ML VIAL SQ SCH ×4 (07:50→11:47)
[2019-08-31] MEDS: INSULIN DETEMIR (LEVEMIR) 100 UNIT/ML SYR SQ SCH (07:51)
[2019-08-31 07:57] VITALS: RESP 16
[2019-08-31] MEDS: LISINOPRIL 2.5 MG TAB PO SCH (07:58)
[2019-08-31] MEDS: MEMANTINE 5 MG TAB PO SCH (07:58)
[2019-08-31 08:23] LABS: Glucose,Whole Blood 320 mg/dL (75-99)
[2019-08-31] MEDS: IPRATROPIUM-ALBUTEROL 3 ML NEB INHALATION SCH ×2 (09:41→12:58)
--- NOTE | 2019-08-31 10:39 | PN ---
PROGRESS NOTE DATE OF SERVICE: 08/30/2019 REASON FOR FOLLOWUP: 1. Positive blood culture likely contamination. 2. Left lower lobe pneumonia. INTERVAL HISTORY: The patient is currently afebrile, has been breathing comfortably. Has been complaining of more pain in her left leg area. No chest pain, shortness of breath or cough. No abdominal pain, no diarrhea. PHYSICAL EXAMINATION: Blood pressure 138/67, pulse of 66, temperature 97.6, he is 95% on room air. General description is elderly male, up in the chair in no distress. RESPIRATORY SYSTEM: Unlabored breathing. Decreased breath sounds in the bases, no wheeze. HEART: S1, S2. Regular rate and rhythm. ABDOMEN: Soft, no tenderness. LABS: No new labs have been obtained today. Blood culture repeat has been negative. DIAGNOSTIC IMPRESSION AND PLAN: 1. Patient with a positive blood culture, Staph epi and likely skin contaminant and no need for therapy for the same. 2. Patient with left lower lobe pneumonia. Patient is currently covered with Unasyn to continue, to finish therapy a short course of oral Augmentin and continue supportive care. MMODL / IJN: [id number] /
--- NOTE | 2019-08-31 11:20 | US ---
EXAMINATION TYPE: US venous doppler duplex LE DATE OF EXAM: 08/31/2019 11:09 AM COMPARISON: NONE CLINICAL HISTORY: rule out blood clot . Leg pain. Difficult exam due to large amount of shadowing art erial plaque bilaterally SIDE PERFORMED: Bilateral TECHNIQUE: The lower extremity deep venous system is examined utilizing real time linear array sonog kalpana with graded compression, doppler sonography and color-flow sonography. VESSELS IMAGED: External Iliac Vein (EIV) Common Femoral Vein Deep Femoral Vein Greater Saphenous Vein * Femoral Vein Popliteal Vein Small Saphenous Vein * Proximal Calf Veins (* superficial vessels) Right Leg: Negative for DVT Left Leg: Negative for DVT IMPRESSION: 1. No diagnostic evidence of DVT.
[2019-08-31 11:44] LABS: Glucose,Whole Blood 105 mg/dL (75-99)
--- NOTE | 2019-08-31 12:24 | P.DS ---
Providers Date of admission: 08/28/19 10:14 Expected date of discharge: 08/31/19 Attending physician: Franco Tracey Consults: 08/27/19 16:41 Consult Physician Routine Consulting Provider: Yelena Washington Consult Reason/Comments: Rule out normal pressure hydrocephalus Do you want consulting provider notified?: Yes 08/27/19 17:03 Consult Physician Routine Consulting Provider: Alec Bell Consult Reason/Comments: Bacteremia Do you want consulting provider notified?: Yes Primary care physician: [facility] Course: Final Diagnoses: acute metabolic encephalopathy secondary to infection, positive blood culture, staph epi, likely contamination.UA negative, possibly related to acute sinusitis, left basilar pneumonia acute sinusitis ventriculomegaly, mild to moderate, probably related to central cerebral atrophy, rule out normal pressure hydrocephalus. Neurology consulted Anemia, possibly chronic secondary to chronic renal failure stage II Possible bilateral lower lobe pneumonia, community-acquired Parkinson's disease with advancing dementia Diabetes mellitus Hypertension Hyperlipidemia Prostate disorder Depression Former nicotine dependence Hospital course: This a 79-year-old gentleman admitted with acute metabolic encephalopathy, chest x-ray suspicious for pneumonia and multiple other medical issues. Evaluated by infectious disease, received IV antibiotics with significant clinical improvement. Patient's been having episodes of hypoglycemia,. Lantus dose decreased, pre-meal insulin discontinued, maintained, sliding scale starting at Accu-Cheks of 150. Patient is being discharged to subacute rehab in a stable condition with guarded prognosis, pending clearance/discharge antibiotic from infectious disease. EXAM: GENERAL: Alert and oriented to person , no acute distress CARDIOVASCULAR: S1, S2 regular.. No murmur RESPIRATION: Breath sounds diminished in the bases. Occasional scattered rhonchi ABDOMEN: Soft, nontender . No guarding. no masses palpable. Bowel sounds heard. NERVOUS SYSTEM: Cranial N 2-12 grossly normal. Moves all 4 limbs. Diffuse weakness. The impression and plan of care has been dictated as directed. : I performed a history and examination of this patient, discussed the same with the dictator. I agree with the dictator's note ,documented as a scribe. Any additional findings or plans will be noted. Patient Condition at Discharge: Stable Plan - Discharge Summary Discharge Rx Participant: Yes New Discharge Prescriptions: New HYDROcodone/APAP 5-325MG [[place] 5-325] 1 each PO Q6HR PRN #12 tab PRN Reason: Pain Insulin Glargine [Lantus] 10 unit SQ DAILY #1 vial Continue Divalproex ER [Depakote ER] 500 mg PO HS@2100 Ipratropium-Albuterol Nebulize [Duoneb 0.5 mg-3 mg/3 ml Soln] 3 ml INHALATION RT-Q4H PRN PRN Reason: Shortness Of Breath Na Phos,M-B/Na Phos,Di-Ba [Fleet Adult] 133 ml RECTAL ONCE PRN PRN Reason: Constipation Bisacodyl [Dulcolax] 10 mg RECTAL DAILY PRN PRN Reason: Constipation Acetaminophen [Tylenol 8 Hour] 650 mg PO Q4H PRN PRN Reason: Pain INSULIN LISPRO (HumaLOG) [humaLOG] See Protocol SQ ACHS QUEtiapine FUMARATE [SEROquel] 200 mg PO HS@2100 Magnesium Hydroxide [Milk of Magnesia Concentrate] 7,200 mg PO DAILY PRN PRN Reason: Constipation Atorvastatin [Lipitor] 80 mg PO HS@2100 Ipratropium-Albuterol Nebulize [Duoneb 0.5 mg-3 mg/3 ml Soln] 3 ml INHALATION RT-QID@06,12,17,21 Memantine [Namenda] 5 mg PO DAILY@0800 Lisinopril [Zestril] 2.5 mg PO DAILY@0800 Aspirin 81 mg PO DAILY@1700 QUEtiapine [SEROquel] 12.5 mg PO BID@0800,1700 Donepezil HCl [Aricept] 10 mg PO HS@2100 Discharge Medication List Divalproex ER [Depakote ER] 500 mg PO HS@209901/19/19 [History] Acetaminophen [Tylenol 8 Hour] 650 mg PO Q4H PRN 08/26/19 [History] Aspirin 81 mg PO DAILY@1700 08/26/19 [History] Atorvastatin [Lipitor] 80 mg PO HS@209908/26/19 [History] Bisacodyl [Dulcolax] 10 mg RECTAL DAILY PRN 08/26/19 [History] Donepezil HCl [Aricept] 10 mg PO HS@209908/26/19 [History] INSULIN LISPRO (HumaLOG) [humaLOG] See Protocol SQ ACHS 08/26/19 [History] Ipratropium-Albuterol Nebulize [Duoneb 0.5 mg-3 mg/3 ml Soln] 3 ml INHALATION RT-Q4H PRN 08/26/19 [History] Ipratropium-Albuterol Nebulize [Duoneb 0.5 mg-3 mg/3 ml Soln] 3 ml INHALATION RT-QID@06,12,17,21 08/26/19 [History] Lisinopril [Zestril] 2.5 mg PO DAILY@0800 08/26/19 [History] Magnesium Hydroxide [Milk of Magnesia Concentrate] 7,200 mg PO DAILY PRN 08/26/19 [History] Memantine [Namenda] 5 mg PO DAILY@0800 08/26/19 [History] Na Phos,M-B/Na Phos,Di-Ba [Fleet Adult] 133 ml RECTAL ONCE PRN 08/26/19 [Histor y] QUEtiapine FUMARATE [SEROquel] 200 mg PO HS@2100 08/26/19 [History] QUEtiapine [SEROquel] 12.5 mg PO BID@0800,1700 08/26/19 [History] HYDROcodone/APAP 5-325MG [[place] 5-325] 1 each PO Q6HR PRN #12 tab 08/31/19 [Rx] Insulin Glargine [Lantus] 10 unit SQ DAILY #1 vial 08/31/19 [Rx] Follow up Appointment(s)/Referral(s): Ash Mansfield MD [Primary Care Provider] - 3 Days Activity/Diet/Wound Care/Special Instructions[facility] BMP [facility] 3 days Lantus decreased dose in am along with Sliding scale only starting at blood sugar 150, premeal insuling dcd- has temporarily been discontinued, fluctuating diet intake with hypoglycemia Discharge Disposition: TRANSFER TO SNF/F
[2019-08-31] MEDS ORDERED: INSULIN DETEMIR (LEVEMIR) 100 UNIT/ML SYR SQ SCH (12:30)
--- NOTE | 2019-08-31 14:46 | XR ---
EXAMINATION TYPE: XR Hip Bilateral and AP pelvis DATE OF EXAM: 08/31/2019 COMPARISON: NONE HISTORY: Bilateral hip and lower extremity pain TECHNIQUE: A single AP view of the pelvis is obtained. Two views of the bilateral hips or obtained. FINDINGS: There is no acute fracture/dislocation evident in the pelvis. The hip and sacroiliac join ts appear symmetric and aligned. There is mild acetabular roof sclerosis bilaterally. The overlying s oft tissue appears unremarkable. Extensive vascular calcifications. There is diffuse osseous demineralization. Two views of the bilateral hips show no acute fracture or dislocation. Ge[place] is seen within the right femoral head neck junction laterally. The overlying soft tissue is unremarkable. Sclerotic focus is seen of the right iliac bone measuring 6 mm. IMPRESSION: 1. No acute fracture or dislocation in the pelvis or either hip. 2. Mild bilateral femoral acetabular arthropathy and diffuse osseous demineralization. Extensive athe rosclerosis is also noted. 3. 6 mm sclerotic focus of the right iliac bone. This could relate to simply a bone island although o ther sclerotic bone lesion is possible. If there is further clinical concern bone scan could be perfo rmed.
[2019-08-31 15:36] VITALS: BP 154/74; PULSE 97; TEMP 98.5
--- NOTE | 2019-08-31 17:50 | PN ---
PROGRESS NOTE DATE OF SERVICE: 08/31/2019. REASON FOR FOLLOWUP: 1. Positive blood culture, likely contamination. 2. Possible left lower lobe pneumonia. INTERVAL HISTORY: The patient was seen on rounds this morning. The patient has been afebrile. The patient apparently did not have a good night's sleep and was sleepy this morning and was unable to provide any history. No vomiting or diarrhea was reported. PHYSICAL EXAMINATION: Blood pressure 154/74 with a pulse of 97, temperature 98.5. He is 95% on room air. General description is an elderly male lying in bed in no distress. Respiratory system: Unlabored breathing. Decreased breath sounds at the bases. No wheeze. Heart is S1, S2. Regular rate and rhythm. Abdomen soft. No tenderness. LABS: No new labs have been obtained today. Blood culture repeat has been negative. DIAGNOSTIC IMPRESSION AND PLAN: 1. Patient with positive blood culture, likely skin contamination. Follow up blood culture has been negative. No need for further workup for the same. 2. The patient with low-grade fever, possible left lower lobe pneumonia. The patient on Unasyn, to finish therapy with a short course of oral Augmentin. 3. Continue with supportive care. Son was at the bedside. His questions and concerns were answered. MMODL / IJN: [id number] /
== END 2019-08-31 15:38 | DRG 193 ==
LOC: EC 13:05 → 4SSUR 16:26 → OBSVTOIN 08-28 10:14
PROVIDERS: ADMIT Family Medicine; ATTEND Family Medicine
DX: J18.9 Pneumonia, unspecified organism (principal); G93.41 Metabolic encephalopathy; E11.649 Type 2 diabetes mellitus with hypoglycemia without coma; E11.36 Type 2 diabetes mellitus with diabetic cataract; D63.1 Anemia in chronic kidney disease; E11.22 Type 2 diabetes mellitus with diabetic chronic kidney disease; F02.80 Dementia in other diseases classified elsewhere, unspecified severity, without behavioral disturbance, psychotic disturbance, mood disturbance, and anxiety; G93.89 Other specified disorders of brain; G20 Parkinson's disease; E11.65 Type 2 diabetes mellitus with hyperglycemia; J01.90 Acute sinusitis, unspecified; E78.5 Hyperlipidemia, unspecified; I12.9 Hypertensive chronic kidney disease with stage 1 through stage 4 chronic kidney disease, or unspecified chronic kidney disease; N18.2 Chronic kidney disease, stage 2 (mild); H26.9 Unspecified cataract; J32.2 Chronic ethmoidal sinusitis; G31.9 Degenerative disease of nervous system, unspecified; F32.9 Major depressive disorder, single episode, unspecified; N42.9 Disorder of prostate, unspecified; Z79.82 Long term (current) use of aspirin; Z79.4 Long term (current) use of insulin; Z79.899 Other long term (current) drug therapy; Z87.891 Personal history of nicotine dependence; Z86.79 Personal history of other diseases of the circulatory system; Z90.49 Acquired absence of other specified parts of digestive tract; Z98.890 Other specified postprocedural states; Z83.3 Family history of diabetes mellitus
CPT/HCPCS: 36415; 51701; 70450; 71046; 73521; 80048; 80053; 81003; 83605; 84484; 85025; 85610; 85730; 87040; 87077; 87186; 87502; 93005; 93970; 94640; 94760; 96361; 96365; 99285